=== PATIENT | female | born 1970 | race Two or more races ===

== ENCOUNTER 2024-04-02 12:09 | Emergency (ER) | payer MEDICARE, MEDICAID, SELFPAY ==
--- NOTE | 2024-04-02 12:33 | PC.NURSE ---
SHELLIE; report received at this time. Pt coming from home s/p BLE swelling; pt missed dialysis yesterday. Upon arrival pt has labored breathing but VS remained stable. Pt slightly tachypneic in the 20's. Per manager fraud, We think it's because of her anxiety.
[2024-04-02 12:35] VITALS: BP 153/64; PULSE 81; PULSE 86; RESP 18; RESP 24; TEMP 36.8; O2SAT 99; BMI 40.2
[2024-04-02 12:38] VITALS: BP 153/64; PULSE 79; RESP 20; TEMP 36.9; O2SAT 100
--- NOTE | 2024-04-02 12:52 | PC.NURSE ---
DR. QUINN IN TO SEE PT
--- NOTE | 2024-04-02 13:19 | EDNOTE_ITS ---
ED SOB =RME/HPI General Chief Complaint: General Adult/Misc Complain Stated Complaint: SWOLLEN LEGS Time Seen by Provider: 04/02/24 12:39 Arrival date/time: 04/02/24 12:09 RME / HPI RME / HPI Narrative: 54 year old female with history of CVA, ESRD on HD T//Sun, hypertension, diabetes presents to the ED BIBA from home for evaluation of bilateral leg pain and shortness of breath today. States I couldn't breathe while taking her medi cations this morning. Per medics, patient was saturating well at 99% on room air. While in the ED, patient c feeling pain in her bilateral lower extremities of which she states is chronic (she takes [place] for) that radiates up to her abdomen and then to her chest causing shortness of breath. She has not been able to take her [place] for the last 2 days. Additionally reports she did not receive her dialysis treatment yesterday due to having diarrhea. Denies fevers, chills, cough, chest pain. Related Data Home Medications ?Medication ?Instructions ?Recorded ?Confirmed sertraline 50 mg tablet 50 mg PO QDAY 10/01/18 12/19/21 allopurinol 300 mg tablet 300 mg PO QDAY 01/01/20 12/19/21 folic acid 1 mg tablet 1 mg PO QDAY 09/22/20 12/19/21 calcium acetate(phosphat bind) 667 667 mg PO TID 01/12/21 12/19/21 mg capsule nifedipine 90 mg tablet,extended 90 mg PO QDAY 01/12/21 12/19/21 release 24 hr levetiracetam 500 mg tablet 500 mg PO BID 10/31/21 12/19/21 levothyroxine 50 mcg tablet 1 tab PO QDAY 12/19/21 12/19/21 Previous Rx's ?Medication ?Instructions ?Recorded hydralazine 100 mg tablet 100 mg PO TID #90 tabs 03/17/23 insulin glargine 100 unit/mL (3 10 unit (0.1 mL) subcut QPM #15 mL 03/17/23 mL) subcutaneous pen (Lantus Solostar U-100 Insulin) lisinopril 40 mg tablet 40 mg PO BID #60 tabs 03/17/23 atorvastatin 40 mg tablet 40 mg PO QPM 30 days #30 tabs 03/14/24 atorvastatin 40 mg tablet 40 mg PO QPM 30 days #30 tabs 03/14/24 clopidogrel 75 mg tablet (Plavix) 75 mg PO QDAY 28 days #28 tabs 03/14/24 clopidogrel 75 mg tablet (Plavix) 75 mg PO QDAY 28 days #28 tabs 03/14/24 Allergies Allergy/AdvReac Type Severity Reaction Status Date / Time No Known Allergies Allergy Verified 10/11/23 18:36 Review of Systems Review of Systems Narrative Review of Systems: Gen: No fever, no chills, no weight loss EYES: No discharge, no visual changes, no pain HEENT: No ear pain, no congestion, no sore throat PULM: +shortness of breath, no cough, no congestion CV: No chest pain, no dyspnea on exertion, no palpitations, no chest tightness GI: No nausea, no vomiting, no diarrhea, +abdominal pain down to extremities, no constipation : No frequency, no urgency,? no dysuria Musc/skel: +BLE pain, no joint pain, no back pain Skin: No rash, no ecchymosis, no lesions Psyc: No hallucinations, no depression Heme/Lymph: No easy bleeding or bruising tendencies Neuro: No weakness, no headache Past Medical History Past Medical History NEUROLOGIC: Positive Neurological Disorders, Cerebrovascular Accident, Seizures and Peripheral Neuropathy CARDIAC: Positive Cardiac Disorders, Coronary Artery Disease, Hypercholesterolemia and Hypertension RESPIRATORY: Positive Asthma GASTROINTESTINAL: Positive Gastrointestinal Disorders, Ulcer and Obesity GENITOURINARY: Positive Genitourinary Disorders and Dialysis REPRODUCTIVE: Positive Previous Pregnancies ENT: Positive Cataracts and Retinal Detachment ENDOCRINE: Positive Endocrine Disorders, Diabetes Mellitus Type 1, Diabetes Mellitus Type 2, Hyperthyroidism and Hypothyroidism PSYCHO/SOCIAL: Positive Depression and Anxiety OTHER HISTORY: Positive Hospitalization and Falls Family History FAMILY HISTORY: Positive Family Cardiac Disorders Surgical History SURGICAL: Positive Cardiac Surgery, Vascular Surgery, Eye Surgery and Amputation Social History SMOKING STATUS: Never smoker SECOND HAND EXPOSURE: No SUBSTANCE USE: does not use ED Exam Narrative Physical exam: GENERAL APPEARANCE: AxOx4, no obvious distress, nontoxic appearing HEENT: NC, AT. MMM. EOMI, clear conjunctiva, oropharynx clear. NECK: Supple without lymphadenopathy. No stiffness or restricted ROM. HEART: Normal rate and regular rhythm, normal S1/S1, no m/r/g LUNGS: CTAB, moving air well. No crackles or wheezes are heard. ABDOMEN: Soft, nontender, nondistended with good bowel sounds heard. BACK: No midline C/T/L spine pain or deformity, No CVAT, no obvious deformity. EXTREMITIES: Tense bilateral lower extremities. Without cyanosis or clubbing. MUSCULOSKELETAL: FROM of all major joints, no chest tenderness NEUROLOGICAL: Grossly nonfocal. Alert and oriented, moving all 4 extremities. CN not formally tested but appear grossly intact. Skin: Warm and dry without any rash. Course Quality Measures none Orders Category Date Time Status CBC Stat Lab 04/02/24 12:40 Completed CMP [Comprehensive Metabolic Panel] Stat Lab 04/02/24 14:27 Completed Diazepam [Valium] Med 04/02/24 16:11 Discontinued 10 mg PO X1 ONE HYDROcodone*/APAP 5/325 [[place] 5/325] Med 04/02/24 12:51 Discontinued 2 tab PO X1 ONE Sodium Chloride 0.9% 1000 ml [Ns] 1,000 ml Med 04/02/24 12:51 Discontinued IV 999 mls/hr Reevaluation(s) Reevaluation #1: Patient is sleeping comfortably without signs of respiratory distress. when awoken for reevaluation she still complains of bilateral lower extremity pain. Without signs of respiratory distress. Time: 13:00 Vital Signs Vital signs: Vital Signs Temperature 98.2 F 04/02/24 12:35 Pulse Rate 86 04/02/24 12:35 Respiratory Rate 24 H 04/02/24 12:35 Blood Pressure 153/64 H 04/02/24 12:35 Pulse Oximetry (%) 99 04/02/24 12:35 Oxygen Delivery Method Room Air 04/02/24 12:35 Pulse ox is 99% on room air which is adequate. Shortness of Breath / Dyspnea MDM Narrative MDM Narrative:: Ms. Contreras presents to the emergency department with essentially full body symptoms which includes bilateral lower extremity pain, rating up to the abdomen, causing her to feel short of breath. She is on dialysis, however she does not appear fluid overloaded today. After giving her a dose of hydrocodone of which she takes at home, she is sleeping comfortably here in the emergency department, flat, without respiratory distress or hypoxia. Laboratory testing sent shows no acute metabolic findings, emergent dialysis is not indicated today. As she does appear to have chronic pain, she is advised to follow-up with her primary care doctor for any adjustments or management of her chronic pain. Although she sleeps comfortably, when awake she appears quite anxious, hyperventilates, and panics. She gets very angry with this and is refusing any anxiolytics. ITequila, am scribing for and in the presence of Dr. Lynch. Patient data External records reviewed:: [facility] previous records (I reviewed admission from 03/12/2024 through 03/15/2024) and EMS form Clinical information provided by:: patient and EMS Social determinants that could affect healthcare access:: none Patient has the following chronic illnesses:: CVA, ESRD on HD T/Th/Sat, hypertension, diabetes How is presenting disease/condition affected by chronic disease/condition?: exacerbated by Evaluation data The following diagnostics were reviewed and interpreted by me:: lab results Lab and/or radiology exams considered but not ordered:: None Interpretation Summary: As noted above Medications / Prescriptions Medications or Prescriptions considered but not ordered:: None Medication administrations:: Medication Administration History Discontinued Medications Hydrocodone Bitart/Acetaminophen (Hydrocodone/Apap 5/325 Tablet) 2 tab PO X1 ONE Stop: 04/02/24 12:52 Last Admin: 04/02/24 13:26 Dose: 2 tab Documented By: STACY Diazepam (Diazepam 5 Mg Tablet) 10 mg PO X1 ONE Stop: 04/02/24 16:12 Sodium Chloride (Ns) 1,000 mls @ 999 mls/hr IV .Q1H1M ONE Stop: 04/02/24 13:51 Last Admin: 04/02/24 13:31 Dose: Not Given Documented By: GM Non-Admin Reason: Cancelled by Provider See above Consultations Consultation(s) initiated? (list below): No Diagnosis Shortness of Breath Differential Diagnosis: acute exacerbation of chronic obstructive airways disease, congestive heart failure, community acquired pneumonia and other (Fluid overload ) Most likely diagnosis given after review of the tests above:: Anxiety Muscle spasms Neuropathy ESRD on dialysis Admission Indicated Admission indicated?: not indicated Admission Request Was there a request for admission?: No Disposition Plan Disposition Plan: Discharge Discharge Attestation Discharge Attestation: The patient and all family members were given an opportunity to ask questions and understood the discharge instructions. Discharge instructions specifically effects, indications for sooner follow up or return to the emergency department, and the expected course of current diagnosis. Patient condition: Stable Discharge Plan Plan Patient Disposition: HOME (Self Care) Prescriptions/Referrals Prescriptions/Med Rec: No Action nifedipine 90 mg tablet extended release 24hr 90 mg PO QDAY calcium acetate(phosphat bind) 667 mg capsule 667 mg PO TID Patient Comments: TAKE ONE CAPSULE BY MOUTH THREE TIMES DAILY Rx Instructions: with meals levothyroxine 50 mcg tablet 1 tab PO QDAY Patient Comments: TAKE ONE TABLET BY MOUTH EVERY MORNING 30 minutes BEFORE BREAKFAST sertraline 50 mg Tablet 50 mg PO QDAY allopurinol 300 mg Tablet 300 mg PO QDAY Hold Instructions: f/u pcp folic acid 1 mg Tablet 1 mg PO QDAY levetiracetam 500 mg Tablet 500 mg PO BID insulin glargine [Lantus Solostar U-100 Insulin] 100 unit/mL (3 mL) insulin pen 10 unit SUBCUT QPM Qty: 15 0RF Patient Comments: INJECT 90 UNITS SUBCUTANEOUSLY TWICE DAILY hydralazine 100 mg tablet 100 mg PO TID Qty: 90 0RF lisinopril 40 mg Tablet 40 mg PO BID Qty: 60 0RF clopidogrel [Plavix] 75 mg tablet 75 mg PO QDAY 28 Days Qty: 28 0RF atorvastatin 40 mg tablet 40 mg PO QPM 30 Days Qty: 30 0RF atorvastatin 40 mg tablet 40 mg PO QPM 30 Days Qty: 30 0RF clopidogrel [Plavix] 75 mg tablet 75 mg PO QDAY 28 Days Qty: 28 0RF Referrals: Radha Mane PA-C [Primary Care Provider] - In 1 week Problem List Clinical Impression: Anxiety, Muscle spasm, Neuropathy, ESRD on dialysis Patient/Caregiver Discharge Instructions Education Materials: ED Leg Spasm, ED Muscle Spasm Additional Instructions: You can continue with your normal dialysis tomorrow. Follow-up with your primary care doctor in 2 to 3 days for recheck. You can return to the emergency department sooner symptoms worsen or if you notice any new, concerning issues. Print Language: Kyrgyz Stand Alone Forms: Latonya Award Info., Patient Portal Info Letter
[2024-04-02 13:26] LABS: Basophils % (Auto) 0 % (0-2.5); Eosinophils # (Auto) 0.2 Thou/mm3 (0.0-0.5); Eosinophils % (Auto) 3 % (0-10); Hemoglobin 9.8 g/dL (12.0-16.0); Immature Granulocytes % (Auto) 0 % (0-0); Immature Granulocytes Auto 0.02 Thou/mm3 (0.00-0.00); Lymphocytes # (Auto) 2.3 Thou/mm3 (1.0-4.8); Lymphocytes % (Auto) 38 % (10-50); Mean Corpuscular HGB Conc 32.7 g/dl (31.0-37.0); Mean Corpuscular Hemoglobin 30.8 pg (25.0-35.0); Mean Corpuscular Volume 94 fL (80-100); Monocytes # (Auto) 0.7 Thou/mm3 (0.0-0.8); Monocytes % (Auto) 12 % (0-12); Neutrophils # (Auto) 2.8 Thou/mm3 (1.8-7.7); Neutrophils % (Auto) 46 % (37-80); Nucleated Red Blood Cell % 0 /100 WBC (0); Platelet Count 233 Thou/mm3 (140-440); RDW Standard Deviation 57.2 fL (36.4-46.3); Red Blood Count 3.18 Miln/mm3 (4.00-5.20); White Blood Count 6.1 Thou/mm3 (3.6-11.0)
[2024-04-02] MEDS: HYDROcodone/APAP 5/325 TABLET 2 TAB PO (13:26)
[2024-04-02 13:56] VITALS: BP 125/40; PULSE 79; RESP 18; TEMP 36.7; O2SAT 97
[2024-04-02 15:18] LABS: Alanine Aminotransferase 7 U/L (10-49); Albumin, Serum 4.1 gm/dL (3.5-5.0); Albumin/Globulin Ratio 1.3 (1.2-2.2); Alkaline Phosphatase 61 U/L (46-116); Anion Gap 14 (7-16); Aspartate Amino Transferase < 10 U/L (0-34); BUN/Creatinine Ratio 8 Ratio (12-20); Bilirubin,Total < 0.2 mg/dL (0.3-1.2); Blood Urea Nitrogen 75 mg/dL (9-23); Calcium 8.4 mg/dL (8.3-10.6); Calcium (Corrected) 8.4 mg/dL (8.5-10.1); Carbon Dioxide 20.8 mMol/L (20.0-31.0); Chloride 105 mMol/L (98-107); Creatinine (Component) 8.9 mg/dL (0.6-1.3); Estimated Creatinine Clearance 8.2 mL/min (>60); Globulin 3.2 gm/dL (2.3-3.5); Glucose 148 mg/dL (74-106); Osmolality,Calculated 304 (275-295); Potassium 4.6 mMol/L (3.4-5.1); Sodium 140 mMol/L (136-145); Total Protein 7.3 gm/dL (5.7-8.2); eGFR 5 See Note
[2024-04-02 15:48] VITALS: BP 116/46; PULSE 78; RESP 18; TEMP 36.5; O2SAT 95
--- NOTE | 2024-04-02 16:48 | PC.NURSE ---
pt dressed and refusing to have vs's repeated.
--- NOTE | 2024-04-02 16:49 | PC.NURSE ---
went to discharge pt and pt yelling at staff i want to leave. informed pt that nurse needs to get wheelchair. while [employer] helping pt with shoes, pt started yelling at [employer] and then yelled get out. Don't touch me. nurse shelley to help pt with shoes and into wheelchair, then to truck at front of e.d. with son to take home.
== END 2024-04-02 16:49 | disposition home or self-care (01) ==
PROVIDERS: Emergency Provider Emergency Medicine; PCP Physician Assistant
DX: F41.9 Anxiety disorder, unspecified (principal); M62.838 Other muscle spasm; E11.22 Type 2 diabetes mellitus with diabetic chronic kidney disease; I12.0 Hypertensive chronic kidney disease with stage 5 chronic kidney disease or end stage renal disease; N18.6 End stage renal disease; Z99.2 Dependence on renal dialysis; E11.40 Type 2 diabetes mellitus with diabetic neuropathy, unspecified
CPT/HCPCS: 36415; 80053; 85025; 99283; A9270

== ENCOUNTER 2024-07-08 09:42 | Inpatient (IN) | payer MEDICARE, MEDICAID, SELFPAY ==
[2024-07-08] VITALS (8 sets, daily range): BP systolic 145–201; BP diastolic 68–114; PULSE 76–96; RESP 14–19; TEMP 36.8–38.6; O2SAT 95–98; BMI 40.2
--- NOTE | 2024-07-08 10:14 | XR_ITS ---
EXAMINATION: XR chest 2V ORDERING PROVIDER: JASWANT Feliciano HISTORY: cough fever TECHNIQUE: PA and Lateral radiographs of the chest. COMPARISON: 04/15/2023, chest radiographs. FINDINGS: Lungs: Increased interstitial markings. Mild pulmonary vascular prominence. No consolidation. Pleura: No pneumothorax or pleural effusion. Cardiomediastinal Silhouette: Similar moderate cardiomegaly. Uncoiled aorta. Soft Tissues/Bones: Moderate bony degenerative changes. Partially evaluated previously identified L1 severe compression fracture. IMPRESSION: Positive fluid balance. Superimposed infection in the proper clinical setting.
--- NOTE | 2024-07-08 10:14 | XR_ITS ---
Examination: CT brain head without contrast. 2-D sagittal coronal reconstructions Date and time of exam:July 08, 2024 1030 hrs. Indications: Patient fell 2 days ago with injury to the head, head pain CTDI: vol (mGy):55.7 DLP: (mGycm):1108 Technique: Multiple CT axial sections of the brain have been obtained, 5 mm slice thickness. Contrast has not been administered. 2-D sagittal, coronal reconstructions have been obtained Low dose protocols were performed. One or more of the following dose reduction techniques were used; automated exposure control, adjustment of the mA and/or KV according to patient size, use of iterative reconstruction technique. Findings: No significant ventricular enlargement. Stable large area of encephalomalacia in the left posterior temporal occipital lobe compared with March 12, 2024 Intra-axial or extra-axial hemorrhage density is not seen. No mass effect or midline shift Basal cisterns are not remarkable. Fourth ventricle is midline. Cranial vault intact. Impression: Negative for acute hemorrhage, mass effect or midline shift
--- NOTE | 2024-07-08 10:14 | XR_ITS ---
Examination: CT cervical spine without contrast 2-D sagittal reconstructions 2-D coronal reconstructions 3-D reconstructions. Exam date and time:July 08, 2024 10:30 AM Indications: Patient fell 2 days ago with into the neck, neck pain CTDI:vol (mGy) 10.0 DLP: (mGycm) 233 Technique: Multiple 2 mm axial sections of the cervical spine have been obtained. The coronal and sagittal reconstructions have been obtained. 3-D reconstructions have been obtained. Low dose protocols were performed. One or more of the following dose reduction techniques were used; automated exposure control, adjustment of the mA and/or KV according to patient size, use of iterative reconstruction technique. Findings: Patient motion significantly degrades image quality No gross fracture Impression: Patient motion significantly degrades scan image quality No gross fracture Repeat this study as clinically warranted
--- NOTE | 2024-07-08 10:15 | EKG_ITS ---
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
--- NOTE | 2024-07-08 10:16 | PD.EDRME ---
Rapid Medical Screening Exam E Arrival date/time: 07/08/24 09:42 54-year-old female with a history of hypertension, type 2 diabetes on dialysis Sunday presents to the emergency room with a chief complaint of 10 out of 10 generalized pain throughout her body, fevers, cough, headache, dizziness. Patient states she had a ground-level fall 2 days ago and hit her head. Patient is having headaches neck pain. I have greeted and performed a focused initial assessment of this patient. A comprehensive ED assessment and evaluation of the patient, analysis of all test results, and completion of the medical decision making process will be conducted by additional ED providers. Chief Complaint: Fall Time Seen by Provider: 07/08/24 10:00 Vital signs: Vital Signs Temperature 101.4 F H 07/08/24 09:46 Pulse Rate 96 07/08/24 09:46 Respiratory Rate 17 07/08/24 09:46 Blood Pressure 201/74 H 07/08/24 09:46 Pulse Oximetry (%) 97 07/08/24 09:46 Oxygen Delivery Method Room Air 07/08/24 09:46 Vital signs reviewed by provider: Yes
[2024-07-08] MEDS: ACETAMINOPHEN 325 MG TABLET 650 MG PO ×2 (10:27→18:06)
[2024-07-08] MEDS: HYDROcodone/APAP 5/325 TABLET 1 TAB PO ×2 (10:28→23:37)
[2024-07-08 11:20] LABS: Basophils % (Auto) 0 % (0-2.5); Eosinophils # (Auto) 0.2 Thou/mm3 (0.0-0.5); Eosinophils % (Auto) 2 % (0-10); Hematocrit 34.6 % (36.0-46.0); Hemoglobin 11.6 g/dL (12.0-16.0); Immature Granulocytes % (Auto) 0 % (0-0); Immature Granulocytes Auto 0.03 Thou/mm3 (0.00-0.00); Lymphocytes # (Auto) 1.2 Thou/mm3 (1.0-4.8); Lymphocytes % (Auto) 14 % (10-50); Mean Corpuscular HGB Conc 33.5 g/dl (31.0-37.0); Mean Corpuscular Hemoglobin 31.4 pg (25.0-35.0); Mean Corpuscular Volume 94 fL (80-100); Monocytes # (Auto) 0.6 Thou/mm3 (0.0-0.8); Monocytes % (Auto) 6 % (0-12); Neutrophils # (Auto) 6.7 Thou/mm3 (1.8-7.7); Neutrophils % (Auto) 77 % (37-80); Nucleated Red Blood Cell % 0 /100 WBC (0); Platelet Count 243 Thou/mm3 (140-440); RDW Standard Deviation 46.4 fL (36.4-46.3); Red Blood Count 3.69 Miln/mm3 (4.00-5.20); White Blood Count 8.7 Thou/mm3 (3.6-11.0)
[2024-07-08 11:35] LABS: Partial Thromboplastin Time 28.2 Seconds (22.0-36.0); Prothrombin Time 10.7 Seconds (9.0-12.2)
[2024-07-08 11:39] LABS: B-Type Natriuretic Peptide 692 pg/mL (0-100)
[2024-07-08 11:50] LABS: Alanine Aminotransferase 9 U/L (10-49); Albumin, Serum 4.8 gm/dL (3.5-5.0); Albumin/Globulin Ratio 1.3 (1.2-2.2); Alkaline Phosphatase 89 U/L (46-116); Anion Gap 11 (7-16); Aspartate Amino Transferase 16 U/L (0-34); BUN/Creatinine Ratio 9 Ratio (12-20); Bilirubin,Total 0.2 mg/dL (0.3-1.2); Blood Urea Nitrogen 56 mg/dL (9-23); Calcium 8.6 mg/dL (8.3-10.6); Calcium (Corrected) 8.6 mg/dL (8.5-10.1); Carbon Dioxide 24.7 mMol/L (20.0-31.0); Chloride 103 mMol/L (98-107); Estimated Creatinine Clearance 12.1 mL/min (>60); Globulin 3.7 gm/dL (2.3-3.5); Glucose 184 mg/dL (74-106); Osmolality,Calculated 298 (275-295); Potassium 4.6 mMol/L (3.4-5.1); Sodium 139 mMol/L (136-145); Total Protein 8.5 gm/dL (5.7-8.2); Troponin I < 0.020 ng/mL (0.0-0.045); eGFR 8 See Note
--- NOTE | 2024-07-08 14:34 | PD.EDADULT ---
ED General RME/HPI General Chief complaint: Fall Stated complaint: BODY ACHES Time Seen by Provider: 07/08/24 10:00 Arrival date/time: 07/08/24 09:42 RME / HPI RME / HPI narrative: 07/08/24 09:42 54-year-old female with a history of hypertension, type 2 diabetes on dialysis Sunday presents to the emergency room with a chief complaint of 10 out of 10 generalized pain throughout her body, fevers, cough, headache, dizziness. Patient states she had a ground-level fall 2 days ago and hit her head. Patient is having headaches neck pain. I have greeted and performed a focused initial assessment of this patient. A comprehensive ED assessment and evaluation of the patient, analysis of all test results, and completion of the medical decision making process will be conducted by additional ED providers. DR. CELAYA MAIN ED EVALUATION: 54 year old female with history of CVA, ESRD on HD , hypertension, diabetes presents to the ED for multiple complaints. States 2 days ago she fell and since the fall she has had pain to the entire left side that is aggravated with movements, improved with immobilization. Patient additionally complains of dizziness, body aches, fevers, cough, and headache also beginning 2 days ago. States she missed dialysis today secondary to symptoms. Denies chest pain, shortness of breath, abdominal pain, vomiting, diarrhea, or urinary symptoms. Related Data Home Medications ?Medication ?Instructions ?Recorded ?Confirmed sertraline 50 mg tablet 50 mg PO QDAY 10/01/18 12/19/21 allopurinol 300 mg tablet 300 mg PO QDAY 01/01/20 12/19/21 folic acid 1 mg tablet 1 mg PO QDAY 09/22/20 12/19/21 calcium acetate(phosphat bind) 667 667 mg PO TID 01/12/21 12/19/21 mg capsule nifedipine 90 mg tablet,extended 90 mg PO QDAY 01/12/21 12/19/21 release 24 hr levetiracetam 500 mg tablet 500 mg PO BID 10/31/21 12/19/21 levothyroxine 50 mcg tablet 1 tab PO QDAY 12/19/21 12/19/21 Previous Rx's ?Medication ?Instructions ?Recorded hydralazine 100 mg tablet 100 mg PO TID #90 tabs 03/17/23 insulin glargine 100 unit/mL (3 10 unit (0.1 mL) subcut QPM #15 mL 03/17/23 mL) subcutaneous pen (Lantus Solostar U-100 Insulin) lisinopril 40 mg tablet 40 mg PO BID #60 tabs 03/17/23 Allergies Allergy/AdvReac Type Severity Reaction Status Date / Time No Known Allergies Allergy Verified 10/11/23 18:36 Review of Systems Review of Systems Narrative Review of Systems: Constitutional: SEE HPI Eyes: DENIES; Loss of vision Head/Ear/Nose: DENIES; Loss of hearing Throat: DENIES; Dysphagia Cardiovascular: DENIES; Chest pain, dyspnea or syncope Respiratory: SEE HPI Gastrointestinal: DENIES; Rectal bleeding or melena. Genitourinary: DENIES; Dysuria (painful or difficult urination) Musculoskeletal: SEE HPI Skin: DENIES; Rash Neurological: SEE HPI. DENIES; Loss of function or movement Psychiatric: DENIES; recent major life stressor, emotional problem, illicit drug use or abuse Endocrinology: DENIES; Weight change Hematologic/Lymphatic: DENIES; Abnormal bruising Allergic/Immunologic: DENIES; Urticaria (hives) Past Medical History Past Medical History NEUROLOGIC: Positive Neurological Disorders, Cerebrovascular Accident, Seizures and Peripheral Neuropathy CARDIAC: Positive Cardiac Disorders, Coronary Artery Disease, Hypercholesterolemia and Hypertension RESPIRATORY: Positive Asthma GASTROINTESTINAL: Positive Gastrointestinal Disorders, Ulcer and Obesity GENITOURINARY: Positive Genitourinary Disorders, Renal Disease and Dialysis REPRODUCTIVE: Positive Previous Pregnancies ENT: Positive Cataracts and Retinal Detachment ENDOCRINE: Positive Endocrine Disorders, Diabetes Mellitus Type 1, Diabetes Mellitus Type 2, Hyperthyroidism and Hypothyroidism PSYCHO/SOCIAL: Positive Depression and Anxiety OTHER HISTORY: Positive Hospitalization and Falls Family History FAMILY HISTORY: Positive Family Cardiac Disorders Surgical History SURGICAL: Positive Cardiac Surgery, Vascular Surgery, Eye Surgery and Amputation; Negative Abdominal Surgery Social History SMOKING STATUS: Never smoker SECOND HAND EXPOSURE: No SUBSTANCE USE: does not use ED Exam Narrative Physical exam: Physical Exam: General: The vital signs were reviewed. The patient is non-toxic, in no apparent distress and appears healthy with a patent airway, no respiratory distress and has no apparent circulatory problems. Head & Scalp: Normocephalic, atraumatic. Face: Appears normal and is without lesions, deformity. Ears: Left external pinna appears normal. Right external pinna appears normal. Eyes: The sclera is anicteric. No obvious photophobia. The Left and Right Orbit/Lid/Conjunctiva appears normal without swelling, discoloration or injection. Nose: The nose is without deformity, discharge or tenderness; Throat: Appears normal. The mucous membranes are pink and moist without exudates, redness or mass seen. The tongue appears normal. Neck: The neck is supple and no apparent mass or adenopathy. Chest: The chest wall is normal in size and symmetry and has no chest wall tenderness or crepitus. The patient displays normal ventilator effort without retractions, accessory muscle use and has adequate air movement bilaterally with no wheezes and no rales. Cardiovascular: Regular rate and rhythm; No murmurs, rubs, or gallops; Gastrointestinal: The abdomen appears normal. No obvious hernias or mass. The abdomen is soft and benign, non-distended, with no pain, no guarding and no rebound tenderness. Bowel sounds are present and normal sounding. No CVA tenderness. Genitourinary: Back/Spine: Normal inspection nontender Extremities/Musculoskeletal/lymphatic: The bilateral upper and lower extremities are warm. Has some vague tenderness along her left lower lateral leg with scabs on the upper tib-fib area bilaterally there is no active bleeding there is no bruising she has full passive range of motion of the hips knees and ankles. There is no evidence of arterial insufficiency. There is no evidence of venous insufficiency/edema. The patient spontaneously moves bilateral upper and lower extremities with no pain and no limitation of movement. There is no apparent, injury or trauma. Skin: The skin is warm, dry and intact. No rashes. No petechia. No purpura. No abnormal bruising. The color is appropriate with no cyanosis. Mental status/Psychiatric: Mental status is appropriate for age. The patient has no apparent delusions, visual hallucinations, no apparent audible hallucinations. The patient has no apparent suicidal thoughts/ideation and no apparent homicidal thoughts/ideation. Neurological: The patient is awake, alert, interactive, cordial, cooperative and is oriented to name and situation. The patient follows commands and answers historical question with no impairment. There is no visual disturbance apparent. The pupils are equal and reactive bilaterally with normal eye movements and no diplopia The bilateral upper and lower extremities have normal strength, normal range of motion and normal functioning. The gait, station and balance appear to be baseline with no acute change Course Quality Measures none Orders Category Date Time Status Bedside COVID-19 Antigen Test NOW Care 07/08/24 10:14 Active Bedside Influenza A&B Antigen Test NOW Care 07/08/24 10:14 Completed Bedside Influenza A&B Antigen Test NOW Care 07/08/24 14:43 Completed EKG (ED ONLY) *Do not use* NOW Care 07/08/24 10:[address] cervical spine wo con Stat Exams 07/08/24 10:[address] head/brain wo con Stat Exams 07/08/24 10:14 Completed EKG (ED Only) Stat Exams 07/08/24 10:15 Draft XR chest 2V Stat Exams 07/08/24 10:14 Completed B-Type Natriuretic Peptide Stat Lab 07/08/24 11:09 Completed CBC Stat Lab 07/08/24 11:09 Completed CMP [Comprehensive Metabolic Panel] Stat Lab 07/08/24 11:09 Completed Drug Screen,Urine Stat Lab 07/08/24 10:15 Ordered Magnesium Stat Lab 07/08/24 11:09 Completed PT [Prothrombin Time with INR] Stat Lab 07/08/24 11:09 Completed PTT [Partial Thromboplastin Time] Stat Lab 07/08/24 11:09 Completed RSV [Respiratory Syncytial Virus Ag] Stat Lab 07/08/24 15:41 Received Strep A Rapid Stat Lab 07/08/24 15:36 Received Troponin I Stat Lab 07/08/24 11:09 Completed Urinalysis Stat Lab 07/08/24 10:15 Ordered Acetaminophen Tab [Tylenol Tab] Med 07/08/24 10:17 Discontinued 650 mg PO X1 ONE HYDROcodone*/APAP 5/325 [Shipman 5/325] Med 07/08/24 10:14 Discontinued 1 tab PO X1 ONE Piper/Tazo 3.375 gm Premix [Zosyn] Med 07/08/24 16:00 Discontinued 3.375 gm IV Q8HR Piper/Tazo 3.375 gm Premix [Zosyn] Med 07/08/24 21:00 Active 3.375 gm in 50 ml IV Q12HR Piper/Tazo 3.375 gm Premix [Zosyn] Med 07/08/24 16:00 Active 3.375 gm in 50 ml IV X1 Tet,Diphth,Pertuss(Acell)-Tdap [Boostrix Vacc] Med 07/08/24 15:56 Discontinued 0.5 ml IMI .ONCE ONE Vancomycin Pharmacy to Dose Med 07/08/24 15:47 Active 1 each IV X1 PRN Vancomycin/Ns 1 gm Ivpb 200 ml Med 07/08/24 16:00 Active IV X1 Vital Signs Vital signs: Vital Signs Temperature 101.4 F H 07/08/24 09:46 Pulse Rate 96 07/08/24 09:46 Respiratory Rate 17 07/08/24 09:46 Blood Pressure 201/74 H 07/08/24 09:46 Pulse Oximetry (%) 97 07/08/24 09:46 Oxygen Delivery Method Room Air 07/08/24 09:46 Pulse ox is 97% on room air which is adequate. [facility] Patient data External records reviewed:: [facility] previous records (I reviewed ED visit on 04/02/2024) and EMS form Clinical information provided by:: patient Social determinants that could affect healthcare access:: none Patient has the following chronic illnesses:: CVA, ESRD on HD T/Th/Sat, hypertension, diabetes How is presenting disease/condition affected by chronic disease/condition?: exacerbated by Evaluation data The following diagnostics were reviewed and interpreted by me:: lab results, radiology exam(s) and EKG tracing(s) (Sinus rhythm, rate 92, no STEMI. ) Lab and/or radiology exams considered but not ordered:: None Interpretation Summary: Ordering Physician: Antonio Barnes Date of Service: 07/08/24 Procedure(s): CT cervical spine wo con Accession Number(s): [id number] cc: Antonio Barnes; Quirino Willson MD; Radha Mane PA-C~ Examination: CT cervical spine without contrast 2-D sagittal reconstructions 2-D coronal reconstructions 3-D reconstructions. Exam date and time:July 08, 2024 10:30 AM Indications: Patient fell 2 days ago with into the neck, neck pain CTDI:vol (mGy) 10.0 DLP: (mGycm) 233 Technique: Multiple 2 mm axial sections of the cervical spine have been obtained. The coronal and sagittal reconstructions have been obtained. 3-D reconstructions have been obtained. Low dose protocols were performed. One or more of the following dose reduction techniques were used; automated exposure control, adjustment of the mA and/or KV according to patient size, use of iterative reconstruction technique. Findings: Patient motion significantly degrades image quality No gross fracture Impression: Patient motion significantly degrades scan image quality No gross fracture Repeat this study as clinically warranted Dictated By: Quirino Willson MD Signed By: <Electronically signed by Quirino Willson MD in OV> 07/08/24 1103 Ordering Physician: Antonio Barnes Date of Service: 07/08/24 Procedure(s): XR chest 2V Accession Number(s): [id number] cc: Vadim Estes MD; Antonio Barnes; Radha Mane PA-C~ EXAMINATION: XR chest 2V ORDERING PROVIDER: JASWANT Feliciano HISTORY: cough fever TECHNIQUE: PA and Lateral radiographs of the chest. COMPARISON: 04/15/2023, chest radiographs. FINDINGS: Lungs: Increased interstitial markings. Mild pulmonary vascular prominence. No consolidation. Pleura: No pneumothorax or pleural effusion. Cardiomediastinal Silhouette: Similar moderate cardiomegaly. Uncoiled aorta. Soft Tissues/Bones: Moderate bony degenerative changes. Partially evaluated previously identified L1 severe compression fracture. IMPRESSION: Positive fluid balance. Superimposed infection in the proper clinical setting. Dictated By: Vadim Estes MD Signed By: <Electronically signed by Vadim Estes MD in OV> 07/08/24 1122 Ordering Physician: Antonio Barnes Date of Service: 07/08/24 Procedure(s): CT head/brain wo con Accession Number(s): [id number] cc: Antonio Barnes; Quirino Willson MD; Radha Mane PA-C~ Examination: CT brain head without contrast. 2-D sagittal coronal reconstructions Date and time of exam:July 08, 2024 1030 hrs. Indications: Patient fell 2 days ago with injury to the head, head pain CTDI: vol (mGy):55.7 DLP: (mGycm):1108 Technique: Multiple CT axial sections of the brain have been obtained, 5 mm slice thickness. Contrast has not been administered. 2-D sagittal, coronal reconstructions have been obtained Low dose protocols were performed. One or more of the following dose reduction techniques were used; automated exposure control, adjustment of the mA and/or KV according to patient size, use of iterative reconstruction technique. Findings: No significant ventricular enlargement. Stable large area of encephalomalacia in the left posterior temporal occipital lobe compared with March 12, 2024 Intra-axial or extra-axial hemorrhage density is not seen. No mass effect or midline shift Basal cisterns are not remarkable. Fourth ventricle is midline. Cranial vault intact. Impression: Negative for acute hemorrhage, mass effect or midline shift Dictated By: Quirino Willson MD Signed By: <Electronically signed by Quirino Willson MD in OV> 07/08/24 1049 Medications Medications considered but not ordered:: None Medication administrations:: Medication Administration History Piperacillin/Tazobactam/Dextrose (Zosyn) 3.375 gm in 50 mls @ 100 mls/hr IV X1 ONE Stop: 07/08/24 16:29 Piperacillin/Tazobactam/Dextrose (Zosyn) 3.375 gm in 50 mls @ 12.5 mls/hr IV Q12HR RONY; Protocol Stop: 07/15/24 20:59 Vancomycin/Sodium Chloride (Vancomycin/Ns 1 Gm Ivpb) 200 mls @ 120 mls/hr IV X1 ONE Stop: 07/08/24 17:39 Pharmacy Consult (Vancomycin Pharmacy To Dose 1 Each Each) 1 each IV X1 PRN PRN Reason: CONSULT Stop: 08/07/24 15:46 Discontinued Medications Acetaminophen (Acetaminophen 325 Mg Tablet) 650 mg PO X1 ONE Stop: 07/08/24 10:18 Last Admin: 07/08/24 10:27 Dose: 650 mg Documented By: VG Hydrocodone Bitart/Acetaminophen (Hydrocodone/Apap 5/325 Tablet) 1 tab PO X1 ONE Stop: 07/08/24 10:15 Last Admin: 07/08/24 10:28 Dose: 1 tab Documented By: VG Diphtheria/Tetanus/Acell Pertussis (Diphth,Pertuss(Acell),Tet Vac 0.5 Ml Syr- Adult) 0.5 ml IMi .ONCE ONE Stop: 07/08/24 15:57 Piperacillin/Tazobactam/Dextrose (Piperacillin/Tazo In D5w Ivpb 3.375 Gm/50 Ml Bag) 3.375 gm IV Q8HR RONY Stop: 07/15/24 15:59 See above Consultations Consultation(s) initiated? (list below): Yes Consultation #1 (Physician, Specialty, Details): I spoke with patients laminator preforms Dr. Win, advised admitting the patient. Will consult. Time: 15:45 Consultation #2 (Physician, Specialty, Details): I spoke with hospitalist team. They accept the patient for admission. Time: 15:50 Diagnosis Differential Diagnosis ED Complaint MDM: viral illness, fevers, sepsis, pneumonia, UTI Most likely diagnosis given after review of the tests above:: Fever ESRD on HD Hx of fall Abrasion of knee Fluid overload Admission Indicated Admission indicated?: indicated Explain why admission is indicated or not indicated:: Indicated for dialysis Admission Request Was there a request for admission?: Yes Admission Attestation Admission request attestation: Discussed case with [] from Hospitalist service regarding admission. Discussed patients ED course, exam findings, labs, and radiology results. The Hospitalist [agrees,declines] to accept the patient for admission. Disposition Plan Disposition Plan: Admit Medical Decision Making MDM Narrative MDM Narrative: Patient 54-year-old who states she bodyaches and missed her dialysis today. She is end-stage renal failure patient she also mentions she fell to 3 days ago and complained of left-sided pain to me but the nurse reports me she was going to right-sided pain to her. Nonetheless clinically she moves her hips knees and lower extremities without any hesitancy and there is no obvious deformity there are some scabs on the lower upper tib-fib lower knee area bilaterally Medical workup Soder initial vital signs at 9:00 this morning with a blood pressure of 201/74 and a temperature of 101.4 latest blood pressure is 140/77 temperature is 98.4. Workup for the fever was unclear chest x-ray was negative CT of the head was negative CT of the cervical spine is negative. Chest x-ray was negative for any infiltrates no effusion large heart fluid overloaded. White count 8.7 with a hemoglobin 11.6 with 77% neutrophils sodium 139 potassium 4.6 chloride 103 CO2 24.7 BUN and is 56 creatinine of 6 consistent with her chronic renal failure. BNP slightly elevated 692 \ Because of the fluid overload missing her dialysis fever of unknown origin we have to rule out sepsis so organ to admit her started on Vanco and Zosyn. Differential Diagnosis Differential Diagnosis: viral illness, fevers, sepsis, pneumonia, UTI Lab Data 07/08/24 11:09 07/08/24 11:09 Labs: Lab Results 07/08/24 Range/Units 11:09 WBC 8.7 (3.6-11.0) Thou/mm3 RBC 3.69 L (4.00-5.20) Miln/mm3 Hgb 11.6 L (12.0-16.0) g/dL Hct 34.6 L (36.0-46.0) % MCV 94 (80-100) fL MCH 31.4 (25.0-35.0) pg MCHC 33.5 (31.0-37.0) g/dl RDW Std Deviation 46.4 H (36.4-46.3) fL Plt Count 243 (140-440) Thou/mm3 Neut % (Auto) 77 (37-80) % Lymph % (Auto) 14 (10-50) % Th[place]morton % (Auto) 6 (0-12) % Eos % (Auto) 2 (0-10) % Baso % (Auto) 0 (0-2.5) % Neut # (Auto) 6.7 (1.8-7.7) Thou/mm3 Lymph # (Auto) 1.2 (1.0-4.8) Thou/mm3 [place]rockmorton # (Auto) 0.6 (0.0-0.8) Thou/mm3 Eos # (Auto) 0.2 (0.0-0.5) Thou/mm3 Baso # (Auto) 0.0 (0.0-0.2) Thou/mm3 Immature Gran # (Auto) 0.03 H (0.00-0.00) Thou/mm3 Absolute Nucleated RBC 0.00 (0.00-0.00) Thou/mm3 Immature Gran % 0 (0-0) % Nucleated RBC % 0 (0) /100 WBC PT 10.7 (9.0-12.2) Seconds INR 1.0 (0.9-1.3) APTT 28.2 (22.0-36.0) Seconds Sodium 139 (136-145) mMol/L Potassium 4.6 (3.4-5.1) mMol/L Chloride 103 (98-107) mMol/L Carbon Dioxide 24.7 (20.0-31.0) mMol/L Anion Gap 11 (7-16) BUN 56 H (9-23) mg/dL Creatinine 6.0 H* (0.6-1.3) mg/dL Estim Creat Clear Calc 12.1 L (>60) mL/min eGFR 8 L* (60 - ) See Note BUN/Creatinine Ratio 9 L (12-20) Ratio Glucose 184 H (74-106) mg/dL Calculated Osmolality 298 H (275-295) Calcium 8.6 (8.3-10.6) mg/dL Corrected Calcium 8.6 (8.5-10.1) mg/dL Magnesium 2.0 (1.6-2.6) mg/dL Total Bilirubin 0.2 L (0.3-1.2) mg/dL AST 16 (0-34) U/L ALT 9 L (10-49) U/L Alkaline Phosphatase 89 (46-116) U/L Troponin I < 0.020 (0.0-0.045) ng/mL B-Natriuretic Peptide 692 H* (0-100) pg/mL Total Protein 8.5 H (5.7-8.2) gm/dL Albumin 4.8 (3.5-5.0) gm/dL Globulin 3.7 H (2.3-3.5) gm/dL Albumin/Globulin Ratio 1.3 (1.2-2.2) Discharge Plan Plan Patient Disposition: Admit Acute Care w/in Hospital Disposition Comment: Hospitalist admit Dr. Win to consult for nephrology Prescriptions/Referrals Prescriptions/Med Rec: No Action nifedipine 90 mg tablet extended release 24hr 90 mg PO QDAY calcium acetate(phosphat bind) 667 mg capsule 667 mg PO TID Patient Comments: TAKE ONE CAPSULE BY MOUTH THREE TIMES DAILY Rx Instructions: with meals levothyroxine 50 mcg tablet 1 tab PO QDAY Patient Comments: TAKE ONE TABLET BY MOUTH EVERY MORNING 30 minutes BEFORE BREAKFAST sertraline 50 mg Tablet 50 mg PO QDAY allopurinol 300 mg Tablet 300 mg PO QDAY folic acid 1 mg Tablet 1 mg PO QDAY levetiracetam 500 mg Tablet 500 mg PO BID insulin glargine [Lantus Solostar U-100 Insulin] 100 unit/mL (3 mL) insulin pen 10 unit SUBCUT QPM Qty: 15 0RF Patient Comments: INJECT 90 UNITS SUBCUTANEOUSLY TWICE DAILY hydralazine 100 mg tablet 100 mg PO TID Qty: 90 0RF lisinopril 40 mg Tablet 40 mg PO BID Qty: 60 0RF Referrals: Radha Mane PA-C [Primary Care Provider] - In 1 week Problem List Clinical Impression: Fever, End stage renal failure on dialysis, History of fall, Abrasion of knee, Fluid overload Patient/Caregiver Discharge Instructions Print Language: Czech Stand Alone Forms: Latonya Award Info., Patient Portal Info Letter
[2024-07-08] MEDS: DIPHTH,PERTUSS(ACELL),TET VAC 0.5 ML SYR- ADULT IMi (16:21)
[2024-07-08 16:28] LABS: Respiratory Syncytial Virus Ag Negative (Negative)
[2024-07-08 16:54] LABS: Strep A Rapid Negative (Negative)
[2024-07-08] MEDS: PIPER/TAZO 3.375 GM PREMIX 3.375 GM/50 ML BAG IV ×2 (16:56→21:27)
--- NOTE | 2024-07-08 17:23 | XR_ITS ---
Examination: CT abdomen and pelvis without contrast. Coronal 3-D reconstructions. Sagittal 2-D reconstructions. Date and time of exam:July 08, 2024 1813 hrs. Indications: Generalized bodyaches abdominal pain today CTDI: vol (mGy): 50 DLP: (mGycm): 941 Technique: Axial images of the abdomen have been obtained, 3 mm slice thickness Intravenous contrast material has not been administered. Low dose protocols were performed. One or more of the following dose reduction techniques were used; automated exposure control, adjustment of the mA and/or KV according to patient size, use of iterative reconstruction technique. Findings: Significant pneumonia left base Trace pericardial effusion No focal liver or splenic lesions Distended gallbladder No pancreatic or adrenal mass Abdominal aortic calcification no aneurysmal dilatation Moderate right hydronephrosis which appears to be a ureteropelvic junction obstruction, also consider urinary tract infection No bowel obstruction Mild thickening of urinary bladder wall No pelvic mass Prominent osteopenia with chronic worse deformity L1 Impression: Significant left base pneumonia Moderate right hydronephrosis, differential would agree urinary tract infection, congenital right ureteropelvic junction obstruction Consider elective nuclear medicine renogram follow-up with Adolfo
[2024-07-08] MEDS: VANCOMYCIN/NS 1 GM IVPB 200 ML IV (17:52)
--- NOTE | 2024-07-08 18:03 | ESHP_ITS ---
<Statement entered by Malinda Farrell MD - 07/09/24 15:02> Patient is a 54-year-old female with past medical history significant for CVA, hypertension, diabetes on chronic insulin, seizures, end-stage renal disease following Dr. Win who presented to the ED with generalized weakness and lower abdominal pain status post fall. Patient states that she has been having a cough, fever/chills, dysuria for the last 3 days in addition to her abdominal pain. Patient denies any sick contacts around her as she lives alone. Patient states that she fell on her left side, however no signs of swelling or redness noted in her lower extremities. ED course significant for elevated BNP and BUN/creatinine. Imaging showed stable encephalomalacia on the left side but no bleeds. Chest x-ray showed vascular congestion. Patient will be admitted to hospital for further management of upper respiratory tract infection versus UTI. Pending cultures and CT abdomen pelvis imaging. Will control patient's blood pressure by 25% in the next [address] Win, nephrology was consulted and will resume patient's hemodialysis schedule here in the hospital. Will resume her home medications for hypertension, seizures and hypothyroidism, start long- acting insulin for her diabetes, along with sliding scale insulin. I discussed with and supervised the newsroom intern physician who took care of this patient. I personally saw and examined the patient and discussed the assessment and plan with the entire medicine team, including my attending Dr. Rodriguez, I agree with most of the assessment and plan as documented below Malinda Farrell M.D. PGY-2 Documentation for date of: 07/08/24 HPI History of Present Illness Chief complaint: Generalized body aches History of present illness: 54 y/o F with PMHx significant for CVA, hypertension, insulin-dependent diabetes, seizures, ESRD (//Sun) presents to ED from home with chief complaint of generalized bodyaches x 2 days status post fall. Patient was in her usual state of health until Sunday when she tripped and fell in her kitchen. Fall was unwitnessed, patient denies striking her head or loss of conscious, was able to get to standing position without assistance. At the time patient was noted left hip pain from the fall. The following day, patient developed generalized bodyaches, chills, cough, bladder incontinence. Patient. Mild relief with Tylenol cold and flu, otherwise symptoms remain unchanged until patient presented to ED today. Patient denies shortness of breath, chest pain, nausea, vomiting, dysuria. Patient did miss today's dialysis session to go to [place]. ED COURSE: Labs significant for: WBC 8.7, hemoglobin 0.6, potassium 4.6, BUN 56, creatinine 6.0, EGFR 8, troponin negative, BNP 692. Flu, RSV, COVID, strep negative. Imaging significant for: Cervical spine CT unremarkable. Head CT showed stable encephalomalacia left side, no acute bleed. Chest x-ray showed vascular congestion, potential superimposed infection left lower lobe. Patient febrile on arrival 101.4. Patient started on Zosyn and Vanco. Received 1 tab [place] 5. PMH: CVA, hypertension, diabetes, seizures, ESRD PSH: None SH: Denies alcohol, tobacco, illicit drug use. Allergies:?NKDA Medications: Insulin, hydralazine, levetiracetam, levothyroxine, lisinopril, nifedipine, sertraline Review of Systems Review of Systems Systems Reviewed: All systems reviewed, normal except as documented Past Medical History Past Medical History Comments PMH COMMENT: PMH: CVA, hypertension, diabetes, seizures, ESRD PSH: None SH: Denies alcohol, tobacco, illicit drug use. Allergies:?NKDA Medications: Insulin, hydralazine, levetiracetam, levothyroxine, lisinopril, nifedipine, sertraline Exam Vital Signs Temp Pulse Resp BP Pulse Ox O2 Del Method 98.3 F 81 18 195/73 H 97 Room Air 07/08/24 16:07/08/24 16:07/08/24 16:07/08/24 16:07/08/24 16:07/08/24 16:00 Narrative Exam PE: Gen: Well-developed and well-nourished. Mildly distressed. Obese. HEENT: NCAT, EOMI, MMM, anicteric conjunctivae. Pinpoint pupils. CVS: normal S1 and S2. RRR. No M/R/G. Resp: CTA B/L. No rhonchi, rales, crackles or wheezing. Diminished due to body habitus. Abd: soft, non-distended. Bilateral lower quadrant tenderness. MSK: Good ROM in BUE & BLE. No rash. Trace edema. Bilateral knee abrasions. Right upper extremity fistula. Neuro: CN II-XII grossly intact. Strength 5/5 in left upper extremity. Strength 3/5 right upper extremity. Strength 2/5 bilateral lower extremity. Alert and oriented x2. Baseline for patient. Results: Labs 07/09/24 05:23 07/09/24 05:23 Labs: Short CBC 07/08/24 Range/Units 11:09 WBC 8.7 (3.6-11.0) Thou/mm3 Hgb 11.6 L (12.0-16.0) g/dL Hct 34.6 L (36.0-46.0) % Plt Count 243 (140-440) Thou/mm3 BMP 07/08/24 11:09 Sodium 139 Potassium 4.6 Chloride 103 Carbon Dioxide 24.7 BUN 56 H Creatinine 6.0 H* Glucose 184 H Calcium 8.6 Cardiac Enzymes 07/08/24 Range/Units 11:09 Troponin I < 0.020 (0.0-0.045) ng/mL Liver Function 07/08/24 Range/Units 11:09 Total Bilirubin 0.2 L (0.3-1.2) mg/dL AST 16 (0-34) U/L ALT 9 L (10-49) U/L Alkaline Phosphatase 89 (46-116) U/L Albumin 4.8 (3.5-5.0) gm/dL Quality Measures Quality Measures VTE prophylaxis Medications Home Medications and Allergies Home Medications ?Medication ?Instructions ?Recorded ?Confirmed ?Type sertraline 50 mg tablet 50 mg PO QDAY 10/01/1812/19 History allopurinol 300 mg tablet 300 mg PO QDAY 01/01/2011/29 History folic acid 1 mg tablet 1 mg PO QDAY 09/22/20 History calcium acetate(phosphat bind) 667 667 mg PO TID 01/1212/19/21 History mg capsule nifedipine 90 mg tablet,extended 90 mg PO QDAY 12/19/21 History release 24 hr levetiracetam 500 mg tablet 500 mg PO BID 10/31/21 History levothyroxine 50 mcg tablet 1 tab PO QDAY 12/19/21 History Allergies Allergy/AdvReac Type Severity Reaction Status Date / Time No Known Allergies Allergy Verified 10/11/23 18:36 Visit Medications Acetaminophen (Acetaminophen 325 Mg Tablet) 650 mg PO Q6H PRN PRN Reason: Fever >100.4 or pain 1-3 Stop: 08/07/24 17:16 Hydrocodone Bitart/Acetaminophen (Hydrocodone/Apap 5/325 Tablet) 1 tab PO Q4HR PRN PRN Reason: PAIN SCALE 4-10(Mod-Sev Stop: 07/13/24 17:16 Dextrose (Dextrose 50%-Water Inj 50 Ml Syringe) 25 ml IV Q15MIN PRN PRN Reason: BG 50-70 responsive npo pt Stop: 08/07/24 17:28 Dextrose (Dextrose 50%-Water Inj 50 Ml Syringe) 50 ml IV Q15MIN PRN PRN Reason: BG <50 OR BG <70 & pt unresponsive Stop: 08/07/24 17:28 Glucagon (Glucagon Inj 1 Mg Vial) 1 mg IM Q15MIN PRN PRN Reason: BG <70, and no IV access Heparin Sodium (Porcine) (Heparin Sod Inj 5000 Unit/Ml Vial) 5,000 unit SC BID RONY Stop: 07/22/24 20:59 Hydralazine HCl (Hydralazine Hcl 25 Mg Tablet) 100 mg PO TID RONY Stop: 08/07/24 21:59 Piperacillin/Tazobactam/Dextrose (Zosyn) 3.375 gm in 50 mls @ 12.5 mls/hr IV Q12HR RONY; Protocol Stop: 07/15/24 20:59 Insulin Glargine (Insulin Glargine (Lantus) 5 Unit/0.05 Ml (Per 5 Units)) 10 unit SC HS RONY Stop: 08/07/24 20:59 Insulin Human Lispro (Insulin Lispro (Admelog) 1 Unit/0.01 Ml Unit) 0 unit SC AC RONY; Protocol Stop: 08/08/24 07:29 Levetiracetam (Levetiracetam 250 Mg Tablet) 500 mg PO BID RONY Stop: 08/07/24 20:59 Levothyroxine Sodium (Levothyroxine Sodium 25 Mcg Tablet) 25 mcg PO ACBR RONY Stop: 08/08/24 05:59 Ondansetron HCl (Ondansetron Inj 2 Mg/Ml Inj 2 Ml) 4 mg IV Q6H PRN; Protocol PRN Reason: NAUSEA OR VOMITING Stop: 08/07/24 17:16 Pharmacy Consult (Vancomycin Pharmacy To Dose 1 Each Each) 1 each IV X1 PRN PRN Reason: CONSULT Stop: 08/07/24 15:46 Discontinued Medications Acetaminophen (Acetaminophen 325 Mg Tablet) 650 mg PO X1 ONE Stop: 07/08/24 10:18 Last Admin: 07/08/24 10:27 Dose: 650 mg Hydrocodone Bitart/Acetaminophen (Hydrocodone/Apap 5/325 Tablet) 1 tab PO X1 ONE Stop: 07/08/24 10:15 Last Admin: 07/08/24 10:28 Dose: 1 tab Diphtheria/Tetanus/Acell Pertussis (Diphth,Pertuss(Acell),Tet Vac 0.5 Ml Syr- Adult) 0.5 ml IMi .ONCE ONE Stop: 07/08/24 15:57 Last Admin: 07/08/24 16:21 Dose: 0.5 ml Piperacillin/Tazobactam/Dextrose (Zosyn) 3.375 gm in 50 mls @ 100 mls/hr IV X1 ONE Stop: 07/08/24 16:29 Last Infusion: 07/08/24 17:30 Dose: Infused Vancomycin/Sodium Chloride (Vancomycin/Ns 1 Gm Ivpb) 200 mls @ 120 mls/hr IV X1 ONE Stop: 07/08/24 17:39 Last Admin: 07/08/24 17:52 Dose: 120 mls/hr Piperacillin/Tazobactam/Dextrose (Piperacillin/Tazo In D5w Ivpb 3.375 Gm/50 Ml Bag) 3.375 gm IV Q8HR RONY Stop: 07/15/24 15:59 Assessment & Plan Plan 54 y/o F with PMHx significant for CVA, hypertension, insulin-dependent diabetes, seizures, ESRD (T//Sun) presents to ED from home with chief complaint of generalized bodyaches x 2 days status post fall, admitted for infection respiratory versus UTI. #Respiratory infection versus UTI, nonseptic #Status post ground-level fall Patient presented with chief complaint of generalized body pain following an unwitnessed current level fall without loss of consciousness or head injury. Patient stated she tripped over her feet but was able to stand without assistance. Over the next 2 days patient developed worsening generalized bodyaches, chills, cough, and bladder incontinence. Head CT showed stable encephalomalacia compared to previous CT, no acute bleed. Chest x-ray showed vascular congestion, potential superimposed infection of left lower lobe. Urinalysis pending. Blood cultures pending. Patient nonseptic, no leukocytosis, but febrile 101.4. -Follow-up urine and blood culture -Vancomycin pharmacy dosing (started 07/08) -Zosyn 3.375 g IV every 8 hours () -Tylenol as needed -CT abdomen/pelvis pending, follow-up #Hypertensive urgency #Hypertension Patient has history of hypertension treated with outpatient medications. Patient presented with elevated blood pressure: 201/74. Patient denies headaches, visual changes. Troponin negative. -Monitor blood pressure -Goal of reduction less than or equal to 25% over 24 hours -Resume home meds: Hydralazine 100 mg p.o. 3 times daily #ESRD on dialysis #Volume overload Patient has history of ESRD, receives dialysis Sunday, , Sunday. Patient scheduled to see dialysis today, however physician to present to ED. Patient follows with resident program specialist Dr. Win who has been consulted. Patient has signs of volume overload with vascular congestion on chest x-ray, likely due to delay in scheduled dialysis. BNP elevated 692, above patient's baseline. -Avoid nephrotoxic medications -Renally dose meds -Dr. Win consulted, appreciate recommendation -Resume dialysis as per patient's regular schedule in hospital #Seizure disorder Patient has history of seizure disorder. -Resume home meds: Levetiracetam 500 mg p.o. twice daily -Seizure precautions #Diabetes, insulin-dependent Patient has history of insulin-dependent diabetes. A1c 7.5% as of February 2024. -Insulin sliding scale -A1c ordered, follow-up -Lantus 10 units at bedtime #Hypothyroidism Patient history of hypothyroidism. -Resume home meds, levothyroxine 25 mcg p.o. daily DVT prophylaxis: Heparin GI prophylaxis: None Diet: Carb consistent low, renal Lines: Peripheral IV Code status: Full code Plan of care discussed with senior resident Dr. Farrell PGY?[address] Rodriguez. Gagan Winston MD PGY?1 Attending Provider Attestation/Addendum Fatmata Sen, DO, attest that I was physically present for the [place] portions of the service and evaluated the patient with the resident and I reviewed and discussed the case with the resident and agree with the resident's findings and plans of care as documented above Patient is a 54-year-old female with past medical history of CVA, hypertension, insulin-dependent diabetes, end-stage renal disease on hemodialysis [TT S] who presented to the ED due to generalized weakness and pain. Patient states that she fell on Sunday after she had tripped over her foot. She denies any loss of consciousness. Patient has since been complaining of generalized pain and fatigue. She also endorses having suprapubic pain. Patient has a history of urinary incontinence, but denies any dysuria. She does endorse some pain in her hip after the fall. Patient also endorses having a sore throat, fever and nonproductive cough. She denies any chest pain, shortness of breath, chills, nausea or vomiting. Patient was noted to have fever in the ED with temperature 101.4. A CT head, cervical spine CT was done showing no acute intracranial findings or fractures. A chest x-ray was done showing moderate vascular congestion and superimposed pneumonia in the left lower lobe. Patient denies any sick contacts. She states she lives alone and ambulates with a walker. Patient was given vancomycin and Zosyn in the ED. Since patient is due for dialysis today, nephro was consulted from ED and will be going to dialysis today. Will admit patient to med/telemetry for further workup medical management of URI versus UTI. Will order cultures and follow-up with final cultures and sensitivities and further narrow antibiotic coverage. Will order physical therapy due to fall and generalized weakness.
[2024-07-08] MEDS: HEPARIN SOD INJ 5000 UNIT/ML VIAL SC (21:25)
[2024-07-08] MEDS: levETIRAcetam 250 MG TABLET 500 MG PO (21:26)
[2024-07-08] MEDS: hydrALAZINE HCL 25 MG TABLET 100 MG PO (21:26)
[2024-07-08] MEDS: INSULIN GLARGINE (Lantus) 5 UNIT/0.05 ML (PER 5 UNITS) 10 UNIT SC (21:27)
[2024-07-09] VITALS (28 sets, daily range): BP systolic 125–181; BP diastolic 53–99; PULSE 64–96; RESP 16–19; TEMP 36–36.6; O2SAT 96–99; BMI 13.0
[2024-07-09] MEDS: hydrALAZINE HCL 25 MG TABLET 100 MG PO ×3 (05:19→21:26)
[2024-07-09] MEDS: LEVOTHYROXINE SODIUM 25 MCG TABLET PO (05:19)
[2024-07-09 05:58] LABS: Basophils # (Auto) 0.1 Thou/mm3 (0.0-0.2); Basophils % (Auto) 1 % (0-2.5); Eosinophils # (Auto) 0.1 Thou/mm3 (0.0-0.5); Eosinophils % (Auto) 2 % (0-10); Hematocrit 34.4 % (36.0-46.0); Hemoglobin 11.1 g/dL (12.0-16.0); Immature Granulocytes % (Auto) 0 % (0-0); Immature Granulocytes Auto 0.03 Thou/mm3 (0.00-0.00); Lymphocytes # (Auto) 1.5 Thou/mm3 (1.0-4.8); Lymphocytes % (Auto) 18 % (10-50); Mean Corpuscular HGB Conc 32.3 g/dl (31.0-37.0); Mean Corpuscular Hemoglobin 31.2 pg (25.0-35.0); Mean Corpuscular Volume 97 fL (80-100); Monocytes # (Auto) 0.8 Thou/mm3 (0.0-0.8); Monocytes % (Auto) 9 % (0-12); Neutrophils # (Auto) 5.8 Thou/mm3 (1.8-7.7); Neutrophils % (Auto) 70 % (37-80); Nucleated Red Blood Cell % 0 /100 WBC (0); Platelet Count 239 Thou/mm3 (140-440); RDW Standard Deviation 48.6 fL (36.4-46.3); Red Blood Count 3.56 Miln/mm3 (4.00-5.20); White Blood Count 8.2 Thou/mm3 (3.6-11.0)
[2024-07-09 06:28] LABS: Alanine Aminotransferase < 7 U/L (10-49); Albumin, Serum 4.3 gm/dL (3.5-5.0); Albumin/Globulin Ratio 1.2 (1.2-2.2); Alkaline Phosphatase 83 U/L (46-116); Anion Gap 13 (7-16); Aspartate Amino Transferase 14 U/L (0-34); BUN/Creatinine Ratio 9 Ratio (12-20); Bilirubin,Total 0.4 mg/dL (0.3-1.2); Blood Urea Nitrogen 60 mg/dL (9-23); Calcium 8.4 mg/dL (8.3-10.6); Calcium (Corrected) 8.4 mg/dL (8.5-10.1); Carbon Dioxide 22.1 mMol/L (20.0-31.0); Chloride 103 mMol/L (98-107); Creatinine (Component) 6.4 mg/dL (0.6-1.3); Estimated Creatinine Clearance 11.6 mL/min (>60); Globulin 3.7 gm/dL (2.3-3.5); Glucose 97 mg/dL (74-106); Magnesium 2.2 mg/dL (1.6-2.6); Osmolality,Calculated 292 (275-295); Phosphorous 5.9 mg/dL (2.4-5.1); Potassium 5.3 mMol/L (3.4-5.1); Sodium 138 mMol/L (136-145); Vancomycin,Random 16.4 mcg/mL; eGFR 7 See Note
[2024-07-09 06:30] LABS: Glucose Estimated Average 189 mg/dL (80-131); Hemoglobin A1C 8.2 % Hgb (4.8-6.0)
[2024-07-09] MEDS: HEPARIN SOD INJ 1000 UNIT/ML VIAL 10 ML IV (08:53)
--- NOTE | 2024-07-09 14:53 | ESPR_ITS ---
<Statement entered by Malinda Farrell MD - 07/09/24 15:38> I discussed with and supervised the international marketing coordinator physician who took care of this patient. I personally saw and examined the patient and discussed the assessment and plan with the entire medicine team, including my attending , I agree with most of the assessment and plan as documented below Malinda Farrell M.D. PGY-2 Documentation for date of: 07/09/24 Subjective Subjective Interval history: No overnight events. Patient seen and examined during dialysis, resting comfortably. Endorses generalized bodyaches improved, denies shortness of breath, chest pain, fever, chills, nausea, vomiting. Follow-up cultures. Continue IV antibiotics. Exam Vital Signs Temp Pulse Resp BP Pulse Ox O2 Del Method O2 Flow Rate 97.8 F 73 18 153/71 H 99 Nasal Cannula 1 07/09/24 12:05 07/09/24 14:01 07/09/24 12:05 07/09/24 14:01 07/09/24 12:05 07/09/24 12:00 07/09/24 12:05 Narrative Exam PE: Gen: Well-developed and well-nourished. Obese. HEENT: NCAT, EOMI, MMM, anicteric conjunctivae. CVS: normal S1 and S2. RRR. No M/R/G. Resp: CTA B/L. No rhonchi, rales, crackles or wheezing. Diminished due to body habitus. Abd: soft, non-distended. Bilateral lower quadrant tenderness. MSK: Good ROM in BUE & BLE. No rash. Trace edema. Bilateral knee abrasions. Right upper extremity fistula. Neuro: CN II-XII grossly intact. Strength 5/5 in left upper extremity. Strength 3/5 right upper extremity. Strength 2/5 bilateral lower extremity. Alert and oriented x2. Baseline for patient. Objective Labs 07/09/24 05:23 07/09/24 05:23 Labs: Laboratory Results - last 24 hr 07/08/24 07/08/24 07/08/24 15:36 15:41 17:40 WBC RBC Hgb Hct MCV MCH MCHC RDW Std Deviation Plt Count Neut % (Auto) Lymph % (Auto) Bull[place] % (Auto) Eos % (Auto) Baso % (Auto) Neut # (Auto) Lymph # (Auto) [place] # (Auto) Eos # (Auto) Baso # (Auto) Immature Gran # (Auto) Absolute Nucleated RBC Immature Gran % Nucleated RBC % Sodium Potassium Chloride Carbon Dioxide Anion Gap BUN Creatinine Estim Creat Clear Calc eGFR BUN/Creatinine Ratio Glucose Estimated Ave Glu mg/dL Hemoglobin A1c Calculated Osmolality Lactic Acid 1.0 Calcium Corrected Calcium Phosphorus Magnesium Total Bilirubin AST ALT Alkaline Phosphatase Total Protein Albumin Globulin Albumin/Globulin Ratio Random Vancomycin RSV Rapid Negative Group A Strep Rapid Negative 07/09/24 05:23 WBC 8.2 RBC 3.56 L Hgb 11.1 L Hct 34.4 L MCV 97 MCH 31.2 MCHC 32.3 RDW Std Deviation 48.6 H Plt Count 239 Neut % (Auto) 70 Lymph % (Auto) 18 [place] % (Auto) 9 Eos % (Auto) 2 Baso % (Auto) 1 Neut # (Auto) 5.8 Lymph # (Auto) 1.5 [place] # (Auto) 0.8 Eos # (Auto) 0.1 Baso # (Auto) 0.1 Immature Gran # (Auto) 0.03 H Absolute Nucleated RBC 0.00 Immature Gran % 0 Nucleated RBC % 0 Sodium 138 Potassium 5.3 H D Chloride 103 Carbon Dioxide 22.1 Anion Gap 13 BUN 60 H Creatinine 6.4 H* Estim Creat Clear Calc 11.6 L eGFR 7 L* BUN/Creatinine Ratio 9 L Glucose [address] Glu mg/dL 189 H Hemoglobin A1c 8.2 H Calculated Osmolality 292 Lactic Acid Calcium 8.4 Corrected Calcium 8.4 L Phosphorus 5.9 H Magnesium 2.2 Total Bilirubin 0.4 AST 14 ALT < 7 L Alkaline Phosphatase 83 Total Protein 8.0 Albumin 4.3 D Globulin 3.7 H Albumin/Globulin Ratio 1.2 Random Vancomycin 16.4 RSV Rapid Group A Strep Rapid Quality Measures Quality Measures VTE prophylaxis Assessment & Plan Assessment Current Active Medications: Generic Name Dose Route Start Last Admin Trade Name Freq PRN Reason Stop Dose Admin Acetaminophen 650 mg 07/08/24 17:17 07/08/24 18:06 Acetaminophen 325 Mg Tablet PO 08/07/24 17:16 650 mg Q6H PRN Administration Fever >100.4 or pain 1-3 Hydrocodone Bitart/Acetaminophen 1 tab 07/08/24 17:17 07/08/24 23:37 Hydrocodone/Apap 5/325 Tablet PO 07/13/24 17:16 1 tab Q4HR PRN Administration PAIN SCALE 4-10(Mod-Sev Dextrose 25 ml 07/08/24 17:29 Dextrose 50%-Water Inj 50 Ml Syringe IV 08/07/24 17:28 Q15MIN PRN BG 50-70 responsive npo pt Dextrose 50 ml 07/08/24 17:29 Dextrose 50%-Water Inj 50 Ml Syringe IV 08/07/24 17:28 Q15MIN PRN BG <50 OR BG <70 & pt unresponsive Glucagon 1 mg 07/08/24 17:29 Glucagon Inj 1 Mg Vial IM Q15MIN PRN BG <70, and no IV access Heparin Sodium (Porcine) 5,000 unit 07/08/24 21:00 07/09/24 09:17 Heparin Sod Inj 5000 Unit/Ml Vial SC 07/22/24 20:59 Not Given BID RONY Hydralazine HCl 100 mg 07/08/24 22:00 07/09/24 14:01 Hydralazine Hcl 25 Mg Tablet PO 08/07/24 21:59 100 mg TID RONY Administration Piperacillin/Tazobactam/Dextrose 3.375 gm in 50 mls @ 12.5 mls/hr 07/08/24 21:00 07/09/24 09:08 Zosyn IV 07/15/24 20:59 Not Given Q12HR [facility] [place] Protocol Insulin Glargine 10 unit 07/08/24 21:00 07/08/24 21:27 Insulin Glargine (Lantus) 5 Unit/0.05 Ml (Per 5 Units) SC 08/07/24 20:59 10 unit HS RONY Administration Insulin Human Lispro 0 unit 07/09/24 07:30 07/09/24 12:09 Insulin Lispro (Admelog) 1 Unit/0.01 Ml Unit SC 08/08/24 07:29 Not Given AC [facility] Protocol Levetiracetam 500 mg 07/08/24 21:00 07/09/24 09:18 Levetiracetam 250 Mg Tablet PO 08/07/24 20:59 Not Given BID RONY Levothyroxine Sodium 25 mcg 07/09/24 06:00 07/09/24 05:19 Levothyroxine Sodium 25 Mcg Tablet PO 08/08/24 05:59 25 mcg ACBR RONY Administration Ondansetron HCl 4 mg 07/08/24 17:17 Ondansetron Inj 2 Mg/Ml Inj 2 Ml IV 08/07/24 17:16 Q6H PRN NAUSEA OR VOMITING Protocol Pharmacy Consult 1 each 07/09/24 09:00 Vancomycin Pharmacy To Dose 1 Each Each IV 08/08/24 08:59 QDAY PRN PROTOCOL Pharmacy Consult 1 each 07/08/24 18:37 Pharmacy Renal Dose Adjustment 1 Ea XX 08/07/24 18:36 PRN PRN CONSULT Plan 54 y/o F with PMHx significant for CVA, hypertension, insulin-dependent diabetes, seizures, ESRD (//Sun) presents to ED from home with chief complaint of generalized bodyaches x 2 days status post fall, admitted for infection respiratory versus UTI. #Respiratory infection versus UTI, nonseptic #Status post ground-level fall Patient presented with chief complaint of generalized body pain following an unwitnessed current level fall without loss of consciousness or head injury. Patient stated she tripped over her feet but was able to stand without assistance. Over the next 2 days patient developed worsening generalized bodyaches, chills, cough, and bladder incontinence. Head CT showed stable encephalomalacia compared to previous CT, no acute bleed. Chest x-ray showed vascular congestion, potential superimposed infection of left lower lobe. Urinalysis pending. Blood cultures pending. Patient nonseptic, no leukocytosis, but febrile 101.4. CT abdomen/pelvis showed left base pneumonia, bladder wall thickening consistent with UTI, right hydronephrosis seen on previous imaging. -Follow-up urine and blood culture -Vancomycin pharmacy dosing (started 07/08) -Zosyn 3.375 g IV every 8 hours () -Tylenol as needed -Consider follow-up imaging of hydronephrosis once UTI resolved #Hypertensive urgency #Hypertension Patient has history of hypertension treated with outpatient medications. Patient presented with elevated blood pressure: 201/74. Patient denies headaches, visual changes. Troponin negative. -Monitor blood pressure -Goal of reduction less than or equal to 25% over 24 hours -Resume home meds: Hydralazine 100 mg p.o. 3 times daily #ESRD on dialysis #Volume overload Patient has history of ESRD, receives dialysis Sunday, , Sunday. Patient scheduled to see dialysis today, however physician to present to ED. Patient follows with collet driller Dr. Win who has been consulted. Patient has signs of volume overload with vascular congestion on chest x-ray, likely due to delay in scheduled dialysis. BNP elevated 692, above patient's baseline. -Avoid nephrotoxic medications -Renally dose meds -Dr. Win consulted, appreciate recommendation -Resume dialysis as per patient's regular schedule in hospital #Seizure disorder Patient has history of seizure disorder. -Resume home meds: Levetiracetam 500 mg p.o. twice daily -Seizure precautions #Diabetes, insulin-dependent Patient has history of insulin-dependent diabetes. A1c 8.2% as of 07/09/2024. -Insulin sliding scale -Lantus 10 units at bedtime #Hypothyroidism Patient history of hypothyroidism. -Resume home meds, levothyroxine 25 mcg p.o. daily DVT prophylaxis: Heparin GI prophylaxis: None Diet: Carb consistent low, renal Lines: Peripheral IV Code status: Full code Plan of care discussed with senior resident Dr. Farrell PGY?[address] Arias. Gagan Winston MD PGY?1 Attending Provider Attestation/Addendum I attest that I was physically present for the evaluation, physical examination, lab and imaging review of the patient with the residents. I discussed the case with the residents and agree with the findings and plans of care as documented above. Patient was seen during dialysis, tolerating dialysis well and appears to be comfortable. Continues to complain of generalized body ache but states that it has improved compared to yesterday. Has bilateral lower abdominal tenderness on palpation. Saturating well on room air. Continues to be on vancomycin and Zosyn for possible pneumonia versus UTI. Awaiting blood and urine cultures. CT abdomen/pelvis shows hydronephrosis, bladder wall thickening. Hydronephrosis noted on previous imaging as well, we will obtain follow-up imaging after her UTI has been resolved. Blood pressure improving after home antihypertensives. Continues to be on insulin regimen, antiepileptic, levothyroxine. Jocy Arias MD
[2024-07-09] MEDS: levETIRAcetam 250 MG TABLET 500 MG PO (21:25)
[2024-07-09] MEDS: HEPARIN SOD INJ 5000 UNIT/ML VIAL SC (21:26)
[2024-07-09] MEDS: INSULIN GLARGINE (Lantus) 5 UNIT/0.05 ML (PER 5 UNITS) 10 UNIT SC (21:27)
[2024-07-09] MEDS: PIPER/TAZO 3.375 GM PREMIX 3.375 GM/50 ML BAG IV (21:32)
[2024-07-10] VITALS (28 sets, daily range): BP systolic 129–181; BP diastolic 55–96; PULSE 59–70; RESP 16–18; TEMP 36.1–36.6; O2SAT 96–99
[2024-07-10] MEDS: LEVOTHYROXINE SODIUM 25 MCG TABLET PO (05:08)
[2024-07-10] MEDS: hydrALAZINE HCL 25 MG TABLET 100 MG PO ×3 (05:08→21:01)
[2024-07-10 05:55] LABS: Basophils % (Auto) 0 % (0-2.5); Eosinophils # (Auto) 0.1 Thou/mm3 (0.0-0.5); Eosinophils % (Auto) 2 % (0-10); Hematocrit 34.1 % (36.0-46.0); Immature Granulocytes % (Auto) 0 % (0-0); Immature Granulocytes Auto 0.02 Thou/mm3 (0.00-0.00); Lymphocytes # (Auto) 1.7 Thou/mm3 (1.0-4.8); Lymphocytes % (Auto) 33 % (10-50); Mean Corpuscular HGB Conc 32.3 g/dl (31.0-37.0); Mean Corpuscular Hemoglobin 31.3 pg (25.0-35.0); Mean Corpuscular Volume 97 fL (80-100); Monocytes # (Auto) 0.8 Thou/mm3 (0.0-0.8); Monocytes % (Auto) 15 % (0-12); Neutrophils # (Auto) 2.4 Thou/mm3 (1.8-7.7); Neutrophils % (Auto) 49 % (37-80); Nucleated Red Blood Cell % 0 /100 WBC (0); Platelet Count 228 Thou/mm3 (140-440); RDW Standard Deviation 47.7 fL (36.4-46.3); Red Blood Count 3.52 Miln/mm3 (4.00-5.20)
[2024-07-10 06:34] LABS: Alanine Aminotransferase < 7 U/L (10-49); Albumin, Serum 4.4 gm/dL (3.5-5.0); Albumin/Globulin Ratio 1.2 (1.2-2.2); Alkaline Phosphatase 73 U/L (46-116); Anion Gap 12 (7-16); Aspartate Amino Transferase 14 U/L (0-34); BUN/Creatinine Ratio 8 Ratio (12-20); Bilirubin,Total 0.4 mg/dL (0.3-1.2); Blood Urea Nitrogen 44 mg/dL (9-23); Calcium 9.4 mg/dL (8.3-10.6); Calcium (Corrected) 9.4 mg/dL (8.5-10.1); Carbon Dioxide 29.5 mMol/L (20.0-31.0); Chloride 98 mMol/L (98-107); Creatinine (Component) 5.3 mg/dL (0.6-1.3); Globulin 3.7 gm/dL (2.3-3.5); Glucose 90 mg/dL (74-106); Magnesium 2.2 mg/dL (1.6-2.6); Osmolality,Calculated 288 (275-295); Phosphorous 6.1 mg/dL (2.4-5.1); Potassium 4.9 mMol/L (3.4-5.1); Sodium 139 mMol/L (136-145); Total Protein 8.1 gm/dL (5.7-8.2); Vancomycin,Random 12.5 mcg/mL; eGFR 9 See Note
[2024-07-10] MEDS: HEPARIN SOD INJ 5000 UNIT/ML VIAL SC ×2 (08:32→21:04)
[2024-07-10] MEDS: PIPER/TAZO 3.375 GM PREMIX 3.375 GM/50 ML BAG IV ×2 (08:33→21:03)
[2024-07-10] MEDS: levETIRAcetam 250 MG TABLET 500 MG PO ×2 (08:33→21:01)
[2024-07-10 09:17] LABS: Collection Type, Urine Clean Catch
[2024-07-10 09:23] LABS: Bilirubin,Urine Negative (Negative); Blood,Urine Negative (Negative); Clarity,Urine Clear (Clear/Hazy); Color,Urine Lt-Yellow (Lt Yel-Yel); Glucose, Urine Negative (Negative); Ketones,Urine Negative (Negative); Leukocyte Esterase,Urine Negative (Negative); Nitrite,Urine Negative (Negative); PH,Urine 7.5 (5.0-7.0); Protein,Urine 2+ (Neg - Trace); RBC,Urine 1 /hpf (0-3); Specific Gravity,Urine 1.015 (1.001-1.035); Squamous Epithelial Cell,Urine 8 /hpf (0-5); Urobilinogen,Urine Negative mg/dL (0.0-1.0); WBC,Urine 1 /hpf (0-5)
--- NOTE | 2024-07-10 09:56 | XR_ITS ---
Examination: Retroperitoneal ultrasound, complete Technique: Multiple high resolution grayscale images of the retroperitoneum obtained, including kidneys and bladder. Exam date and time:July 10, 2024 at 11:27 AM Indications: CT examination July 08, 2024, moderate right hydronephrosis Findings: Right kidney 10.3 cm renal cortex 1.1 cm Left kidney 9.4 cm renal cortex 1.3 cm Moderate bilateral renal parenchymal scar formation. No hydronephrosis No bladder mass or bladder calculi. Bladder prevoid volume 51 cc impression: Moderate bilateral renal parenchymal scar formation No hydronephrosis
[2024-07-10 10:02] LABS: Amphetamine/Methamp Scrn,U Negative (Negative); Barbiturate Screen,Urine Negative (Negative); Benzodiazepines Screen,Urine Negative (Negative); THC Screen,Urine Negative (Negative)
[2024-07-10 10:03] LABS: Benzoylecgonine Screen, Ur Negative (Negative); Opiate Screen,Urine Negative (Negative)
[2024-07-10] MEDS: VANCOMYCIN/NS 1 GM IVPB 200 ML IV (10:28)
[2024-07-10] MEDS: CALCIUM ACETATE 667 MG TABLET PO (12:34)
--- NOTE | 2024-07-10 12:41 | PC.SS ---
SS met with patient who is alert/oriented. Patient was able to verify demographics. Patient states she resides alone. Admitted for generalized weakness. Patient states she recently fell at home. Patient worked with PT and they recommended a short stay at rehab. Patient confirmed rehab and prefers [facility]. Prior to hospitalization patient states she was independent with ADL's. She has a walker and wheelchair at home. No 02 at home. Patient's son, Ilya, assists her at home with any ADL's. He provides transportation assistance to all appointments. Patient states she recently fell at home. PCP: Radha Mane, EUGEN[place] @ [facility]. Last appt. was last week. Patient verbalized her alt medical decision maker: her son, Ilya. SS will submit inquiry and PASRR. alt medical decision maker: adam Caraballo, d/c plan: SNF short term
[2024-07-10] MEDS: MUPIROCIN OINT 2% 15 GM TUBE TOP ×2 (14:03→21:17)
[2024-07-10 15:00] LABS: Fentanyl Screen,Urine Negative (Negative)
--- NOTE | 2024-07-10 15:14 | ESPR_ITS ---
<Statement entered by Malinda Farrell MD - 07/10/24 15:38> I discussed with and supervised the international trade compliance manager physician who took care of this patient. I personally saw and examined the patient and discussed the assessment and plan with the entire medicine team, including my attending Dr. Arias, I agree with most of the assessment and plan as documented below Malinda Farrell M.D. PGY-2 Documentation for date of: 07/10/24 Subjective Subjective Interval history: No overnight events. Patient seen and examined at bedside, resting comfortably. Patient reports improvement in subjective symptoms. Body aches significant improved, although patient does endorse sore throat. Patient denies shortness of breath. Renal ultrasound showed no hydronephrosis, can follow-up outpatient. Continue antibiotics pending blood cultures. Exam Vital Signs Temp Pulse Resp BP Pulse Ox O2 Del Method O2 Flow Rate 96.9 F 66 18 134/70 H 96 Nasal Cannula 1 07/10/24 11:37 07/10/24 14:02 07/10/24 11:37 07/10/24 14:02 07/10/24 11:37 07/10/24 11:37 07/10/24 11:37 Narrative Exam PE: Gen: Well-developed and well-nourished. Obese. HEENT: NCAT, EOMI, MMM, anicteric conjunctivae. CVS: normal S1 and S2. RRR. No M/R/G. Resp: CTA B/L. No rhonchi, rales, crackles or wheezing. Diminished due to body habitus. Abd: soft, non-distended. Bilateral lower quadrant tenderness. MSK: Good ROM in BUE & BLE. No rash. Trace edema. Bilateral knee abrasions. Right upper extremity fistula. Neuro: CN II-XII grossly intact. Strength 5/5 in left upper extremity. Strength 3/5 right upper extremity. Strength 2/5 bilateral lower extremity. Alert and oriented x2. Baseline for patient. Objective Labs 07/10/24 05:16 07/10/24 05:16 Labs: Laboratory Results - last 24 hr 07/10/24 07/10/24 05:16 08:00 WBC 5.0 RBC 3.52 L Hgb 11.0 L Hct 34.1 L MCV 97 MCH 31.3 MCHC 32.3 RDW Std Deviation 47.7 H Plt Count 228 Neut % (Auto) 49 Lymph % (Auto) 33 [place] % (Auto) 15 H Eos % (Auto) 2 Baso % (Auto) 0 Neut # (Auto) 2.4 Lymph # (Auto) 1.7 [place] # (Auto) 0.8 Eos # (Auto) 0.1 Baso # (Auto) 0.0 Immature Gran # (Auto) 0.02 H Absolute Nucleated RBC 0.00 Immature Gran % 0 Nucleated RBC % 0 Sodium 139 Potassium 4.9 Chloride 98 Carbon Dioxide 29.5 Anion Gap 12 BUN 44 H Creatinine 5.3 H* D Estim Creat Clear Calc 14.0 L eGFR 9 L* BUN/Creatinine Ratio 8 L Glucose 90 Calculated Osmolality 288 Calcium 9.4 Corrected Calcium 9.4 Phosphorus 6.1 H Magnesium 2.2 Total Bilirubin 0.4 AST 14 ALT < 7 L Alkaline Phosphatase 73 Total Protein 8.1 Albumin 4.4 Globulin 3.7 H Albumin/Globulin Ratio 1.2 Ur Collection Type Clean Catch Urine Color Lt-Yellow Urine Clarity Clear Urine pH 7.5 H Ur Specific [place] 1.015 Urine Protein 2+ A Urine Glucose (UA) Negative Urine Ketones Negative Urine Blood Negative Urine Nitrite Negative Urine Bilirubin Negative Urine Urobilinogen (Auto) Negative Ur Leukocyte Esterase Negative Urine RBC 1 Urine WBC 1 Ur Squamous Epith Cells 8 H Urine Bacteria None Random Vancomycin 12.5 Urine Opiates Screen Negative Urine Fentanyl Screen Negative Ur Barbiturates Screen Negative U Amphetamin/Meth Scrn Negative U Benzodiazepines Scrn Negative U Cocaine Metab Screen Negative U Marijuana (THC) Screen Negative Quality Measures Quality Measures VTE prophylaxis Assessment & Plan Assessment Current Active Medications: Generic Name Dose Route Start Last Admin Trade Name Kadeemq PRN Reason Stop Dose Admin Acetaminophen 650 mg 07/08/24 17:17 07/08/24 18:06 Acetaminophen 325 Mg Tablet PO 08/07/24 17:16 650 mg Q6H PRN Administration Fever >100.4 or pain 1-3 Hydrocodone Bitart/Acetaminophen 1 tab 07/08/24 17:17 07/08/24 23:37 Hydrocodone/Apap 5/325 Tablet PO 07/13/24 17:16 1 tab Q4HR PRN Administration PAIN SCALE 4-10(Mod-Sev Calcium Acetate 667 mg 07/10/24 12:00 07/10/24 12:34 Calcium Acetate 667 Mg Tablet PO 08/09/24 11:59 667 mg TIDWM RONY Administration Dextrose 25 ml 07/08/24 17:29 Dextrose 50%-Water Inj 50 Ml Syringe IV 08/07/24 17:28 Q15MIN PRN BG 50-70 responsive npo pt Dextrose 50 ml 07/08/24 17:29 Dextrose 50%-Water Inj 50 Ml Syringe IV 08/07/24 17:28 Q15MIN PRN BG <50 OR BG <70 & pt unresponsive Glucagon 1 mg 07/08/24 17:29 Glucagon Inj 1 Mg Vial IM Q15MIN PRN BG <70, and no IV access Heparin Sodium (Porcine) 5,000 unit 07/08/24 21:00 07/10/24 08:32 Heparin Sod Inj 5000 Unit/Ml Vial SC 07/22/24 20:59 5,000 unit BID RONY Administration Hydralazine HCl 100 mg 07/08/24 22:00 07/10/24 14:02 Hydralazine Hcl 25 Mg Tablet PO 08/07/24 21:59 100 mg TID RONY Administration Piperacillin/Tazobactam/Dextrose 3.375 gm in 50 mls @ 12.5 mls/hr 07/08/24 21:00 07/10/24 08:33 Zosyn IV 07/15/24 20:59 12.5 mls/hr Q12HR RONY Administration Protocol Insulin Glargine 10 unit 07/08/24 21:00 07/09/24 21:27 Insulin Glargine (Lantus) 5 Unit/0.05 Ml (Per 5 Units) SC 08/07/24 20:59 10 unit HS RONY Administration Insulin Human Lispro 0 unit 07/09/24 07:30 07/10/24 12:17 Insulin Lispro (Admelog) 1 Unit/0.01 Ml Unit SC 08/08/24 07:29 Not Given AC RONY Protocol Levetiracetam 500 mg 07/08/24 21:00 07/10/24 08:33 Levetiracetam 250 Mg Tablet PO 08/07/24 20:59 500 mg BID RONY Administration Levothyroxine Sodium 25 mcg 07/09/24 06:00 07/10/24 05:08 Levothyroxine Sodium 25 Mcg Tablet PO 08/08/24 05:59 25 mcg ACBR RONY Administration Mupirocin 0 gm 07/10/24 14:00 07/10/24 14:03 Mupirocin Oint 2% 15 Gm Tube TOP 07/17/24 13:59 1 applicatio TID RONY Administration Ondansetron HCl 4 mg 07/08/24 17:17 Ondansetron Inj 2 Mg/Ml Inj 2 Ml IV 08/07/24 17:16 Q6H PRN NAUSEA OR VOMITING Protocol Pharmacy Consult 1 each 07/09/24 09:00 Vancomycin Pharmacy To Dose 1 Each Each IV 08/08/24 08:59 QDAY PRN PROTOCOL Pharmacy Consult 1 each 07/08/24 18:37 Pharmacy Renal Dose Adjustment 1 Ea XX 08/07/24 18:36 PRN PRN CONSULT Plan 54 y/o F with PMHx significant for CVA, hypertension, insulin-dependent diabetes, seizures, ESRD (T//Sun) presents to ED from home with chief complaint of generalized bodyaches x 2 days status post fall, admitted for infection respiratory versus UTI. #Respiratory infection versus UTI, nonseptic #Status post ground-level fall Patient presented with chief complaint of generalized body pain following an unwitnessed current level fall without loss of consciousness or head injury. Patient stated she tripped over her feet but was able to stand without assistance. Over the next 2 days patient developed worsening generalized bodyaches, chills, cough, and bladder incontinence. Head CT showed stable encephalomalacia compared to previous CT, no acute bleed. Chest x-ray showed vascular congestion, potential superimposed infection of left lower lobe. Urinalysis pending. Blood cultures pending. Patient nonseptic, no leukocytosis, but febrile 101.4. CT abdomen/pelvis showed left base pneumonia, bladder wall thickening consistent with UTI, right hydronephrosis seen on previous imaging. Blood cultures negative x 24 hours. Urinalysis negative, no urine culture done, however urine was taken after several days of antibiotics and is therefore unreliable. Bilateral renal ultrasound showed no hydronephrosis. -Follow-up blood culture -Vancomycin pharmacy dosing (started 07/08) -Zosyn 3.375 g IV every 8 hours () -Tylenol as needed #Hypertensive urgency, resolved #Hypertension Patient has history of hypertension treated with outpatient medications. Patient presented with elevated blood pressure: 201/74. Patient denies headaches, visual changes. Troponin negative. -Monitor blood pressure -Goal of reduction less than or equal to 25% over 24 hours -Resume home meds: Hydralazine 100 mg p.o. 3 times daily #ESRD on dialysis #Volume overload Patient has history of ESRD, receives dialysis Sunday, , Sunday. Patient scheduled to see dialysis today, however physician to present to ED. Patient follows with design maker Dr. Win who has been consulted. Patient has signs of volume overload with vascular congestion on chest x-ray, likely due to delay in scheduled dialysis. BNP elevated 692, above patient's baseline. -Avoid nephrotoxic medications -Renally dose meds -Dr. Win consulted, appreciate recommendation -Resume dialysis as per patient's regular schedule in hospital -Resume home calcium acetate #Seizure disorder Patient has history of seizure disorder. -Resume home meds: Levetiracetam 500 mg p.o. twice daily -Seizure precautions #Diabetes, insulin-dependent Patient has history of insulin-dependent diabetes. A1c 8.2% as of 07/09/2024. -Insulin sliding scale -Lantus 10 units at bedtime #Hypothyroidism Patient history of hypothyroidism. -Resume home meds, levothyroxine 25 mcg p.o. daily DVT prophylaxis: Heparin GI prophylaxis: None Diet: Carb consistent low, renal Lines: Peripheral IV Code status: Full code Plan of care discussed with senior resident Dr. Farrell PGY?[address] Arias. Gagan Winston MD PGY?1 Attending Provider Attestation/Addendum I attest that I was physically present for the evaluation, physical examination, lab and imaging review of the patient with the residents. I discussed the case with the residents and agree with the findings and plans of care as documented above. At bedside today, patient appears comfortable. States that her symptoms have been improving. Renal ultrasound was obtained which does not show any hydronephrosis. Continues to be on IV antibiotics for respiratory versus urinary infection. Awaiting culture results. Continues to be on insulin regimen for diabetes, Antiepileptics for seizure disorder. Nephrology following for ESRD, resumed her home calcium binder. Jocy Arias MD
[2024-07-10] MEDS: INSULIN GLARGINE (Lantus) 5 UNIT/0.05 ML (PER 5 UNITS) 10 UNIT SC (21:04)
[2024-07-11] VITALS (7 sets, daily range): BP systolic 124–168; BP diastolic 68–78; PULSE 63–67; RESP 18–20; TEMP 36.2–36.5; O2SAT 91–95
[2024-07-11] MEDS: hydrALAZINE HCL 25 MG TABLET 100 MG PO ×2 (05:10→13:46)
[2024-07-11] MEDS: MUPIROCIN OINT 2% 15 GM TUBE TOP ×2 (05:13→17:03)
[2024-07-11 05:59] LABS: Basophils % (Auto) 1 % (0-2.5); Eosinophils # (Auto) 0.2 Thou/mm3 (0.0-0.5); Eosinophils % (Auto) 3 % (0-10); Hematocrit 32.1 % (36.0-46.0); Hemoglobin 10.6 g/dL (12.0-16.0); Immature Granulocytes % (Auto) 0 % (0-0); Immature Granulocytes Auto 0.02 Thou/mm3 (0.00-0.00); Lymphocytes # (Auto) 1.4 Thou/mm3 (1.0-4.8); Lymphocytes % (Auto) 27 % (10-50); Mean Corpuscular Hemoglobin 31.1 pg (25.0-35.0); Mean Corpuscular Volume 94 fL (80-100); Monocytes # (Auto) 0.8 Thou/mm3 (0.0-0.8); Monocytes % (Auto) 16 % (0-12); Neutrophils # (Auto) 2.6 Thou/mm3 (1.8-7.7); Neutrophils % (Auto) 52 % (37-80); Nucleated Red Blood Cell % 0 /100 WBC (0); Platelet Count 225 Thou/mm3 (140-440); RDW Standard Deviation 46.4 fL (36.4-46.3); Red Blood Count 3.41 Miln/mm3 (4.00-5.20)
[2024-07-11] MEDS: LEVOTHYROXINE SODIUM 25 MCG TABLET PO (06:12)
[2024-07-11 06:50] LABS: Alanine Aminotransferase < 7 U/L (10-49); Albumin, Serum 4.2 gm/dL (3.5-5.0); Albumin/Globulin Ratio 1.2 (1.2-2.2); Alkaline Phosphatase 63 U/L (46-116); Anion Gap 14 (7-16); Aspartate Amino Transferase 10 U/L (0-34); BUN/Creatinine Ratio 8 Ratio (12-20); Bilirubin,Total 0.2 mg/dL (0.3-1.2); Blood Urea Nitrogen 33 mg/dL (9-23); Calcium 8.8 mg/dL (8.3-10.6); Calcium (Corrected) 8.8 mg/dL (8.5-10.1); Carbon Dioxide 27.5 mMol/L (20.0-31.0); Chloride 98 mMol/L (98-107); Creatinine (Component) 4.2 mg/dL (0.6-1.3); Estimated Creatinine Clearance 17.7 mL/min (>60); Globulin 3.6 gm/dL (2.3-3.5); Glucose 101 mg/dL (74-106); Magnesium 2.2 mg/dL (1.6-2.6); Osmolality,Calculated 284 (275-295); Phosphorous 4.7 mg/dL (2.4-5.1); Potassium 4.4 mMol/L (3.4-5.1); Sodium 139 mMol/L (136-145); Total Protein 7.8 gm/dL (5.7-8.2); eGFR 12 See Note
[2024-07-11] MEDS: CALCIUM ACETATE 667 MG TABLET PO ×2 (07:26→11:14)
--- NOTE | 2024-07-11 08:01 | PD.RESPRO ---
Documentation for date of: 07/11/24 Exam Vital Signs Temp Pulse Resp BP Pulse Ox O2 Del Method O2 Flow Rate 97.6 F 64 18 168/68 H 95 Room Air 1 07/11/24 07:28 07/11/24 07:28 07/11/24 07:28 07/11/24 07:28 07/11/24 07:28 07/11/24 07:28 07/10/24 15:57 Objective Labs 07/11/24 05:20 07/11/24 05:20 Labs: Laboratory Results - last 24 hr 07/10/24 07/11/24 08:00 05:20 WBC 5.0 RBC 3.41 L Hgb 10.6 L Hct 32.1 L MCV 94 MCH 31.1 MCHC 33.0 RDW Std Deviation 46.4 H Plt Count 225 Neut % (Auto) 52 Lymph % (Auto) 27 [place] % (Auto) 16 H Eos % (Auto) 3 Baso % (Auto) 1 Neut # (Auto) 2.6 Lymph # (Auto) 1.4 [place] # (Auto) 0.8 Eos # (Auto) 0.2 Baso # (Auto) 0.0 Immature Gran # (Auto) 0.02 H Absolute Nucleated RBC 0.00 Immature Gran % 0 Nucleated RBC % 0 Sodium 139 Potassium 4.4 D Chloride 98 Carbon Dioxide 27.5 Anion Gap 14 BUN 33 H Creatinine 4.2 H* D Estim Creat Clear Calc 17.7 L eGFR 12 L* BUN/Creatinine Ratio 8 L Glucose 101 Calculated Osmolality 284 Calcium 8.8 Corrected Calcium 8.8 Phosphorus 4.7 Magnesium 2.2 Total Bilirubin 0.2 L AST 10 ALT < 7 L Alkaline Phosphatase 63 Total Protein 7.8 Albumin 4.2 Globulin 3.6 H Albumin/Globulin Ratio 1.2 Ur Collection Type Clean Catch Urine Color Lt-Yellow Urine Clarity Clear Urine pH 7.5 H Ur Specific [place] 1.015 Urine Protein 2+ A Urine Glucose (UA) Negative Urine Ketones Negative Urine Blood Negative Urine Nitrite Negative Urine Bilirubin Negative Urine Urobilinogen (Auto) Negative Ur Leukocyte Esterase Negative Urine RBC 1 Urine WBC 1 Ur Squamous Epith Cells 8 H Urine Bacteria None Random Vancomycin 21.0 Urine Opiates Screen Negative Urine Fentanyl Screen Negative Ur Barbiturates Screen Negative U Amphetamin/Meth Scrn Negative U Benzodiazepines Scrn Negative U Cocaine Metab Screen Negative U Marijuana (THC) Screen Negative Quality Measures Quality Measures VTE prophylaxis Assessment & Plan Assessment Current Active Medications: Generic Name Dose Route Start Last Admin Trade Name Freq PRN Reason Stop Dose Admin Acetaminophen 650 mg 07/08/24 17:17 07/08/24 18:06 Acetaminophen 325 Mg Tablet PO 08/07/24 17:16 650 mg Q6H PRN Administration Fever >100.4 or pain 1-3 Hydrocodone Bitart/Acetaminophen 1 tab 07/08/24 17:17 07/08/24 23:37 Hydrocodone/Apap 5/325 Tablet PO 07/13/24 17:16 1 tab Q4HR PRN Administration PAIN SCALE 4-10(Mod-Sev Calcium Acetate 667 mg 07/10/24 12:00 07/11/24 07:26 Calcium Acetate 667 Mg Tablet PO 08/09/24 11:59 667 mg TIDWM RONY Administration Dextrose 25 ml 07/08/24 17:29 Dextrose 50%-Water Inj 50 Ml Syringe IV 08/07/24 17:28 Q15MIN PRN BG 50-70 responsive npo pt Dextrose 50 ml 07/08/24 17:29 Dextrose 50%-Water Inj 50 Ml Syringe IV 08/07/24 17:28 Q15MIN PRN BG <50 OR BG <70 & pt unresponsive Glucagon 1 mg 07/08/24 17:29 Glucagon Inj 1 Mg Vial IM Q15MIN PRN BG <70, and no IV access Heparin Sodium (Porcine) 5,000 unit 07/08/24 21:00 07/10/24 21:04 Heparin Sod Inj 5000 Unit/Ml Vial SC 07/22/24 20:59 5,000 unit BID RONY Administration Hydralazine HCl 100 mg 07/08/24 22:00 07/11/24 05:10 Hydralazine Hcl 25 Mg Tablet PO 08/07/24 21:59 100 mg TID RONY Administration Piperacillin/Tazobactam/Dextrose 3.375 gm in 50 mls @ 12.5 mls/hr 07/08/24 21:00 07/11/24 01:03 Zosyn IV 07/15/24 20:59 Infused Q12HR RONY Infusion Protocol Albumin Human 25 gm in 100 mls @ 100 mls/min 07/10/24 16:55 Albuminar-25 Ivpb IV PRN PRN DIALYSIS Insulin Glargine 10 unit 07/08/24 21:00 07/10/24 21:04 Insulin Glargine (Lantus) 5 Unit/0.05 Ml (Per 5 Units) SC 08/07/24 20:59 10 unit HS RONY Administration Insulin Human Lispro 0 unit 07/09/24 07:30 07/11/24 07:23 Insulin Lispro (Admelog) 1 Unit/0.01 Ml Unit SC 08/08/24 07:29 Not Given AC [facility] Protocol Levetiracetam 500 mg 07/08/24 21:00 07/10/24 21:01 Levetiracetam 250 Mg Tablet PO 08/07/24 20:59 500 mg BID RONY Administration Levothyroxine Sodium 25 mcg 07/09/24 06:00 07/11/24 06:12 Levothyroxine Sodium 25 Mcg Tablet PO 08/08/24 05:59 25 mcg ACBR RONY Administration Mupirocin 0 gm 07/10/24 14:00 07/11/24 05:13 Mupirocin Oint 2% 15 Gm Tube TOP 07/17/24 13:59 1 applicatio TID RONY Administration Ondansetron HCl 4 mg 07/08/24 17:17 Ondansetron Inj 2 Mg/Ml Inj 2 Ml IV 08/07/24 17:16 Q6H PRN NAUSEA OR VOMITING Protocol Pharmacy Consult 1 each 07/09/24 09:00 Vancomycin Pharmacy To Dose 1 Each Each IV 08/08/24 08:59 QDAY PRN PROTOCOL Pharmacy Consult 1 each 07/08/24 18:37 Pharmacy Renal Dose Adjustment 1 Ea XX 08/07/24 18:36 PRN PRN CONSULT
[2024-07-11] MEDS: PIPER/TAZO 3.375 GM PREMIX 3.375 GM/50 ML BAG IV (08:36)
[2024-07-11] MEDS: HEPARIN SOD INJ 5000 UNIT/ML VIAL SC (08:38)
[2024-07-11] MEDS: levETIRAcetam 250 MG TABLET 500 MG PO (08:38)
--- NOTE | 2024-07-11 09:08 | PC.SS ---
Follow up note: Patient was accepted at [facility]. Physician will be putting in d/c orders for today. SS contacted [facility] to close case for level 2. Pending closure. Patient will d/c today to facility.
--- NOTE | 2024-07-11 14:28 | PC.NURSE ---
GAVE REPORT TO KAIT AT [facility]
--- NOTE | 2024-07-11 14:34 | ESDS_ITS ---
Planned Discharge Date 07/11/24 DS: Providers Provider Date of admission: 07/08/24 17:17 Primary care physician: Radha Mane PA-C Admitting Provider: Fatmata Rodriguez DO Attending Provider on Admission: Jocy Arias MD Consults: 07/08/24 17:17 Referral Physical Therapy Routine Comment: Physician Instructions: 07/08/24 17:29 Consult to Nephrology Stat Comment: Consulting Provider: Quentin Win 07/08/24 23:45 [facility] Referral - Knowledge Deficit Routine Comment: Positive screening for knowledge deficit needs. Attending Provider on DC: Lolis Pugh MD Discharging Provider: Lolis Pugh MD DS: Diagnosis Problem List Completed Was Problem List Reviewed/Reconciled?: Yes Hospital Course Hospital Course Hospital course: 54-year-old woman with past medical history of CVA, hypertension, diabetes mellitus type 2 insulin-dependent, seizure disorder, end-stage renal disease on hemodialysis who came to the ED on 07/08/2024 due to generalized weakness associated to suprapubic pain, dysuria as well as cough fever and chills. she came to the ED after sustaining a fall. At the ED patient was found to have hypertensive urgency with blood pressure around the 195/73, febrile, flu RSV and COVID and strep were negative, cervical spine CT was negative, CT head shows stable encephalomalacia of the left side without any acute bleed, chest x-ray showed vascular congestion and possible superimposed left lobe pneumonia, CT abdomen pelvis showed left base pneumonia, bladder wall thickening consistent with UTI and The patient was admitted for further treatment and management of community-acquired pneumonia vs UTI and hypertensive urgency. Nephrology was consulted for resuming patient scheduled hemodialysis due to patient presented fluid overload, was started on broad-spectrum antibiotics IV Zosyn and vancomycin. During hospital stay hemodialysis schedule was resumed, blood pressure improved and home medications were resumed, blood and urine cultures were negative, patient remained afebrile and symptoms resolved. Today patient stated is feeling well denied any acute complaints at this moment, tolerating p.o. for which patient is going to be discharged to SNF. Patient will be discharged to SNF with: ? Amoxicillin/clavulanate 1 tablet p.o. twice daily for 3 more days ? Continue home medications #Respiratory infection vs UTI resolved #Status post ground-level fall #Hypertensive urgency resolved #History of hypertension #ESRD on dialysis #Volume overload resolved #History of seizure disorder #Diabetes mellitus type 2 insulin-dependent #Hypothyroidism Patient discussed with my attending Dr Hugo Pugh MD PGY-3 Disclaimer: Despite multiple revisions, due to the dictation software being used, the document bellow may not be free of grammatical errors including phonetic/typographic errors. However, this does not deter from our commitment to providing health care in the patient's best interest in mind. Time Spent with Patient Time attestation: Total time spent providing and/or coordinating discharge services: Time spent: Greater than 30 minutes Exam Vital Signs Temp Pulse Resp BP Pulse Ox O2 Del Method O2 Flow Rate 97.3 F 65 19 124/78 95 Room Air 1 07/11/24 12:00 07/11/24 13:46 07/11/24 12:00 07/11/24 13:46 07/11/24 12:00 07/11/24 12:00 07/10/24 15:57 Narrative Exam General: No acute distress, well appearing, alert, interactive. HEENT: NC/AT, PERRL, EOMI, Good conjugate gaze, moist mucous membranes, oropharynx clear. Neck: Supple, No masses, No adenopathy, carotid pulse 2+ bilaterally without bruits, No JVD, normal range of motion. Chest: Symmetrical, atraumatic, and with equal expansion , Nontender on palpation no deformity and no crepitus. CVS: S1 and S2 present, Regular rate and rhythm, No murmurs, rubs or gallops perceived during auscultation. Lungs: Normal respiratory effort, CTAB, no wheezing, rhonchi or rales perceived during auscultation, No intercostal or subcostal retraction. Abdomen : Soft, no tenderness to palpation, no guarding ,no rebound, +BS, no organomegaly. Extremities: Right upper extremity fistula, no edema, warm well perfused, normal tone and ROM, strength and sensation intact, cap refill less than 2, +2 dp equal bilaterally, able to move all 4 extremities spontaneously. Skin: Intact, no rashes, no lesions, no erythema or jaundice noted Neuro: AOx4, no focal neurologic deficits noted, GCS 15 Psych: Appropriate mood and affect. Discharge Plan Plan Patient Disposition: Xfer Skilled Nsg Fac (SNF) Patient condition on transfer: Stable Care Plan Goals: All questions were answered and recommendation were given to come to the ED at any time if she is not feeling well Patient will need to follow-up with PCP in 5 to 7 days after discharge Patient will be discharged to SNF with: ? Augmentin 875-125 mg 1 tablet p.o. twice daily for 3 more days ? Continue home medications Prescriptions/Referrals Prescriptions/Med Rec: New amoxicillin-pot clavulanate 875-125 mg tablet 1 tab PO BID 3 Days Qty: 6 0RF levothyroxine 25 mcg Tablet 25 mcg PO ACBR Qty: 30 0RF Continued calcium acetate(phosphat bind) 667 mg capsule 667 mg PO TID Patient Comments: TAKE ONE CAPSULE BY MOUTH THREE TIMES DAILY Rx Instructions: with meals sertraline 50 mg Tablet 50 mg PO QDAY allopurinol 300 mg Tablet 300 mg PO QDAY folic acid 1 mg Tablet 1 mg PO QDAY levetiracetam 500 mg Tablet 500 mg PO BID insulin glargine [Lantus Solostar U-100 Insulin] 100 unit/mL (3 mL) insulin pen 10 unit SUBCUT QPM Qty: 15 0RF Patient Comments: INJECT 90 UNITS SUBCUTANEOUSLY TWICE DAILY hydralazine 100 mg tablet 100 mg PO TID Qty: 90 0RF lisinopril 40 mg Tablet 40 mg PO BID Qty: 60 0RF Held nifedipine 90 mg tablet extended release 24hr 90 mg PO QDAY Hold Instructions: until follow up with pcp Discontinued levothyroxine 50 mcg tablet 1 tab PO QDAY Patient Comments: TAKE ONE TABLET BY MOUTH EVERY MORNING 30 minutes BEFORE BREAKFAST Referrals: Radha Mane PA-C [Primary Care Provider] - Patient/Caregiver Discharge Instructions Meds to Beds: No Discharge Activity: activity as tolerated Print Language: Korean Stand Alone Forms: Latonya Award Info., Patient Portal Info Letter Discharge Order Discharge Orders: Discharge (Routine); Ordered 07/11/24 Ordered By: Lolis Pugh Quality Discharge Quality Measures VTE prophylaxis Attestestation MD Attestation I attest that I was physically present for the evaluation, physical examination, lab and imaging review of the patient with the residents. I discussed the case with the residents and agree with the findings and plans of care as documented above. At bedside today, patient states she is feeling much better, denies any new complaints.? Vital signs have been stable.? Lab results have been stable as well.? Blood cultures have been negative for more than 48 hours.? We will discharge patient on oral Augmentin to cover both possible pneumonia and UTI. Jocy Arias MD
== END 2024-07-11 17:19 | disposition skilled nursing facility (03) | DRG 193 ==
LOC: SERX 15:56 → SERHOLD 17:36 → S3NX 20:30
PROVIDERS: Nurse Practitioner Family; Admitting Provider Internal Medicine; Emergency Provider Emergency Medicine; PCP Physician Assistant; Visit Provider Student in an Organized Health Care Education/Training Program
DX: J18.9 Pneumonia, unspecified organism (principal); N18.6 End stage renal disease; N39.0 Urinary tract infection, site not specified; I12.0 Hypertensive chronic kidney disease with stage 5 chronic kidney disease or end stage renal disease; Z68.41 Body mass index [BMI] 40.0-44.9, adult; E11.22 Type 2 diabetes mellitus with diabetic chronic kidney disease; I16.0 Hypertensive urgency; E87.70 Fluid overload, unspecified; G40.909 Epilepsy, unspecified, not intractable, without status epilepticus; E03.9 Hypothyroidism, unspecified; G93.89 Other specified disorders of brain; M25.552 Pain in left hip; Z86.73 Personal history of transient ischemic attack (TIA), and cerebral infarction without residual deficits; Z99.2 Dependence on renal dialysis; E66.9 Obesity, unspecified; Z60.2 Problems related to living alone; S80.212A Abrasion, left knee, initial encounter; S80.211A Abrasion, right knee, initial encounter; Z23 Encounter for immunization; Z79.4 Long term (current) use of insulin; Z79.899 Other long term (current) drug therapy; W01.0XXA Fall on same level from slipping, tripping and stumbling without subsequent striking against object, initial encounter; Y92.000 Kitchen of unspecified non-institutional (private) residence as the place of occurrence of the external cause
CPT/HCPCS: 36415; 70450; 71046; 72125; 74176; 76770; 80053; 80202; 80307; 81001; 83036; 83605; 83735; 83880; 84100; 84484; 85025; 85610; 85730; 87040; 87081; 87400; 87634; 87651; 87811; 90471; 90715; 93005; 93225; 96365; 97162; 99285; J1643; J1815; J2543; J3370; A9270

== ENCOUNTER 2024-08-25 23:25 | Emergency (ER) | payer MEDICARE, MEDICAID, SELFPAY ==
[2024-08-25 23:31] VITALS: PULSE 87; RESP 22; O2SAT 97
[2024-08-25 23:43] VITALS: BP 151/72; PULSE 90; RESP 28; TEMP 37.1; O2SAT 100
--- NOTE | 2024-08-25 23:49 | XR_ITS ---
Examination: CT brain head without contrast. 2-D sagittal coronal reconstructions Date and time of exam:August 26, 2024 1213 hours INDICATIONS: Dizziness nausea vomiting beginning 2 days ago CTDI: vol (mGy):56.3 DLP: (mGycm):1074 Technique: Multiple CT axial sections of the brain have been obtained, 5 mm slice thickness. Contrast has not been administered. 2-D sagittal, coronal reconstructions have been obtained Low dose protocols were performed. One or more of the following dose reduction techniques were used; automated exposure control, adjustment of the mA and/or KV according to patient size, use of iterative reconstruction technique. Findings: No significant ventricular enlargement. Large area encephalomalacia left parietal lobe left middle cerebral artery distribution Intra-axial or extra-axial hemorrhage density is not seen. No mass effect or midline shift Basal cisterns are not remarkable. Fourth ventricle is midline. Cranial vault intact. Impression: Negative for acute hemorrhage, mass effect or midline shift If symptoms persist, consider brain MRI follow-up
--- NOTE | 2024-08-25 23:49 | EKG_ITS ---
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1970 Requested By: Salvador Higgins Order Number: [id number] Reading MD: Salvador Higgins Measurements Intervals Fields Rate: 86 P: 59 IA: 175 QRS: -45 QRSD: 87 T: 40 QT: 434 QTc: 520 Interpretive Statements SINUS RHYTHM LEFT ANTERIOR FASCICULAR BLOCK [QRS AXIS <= -45, QR IN I, RS IN II] POSSIBLE ANTERIOR MYOCARDIAL INFARCTION , OF INDETERMINATE AGE [30 ms Q WAVE IN V3/V4, OR R < 0.2 mV IN V4] MODERATE T-WAVE ABNORMALITY, CONSIDER LATERAL ISCHEMIA [-0.1+ mV T-WAVE IN I/aVL/V5/V6] MODERATE T-WAVE ABNORMALITY, CONSIDER INFERIOR ISCHEMIA [-0.1+ mV T-WAVE IN II/aVF] Compared to ECG 07/08/2024 10:18:20 T-wave abnormality now present Possible ischemia now present Myocardial infarct finding still present /store/S0/[id number]
--- NOTE | 2024-08-25 23:49 | EDRME_ITS ---
Rapid Medical Screening Exam E Arrival date/time: 08/25/24 23:25 Chief Complaint: Dizziness Vital signs: Vital Signs Temperature 98.8 F 08/25/24 23:43 Pulse Rate 90 08/25/24 23:43 Respiratory Rate 28 H 08/25/24 23:43 Blood Pressure 151/72 H 08/25/24 23:43 Pulse Oximetry (%) 100 08/25/24 23:43 Oxygen Delivery Method Room Air 08/25/24 23:43 [facility] Narrative: Nausea/vomiting since yesterday, dizziness started this morning
[2024-08-26] MEDS: LORazepam 2 MG/ML VIAL 1 MG IVP (00:47)
[2024-08-26] MEDS: ONDANSETRON INJ 2 MG/ML INJ 2 ML 4 MG IV (00:47)
--- NOTE | 2024-08-26 00:50 | PD.EDDIZZY ---
ED Dizzyness RME/HPI General Chief Complaint: Dizziness Stated Complaint: DIZZINESS Time Seen by Provider: 08/26/24 00:55 Arrival date/time: 08/25/24 23:25 RME / HPI RME / HPI Narrative: Nausea/vomiting since yesterday, dizziness started this morning --------- Dr. Ruelas's Main ED Evaluation: 54yo female with a history of CVA, ESRD on HD T//Sun, HTN, DM BIBA from home presents to the ED for complaints of nausea and dizziness. Patient states she's currently on ear drops for a right ear infection. Patient states she is unable to hear out of her right ear. Patient reports associated dizziness, headache, and nausea. Patient denies any fever, chills, neck pain or any other associated symptoms. No known allergies. Related Data Home Medications ?Medication ?Instructions ?Recorded ?Confirmed sertraline 50 mg tablet 50 mg PO QDAY 10/01/18 12/19/21 allopurinol 300 mg tablet 300 mg PO QDAY 01/01/20 12/19/21 folic acid 1 mg tablet 1 mg PO QDAY 09/22/20 12/19/21 calcium acetate(phosphat bind) 667 667 mg PO TID 01/12/21 12/19/21 mg capsule nifedipine 90 mg tablet,extended 90 mg PO QDAY 01/12/21 12/19/21 release 24 hr Held on 07/11/24. Instructions: until follow up with pcp levetiracetam 500 mg tablet 500 mg PO BID 10/31/21 12/19/21 Previous Rx's ?Medication ?Instructions ?Recorded hydralazine 100 mg tablet 100 mg PO TID #90 tabs 03/17/23 insulin glargine 100 unit/mL (3 10 unit (0.1 mL) subcut QPM #15 mL 03/17/23 mL) subcutaneous pen (Lantus Solostar U-100 Insulin) lisinopril 40 mg tablet 40 mg PO BID #60 tabs 03/17/23 levothyroxine 25 mcg tablet 25 mcg PO ACBR #30 tabs 07/11/24 amoxicillin 875 mg-potassium 1 tab PO BID #20 tabs 08/26/24 clavulanate 125 mg tablet Allergies Allergy/AdvReac Type Severity Reaction Status Date / Time No Known Allergies Allergy Verified 08/25/24 23:31 Review of Systems Review of Systems Systems Reviewed: All systems reviewed, normal except as documented ED Exam Narrative Physical exam: General: Non-toxic, well appearing, hyperventilating, in no acute distress, and appears stated age and well developed and well nourished. Vital signs: Normal. Head: Normocephalic and atraumatic. Eyes: Aproptotic, extraocular movements intact. Ears: Right otitis media and externa. Nose: Nares without evidence of rhinorrhea. Neck: Supple without menigismus without lympadenopathy. Heart: Regular rate and rhythm without murmur, gallops, or rubs. Lungs: Clear to auscultation without wheezing, rales, or rhonchi. Abdomen: Soft, non distended. No tenderness. Normal bowel sounds. Negative Louis sign and no McBurney?s point tenderness. No guarding, rebound, or rovsing. Back: No costovertebral angle tenderness. Neurological: Alert and oriented to person, place, time. Baseline right-sided weakness. Extremities: no cyanosis or edema. Right AV fistula with a good thrill. Skin: no rashes, ecchymosis, or lesions. Course Quality Measures none Orders Category Date Time Status EKG (ED ONLY) *Do not use* NOW Care 08/25/24 23:[address] head/brain wo con Stat Exams 08/25/24 23:49 Taken EKG (ED Only) Stat Exams 08/25/24 23:49 Draft CBC Stat Lab 08/25/24 00:40 Completed CMP [Comprehensive Metabolic Panel] Stat Lab 08/25/24 00:40 Completed Lipase Stat Lab 08/25/24 00:40 Completed Troponin I Stat Lab 08/25/24 00:40 Completed Amoxicillin/Pot Clav 875 [Augmentin 875] Med 08/26/24 04:00 Discontinued 1 tab PO X1 ONE LORazepam [Ativan Inj] Med 08/26/24 00:41 Discontinued 1 mg IVP X1 ONE Meclizine HCl [Antivert] Med 08/25/24 23:50 Discontinued 25 mg PO X1 ONE Ondansetron Inj [Zofran Inj] Med 08/26/24 00:41 Discontinued 4 mg IV X1 ONE Ondansetron Odt [Zofran Odt] Med 08/25/24 23:50 Discontinued 4 mg PO X1 ONE Vital Signs Vital signs: Vital Signs Temperature 98.8 F 08/25/24 23:43 Pulse Rate 90 08/25/24 23:43 Respiratory Rate 28 H 08/25/24 23:43 Blood Pressure 151/72 H 08/25/24 23:43 Pulse Oximetry (%) 100 08/25/24 23:43 Oxygen Delivery Method Room Air 08/25/24 23:43 Dizziness MDM Narrative MDM Narrative:: Scribe Attestation: 08/26/24 - Christi Sen am scribing for and in the presence of Dr. Ruelas. Patient data External records reviewed:: [facility] previous records (Per chart review, patient was admitted here on 07/08/24 for fever and fluid overload.) Clinical information provided by:: patient Social determinants that could affect healthcare access:: none Patient has the following chronic illnesses:: CVA, ESRD on HD T/Th/Sat, HTN, DM How is presenting disease/condition affected by chronic disease/condition?: uneffected by Evaluation data The following diagnostics were reviewed and interpreted by me:: lab results, radiology exam(s) and EKG tracing(s) Lab and/or radiology exams considered but not ordered:: none Interpretation Summary: WBC count is normal, Potassium is 3.3, Creatinine is elevated at 6.7 (which is chronic), Troponin is normal, Lipase is normal, according to my interpretation. EKG done at 2354, NSR, rate of 86, nonspecific ST-T wave changes in lead II, LVH, poor R wave progression, similar to previous EKG on 07/14/24, according to my interpretation. Teler[employer] Preliminary Report Draft Patient: YAYA CABRERA [facility]. Record#: [id number] Birthdate: 1970 Age/Sex: 54 / F Location: [facility] Attending Dr: Ordering Physician: Date of Service: Procedure(s): Accession Number(s): cc: ~ CT scan of the head without intravenous contrast (axial sections with sagittal and coronal reformats). August 26, 2024 at 0013 hours Clinical History: Dizzy. Comparison: CT head dated July 08, 2024. Findings: No evidence of intracranial hemorrhage, mass effect or midline shift. Again seen is stable large area of encephalomalacia in the left posterior temporal occipital lobe. The ventricles and CSF spaces are unremarkable. The calvarium is unremarkable. There is mild volume loss. The mastoid air cells and the visualized paranasal sinuses are clear. Impression: No evidence of intracranial hemorrhage, mass effect or midline shift. Report Electronically Signed By: Albino Wolf 08/26/2024 1:06:27 AM [EST] Medications / Prescriptions Medications or Prescriptions considered but not ordered:: none Medication administrations:: Medication Administration History Discontinued Medications Amoxicillin/Clavulanate Potassium (Amoxicillin/Pot Clav 875 Tablet) 1 tab PO X1 ONE Stop: 08/26/24 04:01 Last Admin: 08/26/24 04:21 Dose: 1 tab Documented By: DAE Lorazepam (Lorazepam 2 Mg/Ml Vial) 1 mg IVP X1 ONE Stop: 08/26/24 00:42 Last Admin: 08/26/24 00:47 Dose: 1 mg Documented By: HAFSA Meclizine HCl (Meclizine Hcl 25 Mg Tablet) 25 mg PO X1 ONE Stop: 08/25/24 23:51 Last Admin: 08/26/24 00:47 Dose: Not Given Documented By: HAFSA Non-Admin Reason: Cancelled by Provider Ondansetron HCl (Ondansetron Odt 4 Mg Tabrap) 4 mg PO X1 ONE; Protocol Stop: 08/25/24 23:51 Last Admin: 08/26/24 00:47 Dose: Not Given Documented By: HAFSA Non-Admin Reason: Cancelled by Provider Ondansetron HCl (Ondansetron Inj 2 Mg/Ml Inj 2 Ml) 4 mg IV X1 ONE; Protocol Stop: 08/26/24 00:42 Last Admin: 08/26/24 00:47 Dose: 4 mg Documented By: HAFSA see above Consultations Consultation(s) initiated? (list below): No Diagnosis Dizziness Differential Diagnosis: other (otitis media, otitis externa, malignant otitis externa, cellulitis, sinusitis) Most likely diagnosis given after review of the tests above:: see clinical impression below Admission Indicated Admission indicated?: not indicated Admission Request Was there a request for admission?: No Disposition Plan Disposition Plan: Discharge Discharge Attestation Discharge Attestation: The patient and all family members were given an opportunity to ask questions and understood the discharge instructions. Discharge instructions specifically effects, indications for sooner follow up or return to the emergency department, and the expected course of current diagnosis. Patient condition: Stable Discharge Plan Plan Patient Disposition: HOME (Self Care) Patient condition on transfer: Stable Prescriptions/Referrals Prescriptions/Med Rec: New amoxicillin-pot clavulanate 875-125 mg tablet 1 tab PO BID Qty: 20 0RF No Action nifedipine 90 mg tablet extended release 24hr 90 mg PO QDAY calcium acetate(phosphat bind) 667 mg capsule 667 mg PO TID Patient Comments: TAKE ONE CAPSULE BY MOUTH THREE TIMES DAILY Rx Instructions: with meals sertraline 50 mg Tablet 50 mg PO QDAY allopurinol 300 mg Tablet 300 mg PO QDAY folic acid 1 mg Tablet 1 mg PO QDAY levetiracetam 500 mg Tablet 500 mg PO BID insulin glargine [Lantus Solostar U-100 Insulin] 100 unit/mL (3 mL) insulin pen 10 unit SUBCUT QPM Qty: 15 0RF Patient Comments: INJECT 90 UNITS SUBCUTANEOUSLY TWICE DAILY hydralazine 100 mg tablet 100 mg PO TID Qty: 90 0RF lisinopril 40 mg Tablet 40 mg PO BID Qty: 60 0RF levothyroxine 25 mcg Tablet 25 mcg PO ACBR Qty: 30 0RF Referrals: Radha Mane PA-C [Primary Care Provider] - In 1 week Problem List Clinical Impression: Otitis media, Otitis externa Patient/Caregiver Discharge Instructions Additional Instructions: Continue using your ear drops as prescribed at home. Take your antibiotics as prescribed. Follow-up with your primary care provider in 48 hours for a recheck. Return to the ED for any worsening symptoms or as needed. Print Language: Macanese Stand Alone Forms: [employer] Info., Patient Portal Info Letter
[2024-08-26 01:02] LABS: Basophils % (Auto) 0 % (0-2.5); Eosinophils # (Auto) 0.2 Thou/mm3 (0.0-0.5); Eosinophils % (Auto) 2 % (0-10); Hematocrit 27.9 % (36.0-46.0); Hemoglobin 9.6 g/dL (12.0-16.0); Immature Granulocytes % (Auto) 0 % (0-0); Immature Granulocytes Auto 0.03 Thou/mm3 (0.00-0.00); Lymphocytes # (Auto) 3.5 Thou/mm3 (1.0-4.8); Lymphocytes % (Auto) 38 % (10-50); Mean Corpuscular HGB Conc 34.4 g/dl (31.0-37.0); Mean Corpuscular Hemoglobin 33.1 pg (25.0-35.0); Mean Corpuscular Volume 96 fL (80-100); Monocytes # (Auto) 0.8 Thou/mm3 (0.0-0.8); Monocytes % (Auto) 9 % (0-12); Neutrophils # (Auto) 4.7 Thou/mm3 (1.8-7.7); Neutrophils % (Auto) 51 % (37-80); Nucleated Red Blood Cell % 0 /100 WBC (0); Platelet Count 250 Thou/mm3 (140-440); RDW Standard Deviation 51.9 fL (36.4-46.3); White Blood Count 9.3 Thou/mm3 (3.6-11.0)
--- NOTE | 2024-08-26 01:06 | PRELIM_ITS ---
CT scan of the head without intravenous contrast (axial sections with sagittal and coronal reformats). August 26, 2024 at 0013 hours Clinical History: Dizzy. Comparison: CT head dated July 08, 2024. Findings: No evidence of intracranial hemorrhage, mass effect or midline shift. Again seen is stable large area of encephalomalacia in the left posterior temporal occipital lobe. The ventricles and CSF spaces are unremarkable. The calvarium is unremarkable. There is mild volume loss. The mastoid air cells and the visualized paranasal sinuses are clear. Impression: No evidence of intracranial hemorrhage, mass effect or midline shift. Report Electronically Signed By: Albino Wolf 08/26/2024 1:06:27 AM [EST]
[2024-08-26 01:13] LABS: Alanine Aminotransferase 10 U/L (10-49); Albumin, Serum 4.5 gm/dL (3.5-5.0); Albumin/Globulin Ratio 1.2 (1.2-2.2); Alkaline Phosphatase 63 U/L (46-116); Anion Gap 18 (7-16); Aspartate Amino Transferase 17 U/L (0-34); BUN/Creatinine Ratio 6 Ratio (12-20); Bilirubin,Total 0.2 mg/dL (0.3-1.2); Blood Urea Nitrogen 41 mg/dL (9-23); Calcium 8.2 mg/dL (8.3-10.6); Calcium (Corrected) 8.2 mg/dL (8.5-10.1); Carbon Dioxide 24.7 mMol/L (20.0-31.0); Chloride 92 mMol/L (98-107); Creatinine (Component) 6.7 mg/dL (0.6-1.3); Globulin 3.7 gm/dL (2.3-3.5); Glucose 164 mg/dL (74-106); Lipase 34 U/L (12-53); Osmolality,Calculated 284 (275-295); Potassium 3.3 mMol/L (3.4-5.1); Sodium 135 mMol/L (136-145); Total Protein 8.2 gm/dL (5.7-8.2); Troponin I < 0.020 ng/mL (0.0-0.045); eGFR 7 See Note
[2024-08-26 03:34] VITALS: BP 92/47; PULSE 85; RESP 19; TEMP 36.8; O2SAT 99
[2024-08-26] MEDS: AMOXICILLIN/POT CLAV 875 TABLET 1 TAB PO (04:21)
[2024-08-26 04:29] VITALS: BP 102/44; PULSE 85; RESP 18; TEMP 36.6; O2SAT 99
== END 2024-08-26 04:32 | disposition home or self-care (01) ==
PROVIDERS: Physician Assistant; Emergency Provider Emergency Medicine; PCP Physician Assistant
DX: H66.91 Otitis media, unspecified, right ear (principal); H60.91 Unspecified otitis externa, right ear; R42 Dizziness and giddiness; R11.2 Nausea with vomiting, unspecified; I44.4 Left anterior fascicular block; I12.0 Hypertensive chronic kidney disease with stage 5 chronic kidney disease or end stage renal disease; E11.22 Type 2 diabetes mellitus with diabetic chronic kidney disease; N18.6 End stage renal disease; Z99.2 Dependence on renal dialysis; Z86.73 Personal history of transient ischemic attack (TIA), and cerebral infarction without residual deficits; Z79.4 Long term (current) use of insulin
CPT/HCPCS: 36415; 70450; 80053; 81001; 83690; 84484; 85025; 93005; 96374; 96375; 99284; J2060; J2405; A9270

== ENCOUNTER 2024-08-26 13:43 | Emergency (ER) | payer MEDICARE, MEDICAID, SELFPAY ==
[2024-08-26 13:50] VITALS: BP 152/75; PULSE 71; RESP 19; TEMP 36.9; O2SAT 98
[2024-08-26 14:08] VITALS: PULSE 80; O2SAT 98
[2024-08-26 14:14] VITALS: BMI 38.4
--- NOTE | 2024-08-26 14:19 | EKG_ITS ---
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: : 1970 Requested By: Damian Hernandez Order Number: [id number] Reading MD: Damian Hernandez Measurements Intervals [place] Rate: 86 P: 52 CA: 176 QRS: -36 QRSD: 90 T: 239 QT: 461 QTc: 552 Interpretive Statements SINUS RHYTHM LEFT AXIS DEVIATION [QRS AXIS < -30] POSSIBLE ANTERIOR MYOCARDIAL INFARCTION , OF INDETERMINATE AGE [30 ms Q WAVE IN V3/V4, OR R < 0.2 mV IN V4] MODERATE T-WAVE ABNORMALITY, CONSIDER LATERAL ISCHEMIA [-0.1+ mV T-WAVE IN I/aVL/V5/V6] MODERATE T-WAVE ABNORMALITY, CONSIDER INFERIOR ISCHEMIA [-0.1+ mV T-WAVE IN II/aVF] Compared to ECG 08/25/2024 23:54:21 Left-axis deviation now present Left anterior fascicular block no longer present Myocardial infarct finding still present T-wave abnormality still present Possible ischemia still present /store/S0/[id number]/ecg/[id number].pdf
--- NOTE | 2024-08-26 14:19 | XR_ITS ---
Examination: CT brain head without contrast. 2-D sagittal coronal reconstructions Date and time of exam:August 26, 2024 at 1602 hours INDICATIONS: Onset dizziness episodes today CTDI: vol (mGy):55.5 DLP: (mGycm):1148 Technique: Multiple CT axial sections of the brain have been obtained, 5 mm slice thickness. Contrast has not been administered. 2-D sagittal, coronal reconstructions have been obtained Low dose protocols were performed. One or more of the following dose reduction techniques were used; automated exposure control, adjustment of the mA and/or KV according to patient size, use of iterative reconstruction technique. Findings: No significant ventricular enlargement. Stable encephalomalacia left parietal lobe Intra-axial or extra-axial hemorrhage density is not seen. No mass effect or midline shift Basal cisterns are not remarkable. Fourth ventricle is midline. Cranial vault intact. Impression: Negative for acute hemorrhage, mass effect or midline shift As clinically warranted, brain MRI follow-up would best assess for acute ischemic change
--- NOTE | 2024-08-26 14:20 | PD.EDADULT ---
ED General RME/HPI General Chief complaint: Shortness of Breath/Dyspnea Stated complaint: ALTERED Time Seen by Provider: 08/26/24 14:18 Arrival date/time: 08/26/24 13:43 CC: Shortness of breath with confusion versus altered mental status HPI patient presents the ER via EMS with mild confusion we are not sure if the patient's baseline is the patient states she does not have any trouble speaking she has a large amount of stuttering, and confusion expressing herself. Patient was seen here last night for ear infection and was discharged with antibiotics. EMS reports stable vital signs. She has no specific pain. Patient is fidgety and nervous. Conversation between the nurse and the son state that his mentation is baseline, and that the patient missed dialysis yesterday. 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 Related Data Home Medications ?Medication ?Instructions ?Recorded ?Confirmed sertraline 50 mg tablet 50 mg PO QDAY 10/01/18 12/19/21 allopurinol 300 mg tablet 300 mg PO QDAY 01/01/20 12/19/21 folic acid 1 mg tablet 1 mg PO QDAY 09/22/20 12/19/21 calcium acetate(phosphat bind) 667 667 mg PO TID 01/12/21 12/19/21 mg capsule nifedipine 90 mg tablet,extended 90 mg PO QDAY 01/12/21 12/19/21 release 24 hr Held on 07/11/24. Instructions: until follow up with pcp levetiracetam 500 mg tablet 500 mg PO BID 10/31/21 12/19/21 Previous Rx's ?Medication ?Instructions ?Recorded hydralazine 100 mg tablet 100 mg PO TID #90 tabs 03/17/23 insulin glargine 100 unit/mL (3 10 unit (0.1 mL) subcut QPM #15 mL 03/17/23 mL) subcutaneous pen (Lantus Solostar U-100 Insulin) lisinopril 40 mg tablet 40 mg PO BID #60 tabs 03/17/23 levothyroxine 25 mcg tablet 25 mcg PO ACBR #30 tabs 07/11/24 amoxicillin 875 mg-potassium 1 tab PO BID #20 tabs 08/26/24 clavulanate 125 mg tablet Allergies Allergy/AdvReac Type Severity Reaction Status Date / Time No Known Allergies Allergy Verified 08/26/24 14:16 Review of Systems Review of Systems ROS Unobtainable: unobtainable due to mental status Past Medical History Past Medical History NEUROLOGIC: Positive Neurological Disorders, Cerebrovascular Accident, Seizures and Peripheral Neuropathy CARDIAC: Positive Cardiac Disorders, Coronary Artery Disease, Hypercholesterolemia and Hypertension; Negative Congestive Heart Failure RESPIRATORY: Positive Asthma; Negative Chronic Obstructive Pulmonary Disease (COPD) GASTROINTESTINAL: Positive Gastrointestinal Disorders, Ulcer and Obesity; Negative Hepatitis GENITOURINARY: Positive Genitourinary Disorders, Renal Disease and Dialysis REPRODUCTIVE: Positive Previous Pregnancies; Negative Endometriosis, Pelvic Inflammatory Disease or Uterine Prolapse MUSCULOSKELETAL: Negative Musculoskeletal Disorders ENT: Positive Cataracts and Retinal Detachment ENDOCRINE: Positive Endocrine Disorders, Diabetes Mellitus Type 1, Diabetes Mellitus Type 2, Hyperthyroidism and Hypothyroidism HEMATOLOGIC: Negative Blood Disorders PSYCHO/SOCIAL: Positive Depression and Anxiety OTHER HISTORY: Positive Hospitalization and Falls; Negative Autoimmune Disease, Blood Transfusions, Anesthesia Reactions, Organ Transplant, MRSA, VRSA, Vancomycin-Resistant Enterococci, Clostridium Difficile or Cancer Family History FAMILY HISTORY: Positive Family Cardiac Disorders; Negative Family Psychiatric Problems, Family Respiratory Disorders, Family Gastrointestinal Problems, Family Cancer, Family Surgery or Family Anesthesia Reaction Surgical History SURGICAL: Positive Cardiac Surgery, Vascular Surgery, Eye Surgery and Amputation; Negative Abdominal Surgery or Organ Transplant Social History SMOKING STATUS: Never smoker SECOND HAND EXPOSURE: No SUBSTANCE USE: does not use ED Exam Narrative Physical exam: [General: Obese not in any acute distress Head normocephalic HEENT: Within acceptable limits Neck is supple nontender Chest equal chest rise nontender to palpation Respiratory: Tachypneic clear to auscultation no wheezes crackles or rubs CV: Rate rhythm is regular no murmurs rubs or clicks Abdomen is distended secondary to body habitus soft nontender no masses positive bowel sounds all 4 quadrants Back: No CVA tenderness no spinous process tenderness from cervical spine thoracic and lumbar spine Skin: Intact no petechiae rash induration ulceration or crepitus Extremities: Moving all extremity against resistance cap refill less than 2 seconds neurosensory intact Neuro: Awake alert oriented x1, self, Glascow coma 15 no focal deficits] Course Course Course Narrative: Laboratory results do not show an acute need for dialysis at this point time. Reassessment the patient at 1847 the patient is no longer short of breath, is resting comfortably. If chest x-ray shows no acute finding we will discharge the patient home for dialysis in the morning. Quality Measures none Orders Category Date Time Status EKG (ED ONLY) *Do not use* NOW Care 08/26/24 14:[address] head/brain wo con Stat Exams 08/26/24 14:19 Completed EKG (ED Only) Stat Exams 08/26/24 14:19 Draft XR chest 1V Stat Exams 08/26/24 18:43 Completed B-Type Natriuretic Peptide Stat Lab 08/26/24 16:26 Completed CBC Stat Lab 08/26/24 16:26 Completed Comprehensive Metabolic Panel Stat Lab 08/26/24 16:26 Completed Drug Screen,Urine Stat Lab 08/26/24 18:24 Completed LDH (Lactate Dehydrogenase) Stat Lab 08/26/24 16:26 Completed Magnesium Stat Lab 08/26/24 16:26 Completed Partial Thromboplastin Time Stat Lab 08/26/24 16:26 Completed Prothrombin Time with INR Stat Lab 08/26/24 16:26 Completed Troponin I Stat Lab 08/26/24 16:26 Completed Urinalysis Stat Lab 08/26/24 18:24 Completed Vital Signs Vital signs: Vital Signs Temperature 98.4 F 08/26/24 13:50 Pulse Rate 71 08/26/24 13:50 Respiratory Rate 19 08/26/24 13:50 Blood Pressure 152/75 H 08/26/24 13:50 Pulse Oximetry (%) 98 08/26/24 13:50 Oxygen Delivery Method Room Air 08/26/24 13:50 Discharge Plan Plan Patient Disposition: HOME (Self Care) Prescriptions/Referrals Prescriptions/Med Rec: No Action nifedipine 90 mg tablet extended release 24hr 90 mg PO QDAY calcium acetate(phosphat bind) 667 mg capsule 667 mg PO TID Patient Comments: TAKE ONE CAPSULE BY MOUTH THREE TIMES DAILY Rx Instructions: with meals sertraline 50 mg Tablet 50 mg PO QDAY allopurinol 300 mg Tablet 300 mg PO QDAY folic acid 1 mg Tablet 1 mg PO QDAY levetiracetam 500 mg Tablet 500 mg PO BID insulin glargine [Lantus Solostar U-100 Insulin] 100 unit/mL (3 mL) insulin pen 10 unit SUBCUT QPM Qty: 15 0RF Patient Comments: INJECT 90 UNITS SUBCUTANEOUSLY TWICE DAILY hydralazine 100 mg tablet 100 mg PO TID Qty: 90 0RF lisinopril 40 mg Tablet 40 mg PO BID Qty: 60 0RF levothyroxine 25 mcg Tablet 25 mcg PO ACBR Qty: 30 0RF amoxicillin-pot clavulanate 875-125 mg tablet 1 tab PO BID Qty: 20 0RF Referrals: Radha Mane PA-C [Primary Care Provider] - In 1 week Problem List Clinical Impression: Shortness of breath Patient/Caregiver Discharge Instructions Education Materials: ED Shortness of Breath (Dyspnea) Print Language: Occitan Stand Alone Forms: [employer] Info., Work/School Release, Patient Portal Info Letter MIN/JASWANT Supervising Physician MIN/JASWANT Supervising Physician: Alexandre Matos ENP [facility] EKG EKG Interpretation(s): EKG performed at 1531 shows a ventricular rate of 86 IA interval 176 QRS of 9 0 QTc 504 sinus rhythm left axis deviation prolonged QT interval. Labs Lab(s) Interpretation(s): CBC shows no leukocytosis and H&H of 9.6 and 28.6 respectively note this appears to be essentially unchanged chronic but stable anemia no thrombocytopenia Coags within acceptable limits Chemistry shows sodium 139 potassium 3.9 chloride of 98 CO2 of 25.9 gap of 15 BUN of 47 creatinine of 7.9 GFR of 6 glucose of 155 calcium of 8.0 T. bili of 0.2 no transaminitis LDH is normal troponin is negative BNP is 160.
[2024-08-26 15:42] VITALS: BP 138/52; PULSE 87; RESP 19; TEMP 36.9; O2SAT 99
[2024-08-26 16:37] VITALS: BP 140/60; PULSE 91; RESP 100; TEMP 36.8; O2SAT 100
[2024-08-26 16:37] LABS: Basophils % (Auto) 0 % (0-2.5); Eosinophils # (Auto) 0.1 Thou/mm3 (0.0-0.5); Eosinophils % (Auto) 2 % (0-10); Hematocrit 28.6 % (36.0-46.0); Hemoglobin 9.6 g/dL (12.0-16.0); Immature Granulocytes % (Auto) 0 % (0-0); Immature Granulocytes Auto 0.02 Thou/mm3 (0.00-0.00); Lymphocytes # (Auto) 1.7 Thou/mm3 (1.0-4.8); Lymphocytes % (Auto) 24 % (10-50); Mean Corpuscular HGB Conc 33.6 g/dl (31.0-37.0); Mean Corpuscular Hemoglobin 32.1 pg (25.0-35.0); Mean Corpuscular Volume 96 fL (80-100); Monocytes # (Auto) 0.7 Thou/mm3 (0.0-0.8); Monocytes % (Auto) 10 % (0-12); Neutrophils # (Auto) 4.4 Thou/mm3 (1.8-7.7); Neutrophils % (Auto) 64 % (37-80); Nucleated Red Blood Cell % 0 /100 WBC (0); Platelet Count 246 Thou/mm3 (140-440); RDW Standard Deviation 52.6 fL (36.4-46.3); Red Blood Count 2.99 Miln/mm3 (4.00-5.20); White Blood Count 6.8 Thou/mm3 (3.6-11.0)
[2024-08-26 16:51] LABS: Partial Thromboplastin Time 27.2 Seconds (22.0-36.0)
[2024-08-26 17:16] LABS: Alanine Aminotransferase 8 U/L (10-49); Albumin, Serum 4.2 gm/dL (3.5-5.0); Albumin/Globulin Ratio 1.2 (1.2-2.2); Alkaline Phosphatase 62 U/L (46-116); Anion Gap 15 (7-16); Aspartate Amino Transferase 15 U/L (0-34); B-Type Natriuretic Peptide 160 pg/mL (0-100); BUN/Creatinine Ratio 6 Ratio (12-20); Bilirubin,Total 0.2 mg/dL (0.3-1.2); Blood Urea Nitrogen 47 mg/dL (9-23); Carbon Dioxide 25.9 mMol/L (20.0-31.0); Chloride 98 mMol/L (98-107); Creatinine (Component) 7.9 mg/dL (0.6-1.3); Globulin 3.4 gm/dL (2.3-3.5); Glucose 155 mg/dL (74-106); LDH (Lactate Dehydrogenase) 171 U/L (120-246); Magnesium 1.8 mg/dL (1.6-2.6); Osmolality,Calculated 292 (275-295); Potassium 3.9 mMol/L (3.4-5.1); Sodium 139 mMol/L (136-145); Total Protein 7.6 gm/dL (5.7-8.2); Troponin I < 0.020 ng/mL (0.0-0.045); eGFR 6 See Note
[2024-08-26 18:06] VITALS: BP 105/48; PULSE 85; RESP 15; TEMP 37; O2SAT 98
[2024-08-26 18:11] VITALS: BP 126/50; PULSE 84; RESP 16; TEMP 37; O2SAT 99
--- NOTE | 2024-08-26 18:43 | XR_ITS ---
Examination: AP chest single view TECHNIQUE: Portable sitting AP chest single view Exam date and time: August 26, 2024 1851 hours INDICATION: Shortness of breath today. FINDINGS: No significant cardiac enlargement No pneumonia or pulmonary edema. Moderate osteopenia IMPRESSION: No active disease
[2024-08-26 18:51] LABS: Collection Type, Urine Clean Catch
[2024-08-26 19:10] LABS: Bilirubin,Urine Negative (Negative); Blood,Urine Negative (Negative); Clarity,Urine Clear (Clear/Hazy); Color,Urine Lt-Yellow (Lt Yel-Yel); Glucose, Urine Negative (Negative); Hyaline Casts,Urine < 1 /hpf (0-1); Ketones,Urine Negative (Negative); Leukocyte Esterase,Urine Positive (Negative); Nitrite,Urine Negative (Negative); PH,Urine 7.5 (5.0-7.0); Protein,Urine 1+ (Neg - Trace); RBC,Urine 1 /hpf (0-3); Specific Gravity,Urine 1.013 (1.001-1.035); Squamous Epithelial Cell,Urine 2 /hpf (0-5); Urobilinogen,Urine Negative mg/dL (0.0-1.0); WBC,Urine 51 /hpf (0-5)
[2024-08-26 19:39] LABS: Amphetamine/Methamp Scrn,U Negative (Negative); Barbiturate Screen,Urine Negative (Negative); Benzodiazepines Screen,Urine Negative (Negative); Benzoylecgonine Screen, Ur Negative (Negative); Fentanyl Screen,Urine Negative (Negative); Opiate Screen,Urine Negative (Negative); THC Screen,Urine Negative (Negative)
== END 2024-08-26 19:23 | disposition home or self-care (01) ==
PROVIDERS: Registered Nurse General Practice; Emergency Provider Emergency Medicine; PCP Physician Assistant
DX: R06.02 Shortness of breath (principal); R41.0 Disorientation, unspecified
CPT/HCPCS: 51701; 36415; 70450; 71045; 80053; 80307; 81001; 83615; 83735; 83880; 84484; 85025; 85610; 85730; 93005; 99284

== ENCOUNTER 2024-08-27 22:54 | Inpatient (IN) | payer MEDICARE, MEDICAID, SELFPAY ==
[2024-08-27 23:03] VITALS: PULSE 93; RESP 23
[2024-08-27 23:10] VITALS: BP 119/55; PULSE 90; RESP 18; TEMP 36.6; O2SAT 99
--- NOTE | 2024-08-27 23:13 | XR_ITS ---
Examination: CT brain head without contrast. 2-D sagittal coronal reconstructions Date and time of exam:August 27, 2024, 11:57 PM Comparison August 26, 2024 INDICATIONS: Altered mental status beginning 2 days ago CTDI: vol (mGy):54.6 DLP: (mGycm):1072 Technique: Multiple CT axial sections of the brain have been obtained, 5 mm slice thickness. Contrast has not been administered. 2-D sagittal, coronal reconstructions have been obtained Low dose protocols were performed. One or more of the following dose reduction techniques were used; automated exposure control, adjustment of the mA and/or KV according to patient size, use of iterative reconstruction technique. Findings: No significant ventricular enlargement. Again noted extensive encephalomalacia in the left temporal parietal occipital lobe as well as old brainstem infarct Intra-axial or extra-axial hemorrhage density is not seen. No mass effect or midline shift Basal cisterns are not remarkable. Fourth ventricle is midline. Cranial vault intact. Impression: Negative for acute hemorrhage, mass effect or midline shift Brain MRI follow-up would best assess for acute ischemic change
[2024-08-27 23:15] VITALS: PULSE 85; RESP 20; O2SAT 99
--- NOTE | 2024-08-27 23:21 | PD.EDAMS ---
Altered Mental Status RME/HPI General Chief Complaint: Altered Mental Status Stated Complaint: ALTERED Time Seen by Provider: 08/27/24 23:04 Arrival date/time: 08/27/24 22:54 RME / HPI RME / HPI narrative: Dr. Ruelas's Main ED Evaluation: 54yo female with a history of CVA, ESRD on HD T//Sun, HTN, DM BIBA from home presents to the ED for a chief complaint of altered mental status. At 2308, I spoke with the patient's son Ilya [id number], who states he received a call from the patient earlier tonight, stating she was continuing of right ear pain and was feeling short of breath. He felt that the patient was not conversing normally, so he called 911 to have her brought in for evaluation. Son states the patient last had dialysis done on Sunday. He denies the patient being on narcotics. Patient does live alone. Patient is [id number] and is not answering many questions. PCP is [facility]. Director Of Cardiac Rehabilitation is Dr. Deshpande. Related Data Home Medications ?Medication ?Instructions ?Recorded ?Confirmed sertraline 50 mg tablet 50 mg PO QDAY 10/01/18 12/19/21 allopurinol 300 mg tablet 300 mg PO QDAY 01/01/20 12/19/21 folic acid 1 mg tablet 1 mg PO QDAY 09/22/20 12/19/21 calcium acetate(phosphat bind) 667 667 mg PO TID 01/12/21 12/19/21 mg capsule nifedipine 90 mg tablet,extended 90 mg PO QDAY 01/12/21 12/19/21 release 24 hr Held on 07/11/24. Instructions: until follow up with pcp levetiracetam 500 mg tablet 500 mg PO BID 10/31/21 12/19/21 Previous Rx's ?Medication ?Instructions ?Recorded hydralazine 100 mg tablet 100 mg PO TID #90 tabs 03/17/23 insulin glargine 100 unit/mL (3 10 unit (0.1 mL) subcut QPM #15 mL 03/17/23 mL) subcutaneous pen (Lantus Solostar U-100 Insulin) lisinopril 40 mg tablet 40 mg PO BID #60 tabs 03/17/23 levothyroxine 25 mcg tablet 25 mcg PO ACBR #30 tabs 07/11/24 amoxicillin 875 mg-potassium 1 tab PO BID #20 tabs 08/26/24 clavulanate 125 mg tablet Allergies Allergy/AdvReac Type Severity Reaction Status Date / Time No Known Allergies Allergy Verified 08/27/24 23:02 Review of Systems Review of Systems Systems Reviewed: All systems reviewed, normal except as documented Past Medical History Past Medical History NEUROLOGIC: Positive Neurological Disorders, Cerebrovascular Accident, Seizures and Peripheral Neuropathy CARDIAC: Positive Cardiac Disorders, Coronary Artery Disease, Hypercholesterolemia and Hypertension; Negative Congestive Heart Failure RESPIRATORY: Positive Asthma; Negative Chronic Obstructive Pulmonary Disease (COPD) GASTROINTESTINAL: Positive Gastrointestinal Disorders, Ulcer and Obesity; Negative Hepatitis GENITOURINARY: Positive Genitourinary Disorders, Renal Disease and Dialysis REPRODUCTIVE: Positive Previous Pregnancies; Negative Endometriosis, Pelvic Inflammatory Disease or Uterine Prolapse MUSCULOSKELETAL: Negative Musculoskeletal Disorders ENT: Positive Cataracts and Retinal Detachment ENDOCRINE: Positive Endocrine Disorders, Diabetes Mellitus Type 1, Diabetes Mellitus Type 2, Hyperthyroidism and Hypothyroidism HEMATOLOGIC: Negative Blood Disorders PSYCHO/SOCIAL: Positive Depression and Anxiety OTHER HISTORY: Positive Hospitalization and Falls; Negative Autoimmune Disease, Blood Transfusions, Anesthesia Reactions, Organ Transplant, MRSA, VRSA, Vancomycin-Resistant Enterococci, Clostridium Difficile or Cancer Family History FAMILY HISTORY: Positive Family Cardiac Disorders; Negative Family Psychiatric Problems, Family Respiratory Disorders, Family Gastrointestinal Problems, Family Cancer, Family Surgery or Family Anesthesia Reaction Surgical History SURGICAL: Positive Cardiac Surgery, Vascular Surgery, Eye Surgery and Amputation; Negative Abdominal Surgery or Organ Transplant Social History SMOKING STATUS: Never smoker SECOND HAND EXPOSURE: No SUBSTANCE USE: does not use ED Exam Narrative Physical exam: General: Non-toxic, well appearing, in no acute distress, and appears older than stated age; has dry mucous membranes Vital signs: Normal. Head: Normocephalic and atraumatic. Eyes: Aproptotic, extraocular movements intact. Ears: Right otitis media, cannot visualize the canal, no swelling. Nose: Nares without evidence of rhinorrhea. Neck: Supple without menigismus without lympadenopathy. Heart: Regular rate and rhythm without murmur, gallops, or rubs. Lungs: Clear to auscultation without wheezing, rales, or rhonchi. Abdomen: Soft, non distended. No tenderness. Normal bowel sounds. Back: No costovertebral angle tenderness. Neurological: Alert and oriented to person, place, time. Baseline right-sided weakness. Extremities: no cyanosis or edema. Right AV fistula with a good thrill. Skin: no rashes, ecchymosis, or lesions. Vascular changes to the BLE. Ecchymosis to the mid-abdomen. Well healed surgical scar at the right chest. Course Quality Measures none Orders Category Date Time Status EKG (ED ONLY) *Do not use* NOW Care 08/28/24 01:28 Active IV [Insert IV] STAT Care 08/27/24 23:14 Active Straight [In and Out Catheter] X1 Care 08/27/24 23:[address] head/brain wo con Stat Exams 08/27/24 23:13 Taken EKG (ED Only) Stat Exams 08/28/24 01:28 Ordered BNP [B-Type Natriuretic Peptide] Stat Lab 08/27/24 23:30 Completed CBC Stat Lab 08/27/24 23:30 Completed CMP [Comprehensive Metabolic Panel] Stat Lab 08/27/24 23:30 Completed Drug Screen,Urine Stat Lab 08/27/24 23:46 Completed Folate AM DRAW Lab 08/28/24 05:00 Ordered Lactic Acid [Lactate (Lactic Acid)] Stat Lab 08/27/24 23:30 Completed Procalcitonin Stat Lab 08/27/24 23:30 Completed Syphilis AM DRAW Lab 08/28/24 05:00 Ordered Troponin I Stat Lab 08/27/24 23:30 Completed Urinalysis Stat Lab 08/27/24 23:46 Completed Urine Culture Stat Lab 08/27/24 23:46 Received Vitamin B12 AM DRAW Lab 08/28/24 05:00 Ordered Vital Signs Vital signs: Vital Signs Pulse Rate 93 08/27/24 23:03 Respiratory Rate 23 H 08/27/24 23:03 Altered Mental Status MDM Narrative MDM Narrative:: Scribe Attestation: 08/27/24 - Christi Sen am scribing for and in the presence of Dr. Ruelas. Patient is not altered to me. Her pupils are not pinpoint. Patient last had dialysis on Sunday. Due to the patient's labs, will consult an admission to the hospitalist. 0059: Discussed case with the resident physician, attending Dr. Arisa from Hospitalist service regarding admission. Discussed patients ED course, exam findings, labs, and radiology results. The Hospitalist agrees to accept the patient for admission. Patient data External records reviewed:: [facility] previous records (Per chart review, patient was seen here yesterday for shortness of breath.) Clinical information provided by:: EMS and family (patient's son) Social determinants that could affect healthcare access:: none Patient has the following chronic illnesses:: CVA, ESRD on HD T/Th/Sat, HTN, DM How is presenting disease/condition affected by chronic disease/condition?: caused by Evaluation data The following diagnostics were reviewed and interpreted by me:: lab results, radiology exam(s) and EKG tracing(s) Lab and/or radiology exams considered but not ordered:: none Interpretation Summary: WBC count is normal, Creatinine is elevated at 9.6, Glucose is 154, Lactic Acid is elevated at 2.6, Troponin is normal, BNP is 226, Procalcitonin is normal, according to my interpretation. EKG done at 2311, NSR, rate of 90, nonspecific ST-T wave changes in V2-V6, lead I, and avL; QTc: 464, similar to previous EKGs done on 08/25/24 and 08/26/24. Telerad Preliminary Report Draft Patient: YAYA CABRERA. Record#: [id number] Birthdate: 1970 Age/Sex: 54 / F Location: [facility] Attending Dr: Ordering Physician: Date of Service: Procedure(s): Accession Number(s): cc: ~ CT scan of the head without intravenous contrast (axial sections with sagittal and coronal reformats). August 27, 2024 at 2346 hours Clinical History: 54 ear pain. Comparison: Compared with the prior study dated August 26, 2024. Findings: Unchanged encephalomalacia extending between the left frontal, parietal, and temporal lobes. No evidence of intracranial hemorrhage or midline shift. The ventricles and CSF spaces are unremarkable. The calvarium is unremarkable. The mastoid air cells and the visualized paranasal sinuses are clear. Impression: No evidence of intracranial hemorrhage or midline shift. Unchanged encephalomalacia extending between the left frontal, parietal, and temporal lobes. Report Electronically Signed By: Enrico Elizabeth 08/28/2024 12:48:14 AM Medications / Prescriptions Medications or Prescriptions considered but not ordered:: none Medication administrations:: Medication Administration History Acetaminophen (Acetaminophen 325 Mg Tablet) 650 mg PO Q6H PRN PRN Reason: Fever >100.3 or pain 1-3 Stop: 09/27/24 01:49 Amoxicillin/Clavulanate Potassium (Amoxicillin/Pot Clav 875 Tablet) 1 tab PO BID [facility] Stop: 09/04/24 08:59 Dextrose (Dextrose 50%-Water Inj 50 Ml Syringe) 25 ml IV Q15MIN PRN PRN Reason: BG 50-70 responsive npo pt Stop: 09/27/24 01:52 Dextrose (Dextrose 50%-Water Inj 50 Ml Syringe) 50 ml IV Q15MIN PRN PRN Reason: BG <50 OR BG <70 & pt unresponsive Stop: 09/27/24 01:52 Glucagon (Glucagon Inj 1 Mg Vial) 1 mg IM Q15MIN PRN PRN Reason: BG <70, and no IV access Heparin Sodium (Porcine) (Heparin Sod Inj 5000 Unit/Ml Vial) 5,000 unit SC Q8HR [facility] Stop: 09/11/24 05:59 Last Admin: 08/28/24 05:09 Dose: 5,000 unit Documented By: TRINH Co-signed By: AM Insulin Human Lispro (Insulin Lispro (Admelog) 1 Unit/0.01 Ml Unit) 0 unit SC [facility]; Protocol Stop: 09/27/24 07:29 Levetiracetam (Levetiracetam 250 Mg Tablet) 500 mg PO BID [facility] Stop: 09/27/24 08:59 Levothyroxine Sodium (Levothyroxine Sodium 25 Mcg Tablet) 25 mcg PO ACBR [facility] Stop: 09/27/24 05:59 Last Admin: 08/28/24 05:09 Dose: 25 mcg Documented By: TRINH Ondansetron HCl (Ondansetron Inj 2 Mg/Ml Inj 2 Ml) 4 mg IV Q6H PRN; Protocol PRN Reason: NAUSEA OR VOMITING Stop: 09/27/24 01:49 see above, if any Consultations Consultation(s) initiated? (list below): Yes Diagnosis Differential diagnosis altered mental status: other (failure to thrive, dehydration, electrolyte abnormality, worsening ear infection, doubt meningitis; noncompliance with medications and dialysis) Most likely diagnosis given after review of the tests above:: see clinical impression below Admission Indicated Admission indicated?: indicated Admission Request Was there a request for admission?: Yes Admission Attestation Admission request attestation: Discussed case with [] from Hospitalist service regarding admission. Discussed patients ED course, exam findings, labs, and radiology results. The Hospitalist [agrees,declines] to accept the patient for admission. Disposition Plan Disposition Plan: Admit Discharge Plan Plan Patient Disposition: Admit Acute Care w/in Hospital Patient condition on transfer: Stable Problem List Clinical Impression: Anxiety, Need for acute hemodialysis, Otitis externa
[2024-08-27 23:47] LABS: Lactate (Lactic Acid) 2.6 mMol/L (0.4-2.0)
[2024-08-27 23:51] LABS: Basophils % (Auto) 1 % (0-2.5); Eosinophils # (Auto) 0.2 Thou/mm3 (0.0-0.5); Eosinophils % (Auto) 2 % (0-10); Hematocrit 26.6 % (36.0-46.0); Hemoglobin 8.9 g/dL (12.0-16.0); Immature Granulocytes % (Auto) 0 % (0-0); Immature Granulocytes Auto 0.03 Thou/mm3 (0.00-0.00); Lymphocytes # (Auto) 1.2 Thou/mm3 (1.0-4.8); Lymphocytes % (Auto) 16 % (10-50); Mean Corpuscular HGB Conc 33.5 g/dl (31.0-37.0); Mean Corpuscular Hemoglobin 32.5 pg (25.0-35.0); Mean Corpuscular Volume 97 fL (80-100); Monocytes # (Auto) 0.8 Thou/mm3 (0.0-0.8); Monocytes % (Auto) 11 % (0-12); Neutrophils # (Auto) 5.5 Thou/mm3 (1.8-7.7); Neutrophils % (Auto) 71 % (37-80); Nucleated Red Blood Cell % 0 /100 WBC (0); Platelet Count 238 Thou/mm3 (140-440); RDW Standard Deviation 52.3 fL (36.4-46.3); Red Blood Count 2.74 Miln/mm3 (4.00-5.20); White Blood Count 7.7 Thou/mm3 (3.6-11.0)
[2024-08-28] VITALS (30 sets, daily range): BP systolic 94–149; BP diastolic 38–66; PULSE 70–90; RESP 14–98; TEMP 36.1–36.6; O2SAT 96–99; BMI 14.0
[2024-08-28 00:21] LABS: Alanine Aminotransferase 7 U/L (10-49); Albumin, Serum 4.1 gm/dL (3.5-5.0); Albumin/Globulin Ratio 1.2 (1.2-2.2); Alkaline Phosphatase 57 U/L (46-116); Anion Gap 16 (7-16); Aspartate Amino Transferase 15 U/L (0-34); BUN/Creatinine Ratio 6 Ratio (12-20); Bilirubin,Total 0.2 mg/dL (0.3-1.2); Blood Urea Nitrogen 59 mg/dL (9-23); Calcium 7.4 mg/dL (8.3-10.6); Calcium (Corrected) 7.4 mg/dL (8.5-10.1); Carbon Dioxide 27.6 mMol/L (20.0-31.0); Chloride 96 mMol/L (98-107); Creatinine (Component) 9.6 mg/dL (0.6-1.3); Estimated Creatinine Clearance 10.3 mL/min (>60); Globulin 3.3 gm/dL (2.3-3.5); Glucose 154 mg/dL (74-106); Osmolality,Calculated 298 (275-295); Potassium 3.4 mMol/L (3.4-5.1); Procalcitonin 0.25 ng/ml (0.0-0.49); Sodium 140 mMol/L (136-145); Total Protein 7.4 gm/dL (5.7-8.2); Troponin I 0.032 ng/mL (0.0-0.045); eGFR 4 See Note
[2024-08-28 00:22] LABS: B-Type Natriuretic Peptide 226 pg/mL (0-100)
[2024-08-28 00:43] LABS: Collection Type, Urine Clean Catch
--- NOTE | 2024-08-28 00:49 | PRELIM_ITS ---
CT scan of the head without intravenous contrast (axial sections with sagittal and coronal reformats). August 27, 2024 at 2346 hours Clinical History: 54 ear pain. Comparison: Compared with the prior study dated August 26, 2024. Findings: Unchanged encephalomalacia extending between the left frontal, parietal, and temporal lobes. No evidence of intracranial hemorrhage or midline shift. The ventricles and CSF spaces are unremarkable. The calvarium is unremarkable. The mastoid air cells and the visualized paranasal sinuses are clear. Impression: No evidence of intracranial hemorrhage or midline shift. Unchanged encephalomalacia extending between the left frontal, parietal, and temporal lobes. Report Electronically Signed By: Enrico Elizabeth 08/28/2024 12:48:14 AM [EST]
[2024-08-28 00:51] LABS: Bilirubin,Urine Negative (Negative); Blood,Urine Trace (Negative); Clarity,Urine Clear (Clear/Hazy); Color,Urine Lt-Yellow (Lt Yel-Yel); Glucose, Urine Negative (Negative); Hyaline Casts,Urine < 1 /hpf (0-1); Ketones,Urine Negative (Negative); Leukocyte Esterase,Urine Positive (Negative); Nitrite,Urine Negative (Negative); PH,Urine 6.5 (5.0-7.0); Protein,Urine 1+ (Neg - Trace); RBC,Urine < 1 /hpf (0-3); Specific Gravity,Urine 1.018 (1.001-1.035); Squamous Epithelial Cell,Urine 3 /hpf (0-5); WBC,Urine 9 /hpf (0-5)
[2024-08-28 01:00] LABS: Amphetamine/Methamp Scrn,U Negative (Negative); Barbiturate Screen,Urine Negative (Negative); Benzodiazepines Screen,Urine Negative (Negative); Benzoylecgonine Screen, Ur Negative (Negative); Fentanyl Screen,Urine Negative (Negative); Opiate Screen,Urine Negative (Negative); THC Screen,Urine Negative (Negative)
--- NOTE | 2024-08-28 02:16 | PD.RESHP ---
Documentation for date of: 08/28/24 HPI History of Present Illness Chief complaint: ams History of present illness: Patient is a 54-year-old female with a previous neck medical history of CVA with residual right-sided hemiparesis, seizure disorder, end-stage renal disease on dialysis T//Sun (last session Sunday), hypertension, type 2 diabetes who was brought to the ED 08/27/2024 due to altered mental status. Due to altered mental status history was taken through chart review and talking to the medical personnel. Patient was here the same day due to mild confusion, but after the conversation with son it turned out the patient was at her baseline mentation and she was discharged home. Then she was brought to the ED later her son reported that the patient was not talking as usual so she brought her in for evaluation again. Patient reports right ear pain and decreased hearing in the right ear. She also missed her dialysis session on Sunday, she reports she missed it due to ear pain and not feeling well. Patient's probate paralegal is Dr Deshpande. Spoke to the son later on, he's unsure if patient is at the baseline, reports that patient is confused after the stroke. ED course: Initial vitals 113/55, pulse 90, respiratory rate 18, afebrile, saturating well on room air. Labs showed WBC count of 7.7, hemoglobin 8.9, hematocrit 26.6, platelets 238. INR 1.0. Sodium 140, potassium 3.4, BUN 59, creatinine 9.6, EGFR 4, glucose 154, lactic acid 2.6, BNP 226, Pro-Gene 0.25. UA was not significant for signs of UTI. U tox was negative. Social history: Patient reports living alone, denies smoking, drinking alcohol. Medications: Med rec is pending Allergies: Denies Patient is going to be admitted for acute encephalopathy treatment and workup. Review of Systems Review of Systems Systems Reviewed: All systems reviewed, normal except as documented Past Medical History Past Medical History NEUROLOGIC: Positive Neurological Disorders, Cerebrovascular Accident, Seizures and Peripheral Neuropathy CARDIAC: Positive Cardiac Disorders, Coronary Artery Disease, Hypercholesterolemia and Hypertension; Negative Congestive Heart Failure RESPIRATORY: Positive Asthma; Negative Chronic Obstructive Pulmonary Disease (COPD) GASTROINTESTINAL: Positive Gastrointestinal Disorders, Ulcer and Obesity; Negative Hepatitis GENITOURINARY: Positive Genitourinary Disorders, Renal Disease and Dialysis REPRODUCTIVE: Positive Previous Pregnancies; Negative Endometriosis, Pelvic Inflammatory Disease or Uterine Prolapse MUSCULOSKELETAL: Negative Musculoskeletal Disorders ENT: Positive Cataracts and Retinal Detachment ENDOCRINE: Positive Endocrine Disorders, Diabetes Mellitus Type 1, Diabetes Mellitus Type 2, Hyperthyroidism and Hypothyroidism HEMATOLOGIC: Negative Blood Disorders PSYCHO/SOCIAL: Positive Depression and Anxiety OTHER HISTORY: Positive Hospitalization and Falls; Negative Autoimmune Disease, Blood Transfusions, Anesthesia Reactions, Organ Transplant, MRSA, VRSA, Vancomycin-Resistant Enterococci, Clostridium Difficile or Cancer Family History FAMILY HISTORY: Positive Family Cardiac Disorders; Negative Family Psychiatric Problems, Family Respiratory Disorders, Family Gastrointestinal Problems, Family Cancer, Family Surgery or Family Anesthesia Reaction Surgical History SURGICAL: Positive Cardiac Surgery, Vascular Surgery, Eye Surgery and Amputation; Negative Abdominal Surgery or Organ Transplant Social History SMOKING STATUS: Never smoker SECOND HAND EXPOSURE: No SUBSTANCE USE: does not use Exam Vital Signs Temp Pulse Resp BP Pulse Ox O2 Del Method 98 F 90 18 119/55 L 99 Room Air 08/27/24 23:10 08/27/24 23:10 08/27/24 23:10 08/27/24 23:10 08/27/24 23:10 08/27/24 23:10 Narrative Exam Physical Exam General: Sleeping, easily awakes. HEENT: Normocephalic, atraumatic, mucous membranes moist. Heart: Regular rate and rhythm, no murmurs. Lungs: Clear to auscultation with no wheezing or crackles. Abdomen: Soft, nondistended, nontender, positive bowel sounds. ?No guarding or rebound tenderness. Neurologic: Alert and oriented x2 (does not name month and year, reports the name and city correct), left sided mild hemiparesis. Extremities: No edema. Skin: No rash or ecchymoses. Left tibial abrasions. Increased facial hair in the lower half of the face. Results: Labs 08/27/24 23:30 08/27/24 23:30 Labs: Short CBC 08/27/24 Range/Units 23:30 WBC 7.7 (3.6-11.0) Thou/mm3 Hgb 8.9 L (12.0-16.0) g/dL Hct 26.6 L (36.0-46.0) % Plt Count 238 (140-440) Thou/mm3 BMP 08/27/24 23:30 Sodium 140 Potassium 3.4 D Chloride 96 L Carbon Dioxide 27.6 BUN 59 H Creatinine 9.6 H* D Glucose 154 H Calcium 7.4 L Cardiac Enzymes 08/27/24 Range/Units 23:30 Troponin I 0.032 (0.0-0.045) ng/mL Liver Function 08/27/24 Range/Units 23:30 Total Bilirubin 0.2 L (0.3-1.2) mg/dL AST 15 (0-34) U/L ALT 7 L (10-49) U/L Alkaline Phosphatase 57 (46-116) U/L Albumin 4.1 (3.5-5.0) gm/dL Urine 08/27/24 Range/Units 23:46 Urine Color Lt-Yellow (Lt Yel-Yel) Urine Clarity Clear (Clear/Hazy) Urine pH 6.5 (5.0-7.0) Ur Specific [place] 1.018 (1.001-1.035) Urine Protein 1+ A (Neg - Trace) Urine Glucose (UA) Negative (Negative) Quality Measures Quality Measures VTE prophylaxis Medications Home Medications and Allergies Home Medications ?Medication ?Instructions ?Recorded ?Confirmed ?Type sertraline 50 mg tablet 50 mg PO QDAY 10/01/18 12/19/21 History allopurinol 300 mg tablet 300 mg PO QDAY 01/01/20 12/19/21 History folic acid 1 mg tablet 1 mg PO QDAY 09/22/20 12/19/21 History calcium acetate(phosphat bind) 667 667 mg PO TID 01/12/21 12/19/21 History mg capsule nifedipine 90 mg tablet,extended 90 mg PO QDAY 01/12/21 12/19/21 History release 24 hr Held on 07/11/24. Instructions: until follow up with pcp levetiracetam 500 mg tablet 500 mg PO BID 10/31/21 12/19/21 History Allergies Allergy/AdvReac Type Severity Reaction Status Date / Time No Known Allergies Allergy Verified 08/27/24 23:02 Visit Medications Acetaminophen (Acetaminophen 325 Mg Tablet) 650 mg PO Q6H PRN PRN Reason: Fever >100.3 or pain 1-3 Stop: 09/27/24 01:49 Dextrose (Dextrose 50%-Water Inj 50 Ml Syringe) 25 ml IV Q15MIN PRN PRN Reason: BG 50-70 responsive npo pt Stop: 09/27/24 01:52 Dextrose (Dextrose 50%-Water Inj 50 Ml Syringe) 50 ml IV Q15MIN PRN PRN Reason: BG <50 OR BG <70 & pt unresponsive Stop: 09/27/24 01:52 Glucagon (Glucagon Inj 1 Mg Vial) 1 mg IM Q15MIN PRN PRN Reason: BG <70, and no IV access Heparin Sodium (Porcine) (Heparin Sod Inj 5000 Unit/Ml Vial) 5,000 unit SC Q8HR [facility] Stop: 09/11/24 05:59 Insulin Human Lispro (Insulin Lispro (Admelog) 1 Unit/0.01 Ml Unit) 0 unit SC AC [facility]; Protocol Stop: 09/27/24 07:29 Levetiracetam (Levetiracetam 250 Mg Tablet) 500 mg PO BID [facility] Stop: 09/27/24 08:59 Levothyroxine Sodium (Levothyroxine Sodium 25 Mcg Tablet) 25 mcg PO ACBR [facility] Stop: 09/27/24 05:59 Ondansetron HCl (Ondansetron Inj 2 Mg/Ml Inj 2 Ml) 4 mg IV Q6H PRN; Protocol PRN Reason: NAUSEA OR VOMITING Stop: 09/27/24 01:49 Assessment & Plan Plan Patient is a 54-year-old female with a previous neck medical history of CVA with residual right-sided hemiparesis, seizure disorder, end-stage renal disease on dialysis (last session Sunday), hypertension, type 2 diabetes who was brought to the ED 08/27/2024 due to altered mental status. Patient is going to be admitted for acute encephalopathy treatment and workup. #Acute encephalopathy #Chronic cognitive dysfunction #History of CVA #Seizure disorder Ddx: Acute encephalopathy vs chronic cognitive deficit. Patient is AOx1. Head CT was negative for acute stroke, intracranial hemorrhage, showed unchanged encephalomalacia in the left frontal, parietal and temporal lobes. Mastoid air cells and paranasal sinuses are clear. She has also missed her last dialysis session. Plan: ?Swallow screen ? TSH, folate, B12, syphilis serology ? Neurochecks every 4 hours ? Resumed home Keppra - physical therapy eval #Missed dialysis session #End-stage renal disease on dialysis Patient is on dialysis Sunday, , Sunday. Missed her last session on Sun. Patient's probate paralegal is Dr Deshpande. Plan: ? Continue with dialysis as scheduled ? Monitor CMP ? Renally dose medications ? [employer] Dr Deshpande was consulted for inpatient dialysis #Otitis externa Plan: - continue current augmentin #History of hypothyroidism Plan: ? TSH ordered ? Home levothyroxine resumed #Type 2 diabetes Plan: ? Insulin sliding scale ? Hypoglycemia protocol #Hypertension Plan: ? Will hold blood pressure medications due to normal blood pressure ? Med rec is pending Health maintenance: FEN: NPO until passes swallow screen DVT prophylaxis: heparin sc q8hr GI prophylaxis: none Dispo: telemetry CODE STATUS: Full code Plan of care discussed with attending Dr. Arias. Kenzie Talley MD, PGY 1. Attending Provider Attestation/Addendum I attest that I was physically present for the evaluation, physical examination, lab and imaging review of the patient with the residents. I discussed the case with the residents and agree with the findings and plans of care as documented above. Patient is a 54 years old female with past medical history of CVA with residual right-sided weakness, seizure disorder, ESRD on hemodialysis, hypertension, diabetes who presented to the ED with complaint of altered mental status. At bedside, patient was oriented x 2, unable to provide appropriate history. In the ED, vital signs were within normal limits. Lab results show hemoglobin of 8.9, potassium 3.4, BUN/creatinine 59/9.6, lactic acid 2.6, BNP 226. Urine toxicology was negative. UA and chest x-ray were unremarkable. Head CT was obtained, which was negative for acute hemorrhage, mass effect or midline shift. Patient also missed her hemodialysis session on Sunday. We will admit the patient for management of acute encephalopathy in setting of previous CVA, seizure disorder, missed hemodialysis, elevated BUN and creatinine. We will obtain TSH, folate, B12 and syphilis. We will obtain physical therapy and frequent neurochecks. Resumed her antiepileptics. Nephrology consulted for arrangement of hemodialysis. Patient was complaining of right ear pain, was found to have otitis externa with primary, we will continue Augmentin. Started insulin regimen for diabetes. Later on, we were able to get a hold of patient's son, who is stated that patient gets confused on and off even at baseline due to cognitive decline. He is unsure if her confusion is worse compared to baseline at this time. Jocy Arias MD
[2024-08-28 02:39] LABS: Reflex Lactate? Y
--- NOTE | 2024-08-28 03:30 | PC.NURSE ---
report called to Elvia TOLBERT. pt taken to on monitor by me.
[2024-08-28] MEDS: HEPARIN SOD INJ 5000 UNIT/ML VIAL SC ×3 (05:09→21:04)
[2024-08-28] MEDS: LEVOTHYROXINE SODIUM 25 MCG TABLET PO (05:09)
[2024-08-28] MEDS: ACETAMINOPHEN 325 MG TABLET 650 MG PO (08:37)
[2024-08-28 09:59] LABS: Basophils % (Auto) 0 % (0-2.5); Eosinophils # (Auto) 0.2 Thou/mm3 (0.0-0.5); Eosinophils % (Auto) 3 % (0-10); Immature Granulocytes % (Auto) 0 % (0-0); Immature Granulocytes Auto 0.02 Thou/mm3 (0.00-0.00); Lymphocytes # (Auto) 1.7 Thou/mm3 (1.0-4.8); Lymphocytes % (Auto) 27 % (10-50); Mean Corpuscular HGB Conc 33.8 g/dl (31.0-37.0); Mean Corpuscular Hemoglobin 32.7 pg (25.0-35.0); Mean Corpuscular Volume 97 fL (80-100); Monocytes # (Auto) 0.5 Thou/mm3 (0.0-0.8); Monocytes % (Auto) 8 % (0-12); Neutrophils # (Auto) 3.8 Thou/mm3 (1.8-7.7); Neutrophils % (Auto) 62 % (37-80); Nucleated Red Blood Cell % 0 /100 WBC (0); Platelet Count 226 Thou/mm3 (140-440); RDW Standard Deviation 51.8 fL (36.4-46.3); Red Blood Count 2.69 Miln/mm3 (4.00-5.20); White Blood Count 6.1 Thou/mm3 (3.6-11.0)
[2024-08-28 10:16] LABS: Hemoglobin 8.8 g/dL (12.0-16.0)
[2024-08-28 10:23] LABS: Folate 20.89 ng/mL (>5.38); Vitamin B12 442 pg/mL (211-911)
[2024-08-28 10:38] LABS: Syphilis Nonreactive (Nonreactive)
[2024-08-28 10:41] LABS: Alanine Aminotransferase < 7 U/L (10-49); Albumin, Serum 3.9 gm/dL (3.5-5.0); Albumin/Globulin Ratio 1.2 (1.2-2.2); Alkaline Phosphatase 59 U/L (46-116); Anion Gap 12 (7-16); Aspartate Amino Transferase 16 U/L (0-34); BUN/Creatinine Ratio 6 Ratio (12-20); Bilirubin,Total < 0.2 mg/dL (0.3-1.2); Blood Urea Nitrogen 39 mg/dL (9-23); Calcium 7.5 mg/dL (8.3-10.6); Calcium (Corrected) 7.6 mg/dL (8.5-10.1); Carbon Dioxide 27.3 mMol/L (20.0-31.0); Chloride 99 mMol/L (98-107); Creatinine (Component) 6.2 mg/dL (0.6-1.3); Estimated Creatinine Clearance 15.9 mL/min (>60); Globulin 3.2 gm/dL (2.3-3.5); Glucose 145 mg/dL (74-106); Magnesium 1.9 mg/dL (1.6-2.6); Osmolality,Calculated 288 (275-295); Potassium 3.3 mMol/L (3.4-5.1); Sodium 138 mMol/L (136-145); Thyroid Stimulating Hormone 4.47 uIU/mL (0.55-4.78); Total Protein 7.1 gm/dL (5.7-8.2); eGFR 8 See Note
[2024-08-28] MEDS: AMOXICILLIN/POT CLAV 500 MG TABLET PO ×2 (12:21→17:52)
[2024-08-28] MEDS: POTASSIUM CHLORIDE 20 mEq TABCR PO (12:21)
[2024-08-28] MEDS: levETIRAcetam 250 MG TABLET 500 MG PO ×2 (12:22→21:04)
--- NOTE | 2024-08-28 13:17 | PD.RESPRO ---
Documentation for date of: 08/28/24 Subjective Subjective Interval history: Patient was seen and examined at bedside this morning. No acute overnight events. Patient got hemodialysis today and tolerated well. Patient's WBCs have not uptrending, she has not spiked any fevers. Patient's UA was clean and there was no bacteria. Will continue patient on her Keppra and Augmentin at this time. Patient was able to respond to her name today and she knew it was since she got hemodialysis. She says that she did not have any other issues just to feeling of dizziness probably from her otitis externa. Spoke with patient's daughter who stated patient is in fact disoriented at baseline and that her concern was that she was having more hallucinations about people following her, but given her improvement she states patient may be back at baseline. Will monitor for additional 24 hours to assess for neurological status and possible discharge in the next 24 to 48 hours. Exam Vital Signs Temp Pulse Resp BP Pulse Ox O2 Del Method 96.9 F 89 16 140/66 H 96 Room Air 08/28/24 12:08/28/24 12:08/28/24 12:08/28/24 12:08/28/24 12:08/28/24 12:26 Narrative Exam General: A/O x2 (name and day), no acute distress, well-nourished, well-developed Eyes: PERRL, EOMI. Anicteric, vision grossly intact. Ears: No ear pain, no ear discharge, Hearing grossly intact. Nose: No nasal discharge. Mouth/Throat: Dry mucous membranes, no redness, no lesions. Neck: Neck supple, non-tender, no cervical lymphadenopathy. Lungs: Clear JAILYN to auscultation and percussion, No accessory muscle use. Cardio: Normal S1/S2, regular rhythm, no murmurs, no JVD. Abdomen: Soft, non-tender, no palpable masses, peristalsis present, no guarding or rebound. Extremities: Symmetrical, no significant deformities, no peripheral edema , non-tender, peripheral pulses presents. Skin: No rashes, no lesions, warm to touch. Neuro: No focal neurological deficits. motor and sensory intact, following commands Psych: Cooperative, appropriate mood and effect. Objective Labs 08/29/24 04:30 08/29/24 04:30 Labs: Laboratory Results - last 24 hr 08/27/24 08/27/24 08/28/24 23:30 23:46 03:30 WBC 7.7 RBC 2.74 L Hgb 8.9 L Hct 26.6 L MCV 97 MCH 32.5 MCHC 33.5 RDW Std Deviation 52.3 H Plt Count 238 Neut % (Auto) 71 Lymph % (Auto) 16 [place] % (Auto) 11 Eos % (Auto) 2 Baso % (Auto) 1 Neut # (Auto) 5.5 Lymph # (Auto) 1.2 [place] # (Auto) 0.8 Eos # (Auto) 0.2 Baso # (Auto) 0.0 Immature Gran # (Auto) 0.03 H Absolute Nucleated RBC 0.00 Immature Gran % 0 Nucleated RBC % 0 Sodium 140 Potassium 3.4 D Chloride 96 L Carbon Dioxide 27.6 Anion Gap 16 BUN 59 H Creatinine 9.6 H* D Estim Creat Clear Calc 10.3 L eGFR 4 L* BUN/Creatinine Ratio 6 L Glucose 154 H Calculated Osmolality 298 H Lactic Acid 2.6 H 1.0 Calcium 7.4 L Corrected Calcium 7.4 L Magnesium Total Bilirubin 0.2 L AST 15 ALT 7 L Alkaline Phosphatase 57 Troponin I 0.032 B-Natriuretic Peptide 226 H Total Protein 7.4 Albumin 4.1 Globulin 3.3 Albumin/Globulin Ratio 1.2 Vitamin B12 Folate Procalcitonin 0.25 TSH Ur Collection Type Clean Catch Urine Color Lt-Yellow Urine Clarity Clear Urine pH 6.5 Ur Specific [place] 1.018 Urine Protein 1+ A Urine Glucose (UA) Negative Urine Ketones Negative Urine Blood Trace Urine Nitrite Negative Urine Bilirubin Negative Urine Urobilinogen (Auto) 2.0 Ur Leukocyte Esterase Positive Urine RBC < 1 Urine WBC 9 H Ur Squamous Epith Cells 3 Urine Bacteria None Hyaline Casts < 1 Urine Opiates Screen Negative Urine Fentanyl Screen Negative Ur Barbiturates Screen Negative U Amphetamin/Meth Scrn Negative U Benzodiazepines Scrn Negative U Cocaine Metab Screen Negative U Marijuana (THC) Screen Negative Syphilis Serology 08/28/24 09:24 WBC 6.1 RBC 2.69 L Hgb 8.8 L Hct 26.0 L MCV 97 MCH 32.7 MCHC 33.8 RDW Std Deviation 51.8 H Plt Count 226 Neut % (Auto) 62 Lymph % (Auto) 27 [place] % (Auto) 8 Eos % (Auto) 3 Baso % (Auto) 0 Neut # (Auto) 3.8 Lymph # (Auto) 1.7 [place] # (Auto) 0.5 Eos # (Auto) 0.2 Baso # (Auto) 0.0 Immature Gran # (Auto) 0.02 H Absolute Nucleated RBC 0.00 Immature Gran % 0 Nucleated RBC % 0 Sodium 138 Potassium 3.3 L Chloride 99 Carbon Dioxide 27.3 Anion Gap 12 BUN 39 H Creatinine 6.2 H* D Estim Creat Clear Calc 15.9 L eGFR 8 L* BUN/Creatinine Ratio 6 L Glucose 145 H Calculated Osmolality 288 Lactic Acid Calcium 7.5 L Corrected Calcium 7.6 L Magnesium 1.9 Total Bilirubin < 0.2 L AST 16 ALT < 7 L Alkaline Phosphatase 59 Troponin I B-Natriuretic Peptide Total Protein 7.1 Albumin 3.9 Globulin 3.2 Albumin/Globulin Ratio 1.2 Vitamin B12 442 Folate 20.89 Procalcitonin TSH 4.47 Ur Collection Type Urine Color Urine Clarity Urine pH Ur Specific [place] Urine Protein Urine Glucose (UA) Urine Ketones Urine Blood Urine Nitrite Urine Bilirubin Urine Urobilinogen (Auto) Ur Leukocyte Esterase Urine RBC Urine WBC Ur Squamous Epith Cells Urine Bacteria Hyaline Casts Urine Opiates Screen Urine Fentanyl Screen Ur Barbiturates Screen U Amphetamin/Meth Scrn U Benzodiazepines Scrn U Cocaine Metab Screen U Marijuana (THC) Screen Syphilis Serology Nonreactive Quality Measures Quality Measures VTE prophylaxis and none Assessment & Plan Assessment Current Active Medications: Generic Name Dose Route Start Last Admin Trade Name Freq PRN Reason Stop Dose Admin Acetaminophen 650 mg 08/28/24 01:50 08/28/24 08:37 Acetaminophen 325 Mg Tablet PO 09/27/24 01:49 650 mg Q6H PRN Administration Fever >100.3 or pain 1-3 Amoxicillin/Clavulanate Potassium 500 mg 08/28/24 10:00 08/28/24 12:21 Amoxicillin/Pot Clav 500 Mg Tablet PO 09/04/24 08:59 500 mg BIDWM RONY Administration Dextrose 25 ml 08/28/24 01:53 Dextrose 50%-Water Inj 50 Ml Syringe IV 09/27/24 01:52 Q15MIN PRN BG 50-70 responsive npo pt Dextrose 50 ml 08/28/24 01:53 Dextrose 50%-Water Inj 50 Ml Syringe IV 09/27/24 01:52 Q15MIN PRN BG <50 OR BG <70 & pt unresponsive Glucagon 1 mg 08/28/24 01:53 Glucagon Inj 1 Mg Vial IM Q15MIN PRN BG <70, and no IV access Heparin Sodium (Porcine) 5,000 unit 08/28/24 06:00 08/28/24 13:14 Heparin Sod Inj 5000 Unit/Ml Vial SC 09/11/24 05:59 5,000 unit Q8HR RONY Administration Insulin Human Lispro 0 unit 08/28/24 07:30 08/28/24 12:17 Insulin Lispro (Admelog) 1 Unit/0.01 Ml Unit SC 09/27/24 07:29 Not Given AC ROYN Protocol Levetiracetam 500 mg 08/28/24 09:00 08/28/24 12:22 Levetiracetam 250 Mg Tablet PO 09/27/24 08:59 500 mg BID RONY Administration Levothyroxine Sodium 25 mcg 08/28/24 06:00 08/28/24 05:09 Levothyroxine Sodium 25 Mcg Tablet PO 09/27/24 05:59 25 mcg ACBR RONY Administration Ondansetron HCl 4 mg 08/28/24 01:50 Ondansetron Inj 2 Mg/Ml Inj 2 Ml IV 09/27/24 01:49 Q6H PRN NAUSEA OR VOMITING Protocol Plan 54-year-old female with past medical history of CVA with residual right-sided hemiparesis, seizure disorders, ESRD (HD on ), hypertension, and DM2 was admitted to the hospital on 08/28/2024 due to acute encephalopathy. #Acute encephalopathy, improving #Hx of CVA with residual R side hemiparesis #Hx of seizure disorder Patient was brought in due to altered mental status as per patient's daughter who stated that she was not smoking as his usual. This could be metabolic as patient missed a hemodialysis section versus infectious in the setting of otitis externa and possible UTI versus cognitive issues from previous CVA and seizure Patient improving today was able to follow commands, no her date of in which she was as well as with a what the week it was. Plan: Will continue Keppra Will wait for final urine cultures to rule out infectious Will continue Augmentin for otitis externa #ESRD (HD ) Patient missed hemodialysis section on Sunday Plan: Continue hemodialysis schedule Renally dose medication Avoid nephrotoxic agents Nephrology is consulted, appreciate recommendations #Otitis externa Continue Augmentin #Hx of hypothyroidism Resume home levothyroxine #DM2 A1c on 07/09/2024 was 8.2% Plan: ISS Hypoglycemia protocol ordered #Hx of hypertension Patient's blood pressure has been stable throughout the hospital stay therefore we will not start any antihypertensive medication for now Disposition: Patient admitted to telemetry for acute encephalopathy. possible Dc in 24-48 hrs. Diet: renal GI prophylaxis: not indicated DVT prophylaxis: heparin subcu Code: full code Case disclosed with Attending Dr. Gee Smith PGY1 Attending Provider Attestation/Addendum I reviewed labs, imaging, EKG, home medications and prior available records. Face to face evaluation was performed by me. I have personally examined the patient and discussed assessment and plan with the IM team. I reviewed the resident note and agree with the plan with exceptions as below. Acute encephalopathy, likely multifactorial from delirium from constipation versus hearing impairment versus baseline cognitive impairment/psychiatric disease versus metabolic from uremia versus seizure ESRD on hemodialysis Otitis externa Delirium precautions Consulted nephrology for hemodialysis Continue Augmentin for otitis externa Resumed home [facility]
--- NOTE | 2024-08-28 14:31 | PC.SS ---
SS met with pt to discuss d/c plan.? Pt is alert but had difficulty speaking.? Pt was admitted for AMS.? Pt was alert to date, place, address, and .? Pt was able to name her son, Ilya Ivey medical decision maker.? SS spoke to Ilya by phone regarding patient's d/c plan.? Pt resides with son.? Pt ambulates utilizing a front wheel walker.? Pt is ok with ADLs.? ? Pt is established with [facility] with Dr. Hay and her dialysis chair time is Sunday at 8am.? Pt utilizes [employer] for transportation.? Pt followed up with PCP 3 weeks ago. SS provided verbal d/c options for home or SNF.? Son refused SNF and is requesting for pt to return home?upon dc.? Son, Ilya will provide transportation. DC Plan:? Return home Next of Kin:? Ilya Ivey, son, phone# [phone] PCP:? Radha Mane at [facility] Address:? Correct on facesheet
--- NOTE | 2024-08-28 15:39 | PC.SS ---
Addendum entered by Ele Vieyra 09/02/24 08:43: Walkers The diagnosis creates mobility limitation that significantly impairs ability to participate in the patients activities of daily living either in their entirety, or in a reasonable time frame. Also the patient is able to safely use the walker and the patient?s mobility is sufficiently resolved with the use of the walker and cane has been ruled out. Original Note: Bedside Commode Patient is physically incapable of utilizing regular toilet facilities because his or her diagnosis confines the patient to a single room. Patient is confined to a single level, and there is no toilet on that level; patient cannot access the toilet facilities in a timely manner due to lack of ambulation.
--- NOTE | 2024-08-28 15:57 | PC.SS ---
SS received phone call from LAURY Tovar who is recommending a bedside commode. SS has sent DME order for commode using [employer]. SS spoke to patient's sonKwaku who explained the rollator walker pt has at home was purchased privately. Per son, pt has received a walker within 5 years. SS received call from [facility] pt has been established with them. Per Rachel at [facility], pt does qualify for new rollator walker. SS has sent DME order for rollator walker on [employer]. Son is aware. From [facility]: [facility] - [address] [place] [address] DME - Walkers Booked elsewhere Considering 08/28/2024 15:56 08/28/2024 15:55 Other ?(2) [facility] [place] [address] DME - Walkers Booked elsewhere 08/28/2024 15:55 ?(1) [facility] [id number] [facility] [address] [place] [address] DME - Walkers Booked elsewhere No 08/28/2024 16:01 08/28/2024 15:55 Insurance out of network ?(2) [facility] - [id number] [place] [address] DME - Walkers Booked Yes 08/28/2024 15:57 08/28/2024 15:55 We can accept this patient. Thank you for your referral ?(1) [facility] [id number] [facility] [address] [place] [address] DME - Walkers Booked elsewhere 08/28/2024 15:55 ?(1) [facility], [place] [address] DME - Walkers Booked elsewhere
[2024-08-29] VITALS (12 sets, daily range): BP systolic 115–168; BP diastolic 52–93; PULSE 70–104; RESP 10–96; TEMP 35.9–36.6; O2SAT 94–100
[2024-08-29] MEDS: LEVOTHYROXINE SODIUM 25 MCG TABLET PO (05:06)
[2024-08-29] MEDS: HEPARIN SOD INJ 5000 UNIT/ML VIAL SC ×3 (05:07→21:04)
[2024-08-29 06:39] LABS: Basophils % (Auto) 1 % (0-2.5); Eosinophils # (Auto) 0.2 Thou/mm3 (0.0-0.5); Eosinophils % (Auto) 4 % (0-10); Hematocrit 27.5 % (36.0-46.0); Hemoglobin 9.3 g/dL (12.0-16.0); Immature Granulocytes % (Auto) 0 % (0-0); Immature Granulocytes Auto 0.01 Thou/mm3 (0.00-0.00); Lymphocytes # (Auto) 1.8 Thou/mm3 (1.0-4.8); Lymphocytes % (Auto) 37 % (10-50); Mean Corpuscular HGB Conc 33.8 g/dl (31.0-37.0); Mean Corpuscular Hemoglobin 32.6 pg (25.0-35.0); Mean Corpuscular Volume 97 fL (80-100); Monocytes # (Auto) 0.6 Thou/mm3 (0.0-0.8); Monocytes % (Auto) 13 % (0-12); Neutrophils # (Auto) 2.2 Thou/mm3 (1.8-7.7); Neutrophils % (Auto) 46 % (37-80); Nucleated Red Blood Cell % 0 /100 WBC (0); Platelet Count 239 Thou/mm3 (140-440); RDW Standard Deviation 51.8 fL (36.4-46.3); Red Blood Count 2.85 Miln/mm3 (4.00-5.20); White Blood Count 4.8 Thou/mm3 (3.6-11.0)
[2024-08-29 07:37] LABS: Alanine Aminotransferase < 7 U/L (10-49); Albumin, Serum 3.9 gm/dL (3.5-5.0); Albumin/Globulin Ratio 1.1 (1.2-2.2); Alkaline Phosphatase 56 U/L (46-116); Anion Gap 14 (7-16); Aspartate Amino Transferase 14 U/L (0-34); BUN/Creatinine Ratio 5 Ratio (12-20); Bilirubin,Total 0.2 mg/dL (0.3-1.2); Blood Urea Nitrogen 36 mg/dL (9-23); Calcium 7.8 mg/dL (8.3-10.6); Calcium (Corrected) 7.9 mg/dL (8.5-10.1); Carbon Dioxide 29.2 mMol/L (20.0-31.0); Chloride 98 mMol/L (98-107); Creatinine (Component) 6.9 mg/dL (0.6-1.3); Estimated Creatinine Clearance 14.3 mL/min (>60); Globulin 3.5 gm/dL (2.3-3.5); Glucose 116 mg/dL (74-106); Magnesium 1.9 mg/dL (1.6-2.6); Osmolality,Calculated 290 (275-295); Phosphorous 5.4 mg/dL (2.4-5.1); Potassium 4.3 mMol/L (3.4-5.1); Sodium 141 mMol/L (136-145); Total Protein 7.4 gm/dL (5.7-8.2); eGFR 7 See Note
[2024-08-29] MEDS: AMOXICILLIN/POT CLAV 500 MG TABLET PO ×2 (08:40→17:10)
[2024-08-29] MEDS: EPOETIN ALFA INJ 1,000 UNIT/0.05 ML UNIT 10000 UNIT SC (08:41)
[2024-08-29] MEDS: levETIRAcetam 250 MG TABLET 500 MG PO ×2 (08:41→20:32)
--- NOTE | 2024-08-29 08:58 | CHAP ---
Responded to Rapid Response (08:58). No family present, but said a silent prayer outside of room.
[2024-08-29] MEDS: ACETAMINOPHEN 325 MG TABLET 650 MG PO (09:08)
[2024-08-29] MEDS: CIPROFLOXACIN/DEXAM OTIC SOL 7.5 ML BTL 3 DROP RIGHT EAR ×2 (10:48→20:33)
--- NOTE | 2024-08-29 11:00 | PC.SS ---
SS follow up note; urine cultures pending at the time. Possible discharge home in 1-2 days.
--- NOTE | 2024-08-29 12:16 | EKG_ITS ---
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 : 1970 Requested By: Ramon Flynn Order Number: [id number] Reading MD: Ramon Flynn Measurements Intervals [place] Rate: 78 P: 43 IN: 184 QRS: -46 QRSD: 106 T: 70 QT: 441 QTc: 505 Interpretive Statements SINUS RHYTHM LEFT ANTERIOR FASCICULAR BLOCK POSSIBLE ANTERIOR MYOCARDIAL INFARCTION , OF INDETERMINATE AGE MODERATE T-WAVE ABNORMALITY, CONSIDER LATERAL ISCHEMIA Compared to ECG 08/26/2024 15:31:40 Left anterior fascicular block now present Left-axis deviation no longer present Myocardial infarct finding still present T-wave abnormality still present Possible ischemia still present /store/S0/[id number]
--- NOTE | 2024-08-29 14:29 | ESPR_ITS ---
Documentation for date of: 08/29/24 Subjective Subjective Interval history: Overnight, no acute events reported. Patient had 2 rapid responses this morning, first for new onset blurry vision and numbness throughout her extremities as reported by patient, and second for tachycardia. Patient's baseline is unreliable, however most likely due to hospital delirium from hearing loss. Will pursue MRI brain to see if any acute changes noted. Patient continues to have pain in her right ear, and will start ciprofloxacin eardrops along with her Augmentin. Patient otherwise remained calm after rapid responses. EKG and rapid response showed normal sinus rhythm with a heart rate of 78. Physical therapy recommended patient to go home with a 3 in 1 commode. Exam Vital Signs Temp Pulse Resp BP Pulse Ox O2 Del Method 97.0 F 72 10 L 147/62 H 98 Room Air 08/29/24 11:57 08/29/24 11:57 08/29/24 11:57 08/29/24 11:57 08/29/24 11:57 08/29/24 11:57 Narrative Exam General Appearance: Pt in mild acute distress laying in bed. Well-nourished and well-developed. HEENT: NC/AT, no scleral icterus, no conjunctival pallor, MMM Lungs: CTAB, no wheezes or crackles appreciated CVS: RRR, S1/S2 heard, no murmurs or rubs appreciated ABD: Soft, non-tender, non-distended, BS + in all 4 quadrants EXT: no deformity/edema/lesions/cyanosis/clubbing, radial pulses 2+ BL, DP pulses 2 + BL SKIN: Skin exam normal without any rashes. Neuro: A&O x 2, able to follow some commands, limited due to hearing loss. No gross neurological deficits. Motor and sensory grossly intact in B/L UL and LL. Psych: Appropriate mood and affect Objective Labs 08/30/24 05:08 08/30/24 05:08 Labs: Laboratory Results - last 24 hr 08/29/24 04:30 WBC 4.8 RBC 2.85 L Hgb 9.3 L Hct 27.5 L MCV 97 MCH 32.6 MCHC 33.8 RDW Std Deviation 51.8 H Plt Count 239 Neut % (Auto) 46 Lymph % (Auto) 37 [place] % (Auto) 13 H Eos % (Auto) 4 Baso % (Auto) 1 Neut # (Auto) 2.2 Lymph # (Auto) 1.8 [place] # (Auto) 0.6 Eos # (Auto) 0.2 Baso # (Auto) 0.0 Immature Gran # (Auto) 0.01 H Absolute Nucleated RBC 0.00 Immature Gran % 0 Nucleated RBC % 0 Sodium 141 Potassium 4.3 D Chloride 98 Carbon Dioxide 29.2 Anion Gap 14 BUN 36 H Creatinine 6.9 H* D Estim Creat Clear Calc 14.3 L eGFR 7 L* BUN/Creatinine Ratio 5 L Glucose 116 H Calculated Osmolality 290 Calcium 7.8 L Corrected Calcium 7.9 L Phosphorus 5.4 H Magnesium 1.9 Total Bilirubin 0.2 L AST 14 ALT < 7 L Alkaline Phosphatase 56 Total Protein 7.4 Albumin 3.9 Globulin 3.5 Albumin/Globulin Ratio 1.1 L Quality Measures Quality Measures VTE prophylaxis and none Assessment & Plan Assessment Current Active Medications: Generic Name Dose Route Start Last Admin Trade Name Freq PRN Reason Stop Dose Admin Acetaminophen 650 mg 08/28/24 01:50 08/29/24 09:08 Acetaminophen 325 Mg Tablet PO 09/27/24 01:49 650 mg Q6H PRN Administration Fever >100.3 or pain 1-3 Amoxicillin/Clavulanate Potassium 500 mg 08/28/24 10:00 08/29/24 08:40 Amoxicillin/Pot Clav 500 Mg Tablet PO 09/04/24 08:59 500 mg BIDWM RONY Administration Ciprofloxacin/Dexamethasone 3 drop 08/29/24 09:00 08/29/24 10:48 Ciprofloxacin/Dexam Otic Katerina 7.5 Ml Btl RIGHT EAR 09/28/24 08:59 3 drops BID RONY Administration Dextrose 25 ml 08/28/24 01:53 Dextrose 50%-Water Inj 50 Ml Syringe IV 09/27/24 01:52 Q15MIN PRN BG 50-70 responsive npo pt Dextrose 50 ml 08/28/24 01:53 Dextrose 50%-Water Inj 50 Ml Syringe IV 09/27/24 01:52 Q15MIN PRN BG <50 OR BG <70 & pt unresponsive Glucagon 1 mg 08/28/24 01:53 Glucagon Inj 1 Mg Vial IM Q15MIN PRN BG <70, and no IV access Heparin Sodium (Porcine) 5,000 unit 08/28/24 06:00 08/29/24 05:07 Heparin Sod Inj 5000 Unit/Ml Vial SC 09/11/24 05:59 5,000 unit Q8HR RONY Administration Insulin Human Lispro 0 unit 08/28/24 07:30 08/29/24 11:34 Insulin Lispro (Admelog) 1 Unit/0.01 Ml Unit SC 09/27/24 07:29 Not Given AC RONY Protocol Levetiracetam 500 mg 08/28/24 09:00 08/29/24 08:41 Levetiracetam 250 Mg Tablet PO 09/27/24 08:59 500 mg BID RONY Administration Levothyroxine Sodium 25 mcg 08/28/24 06:00 08/29/24 05:06 Levothyroxine Sodium 25 Mcg Tablet PO 09/27/24 05:59 25 mcg ACBR RONY Administration Ondansetron HCl 4 mg 08/28/24 01:50 Ondansetron Inj 2 Mg/Ml Inj 2 Ml IV 09/27/24 01:49 Q6H PRN NAUSEA OR VOMITING Protocol Plan 54-year-old female with past medical history of CVA with residual right-sided hemiparesis, seizure disorders, ESRD (HD on ), hypertension, and DM2 was admitted to the hospital on 08/28/2024 due to acute encephalopathy. #Acute encephalopathy, improving #Hx of CVA with residual R side hemiparesis #Hx of seizure disorder Patient was brought in due to altered mental status as per patient's daughter who stated that she was not smoking as his usual. This could be metabolic as patient missed a hemodialysis section versus infectious in the setting of otitis externa and possible UTI versus cognitive issues from previous CVA and seizure Patient improving today was able to follow commands, no her date of in which she was as well as with a what the week it was. Plan: Will continue Keppra Will wait for final urine cultures to rule out infectious Will continue Augmentin and ciprofloxacin eardrops for otitis externa Ordered MRI brain to assess for any acute changes #ESRD (HD ) Patient missed hemodialysis section on Sunday Plan: Continue hemodialysis schedule Renally dose medication Avoid nephrotoxic agents Nephrology is consulted, appreciate recommendations #Otitis externa Continue Augmentin and ciprofloxacin eardrops #Hx of hypothyroidism Resume home levothyroxine #DM2 A1c on 07/09/2024 was 8.2% Plan: ISS Hypoglycemia protocol ordered #Hx of hypertension Patient's blood pressure has been stable throughout the hospital stay therefore we will not start any antihypertensive medication for now Disposition: Patient admitted to telemetry for acute encephalopathy. possible Dc in 24-48 hrs. Diet: renal GI prophylaxis: not indicated DVT prophylaxis: heparin subcu Code: full code Patient's plan and care discussed with my attending, Dr. Gee Farrell MD PGY-2 Attending Provider Attestation/Addendum I reviewed labs, imaging, EKG, home medications and prior available records. Face to face evaluation was performed by me. I have personally examined the patient and discussed assessment and plan with the IM team. I reviewed the resident note and agree with the plan with exceptions as below. Acute encephalopathy, likely multifactorial from delirium from constipation versus hearing impairment versus baseline cognitive impairment/psychiatric disease versus metabolic from uremia versus seizure ESRD on hemodialysis Otitis externa Rapid response was called in the morning of 08/29 for change in mental status. Likely delirium in the setting of severe constipation versus pain versus hearing impairment. Ordered brain MRI Delirium precautions Continue hemodialysis per nephrology recommendations Continue Augmentin for otitis externa Resumed home [facility] PT recommended 3 in 1 commode
[2024-08-29] MEDS: INSULIN LISPRO (AdmeLOG) 1 UNIT/0.01 ML UNIT SC (17:10)
[2024-08-30] VITALS (25 sets, daily range): BP systolic 96–195; BP diastolic 43–88; PULSE 65–91; RESP 15–25; TEMP 35.4–36.5; O2SAT 94–100; BMI 35.2
--- NOTE | 2024-08-30 | XR_ITS ---
Examination: MRI brain without intravenous contrast. Date and time of exam: August 30, 2024, 0718 hours Comparison October 31, 2021 INDICATIONS: Onset altered mental status August 27, 2024, new onset blurred vision and weakness throughout the extremities beginning yesterday, history stroke with residual right-sided hemiparesis on clinical examination Technique: Multiple axial and sagittal images of the brain obtained. Siemens high-resolution 1.5 Tasneem short bore scanners utilized. Sagittal sections, T1-weighted, TR 500, TE 14, are performed. Axial sections proton-density and T2-weighted have been obtained. Inversion recovery axial images, TR 9, 260, TE 111, TI 2500. Diffusion weighted images, axial sections, TR 4800, TE 128, B value 1000 Axial sections, ADC map, TR 4800, TE 128 Findings: Enlargement of the sella turcica is not present. The optic chiasm and infundibular are not remarkable. Prepontine and interpeduncular cisterns are not enlarged. There is no localized enlargement of the medulla or melchor. Fourth ventricle and cerebellar tonsils appear normal in position. No subacute area of hemorrhage density is seen. Mass in the cerebellopontine angle region is not evident. Globes symmetrical. Orbital musculature including medial lateral rectus muscles do not exhibit abnormality. Diffusion-weighted images demonstrate 2 mm focus restricted diffusion left frontal lobe diffusion image 15 which may contain signal deficit on the ADC map Increased white matter signal evident, large old infarct left temporal left occipital left posterior parietal lobe, old infarcts right cerebellar hemisphere Mass effect upon the ventricular system is not identified. Impression: Large old infarct left temporal left occipital left posterior parietal lobe Subtle 2 mm focus restricted diffusion left frontal lobe, diffusion image 15, which may contain signal deficit on the ADC map, the appearance should be clinically correlated by a neurologist for small acute infarct at this level
[2024-08-30] MEDS: LEVOTHYROXINE SODIUM 25 MCG TABLET PO (05:11)
[2024-08-30] MEDS: HEPARIN SOD INJ 5000 UNIT/ML VIAL SC ×3 (05:11→21:33)
[2024-08-30 06:10] LABS: Basophils % (Auto) 1 % (0-2.5); Eosinophils # (Auto) 0.2 Thou/mm3 (0.0-0.5); Eosinophils % (Auto) 3 % (0-10); Hematocrit 28.4 % (36.0-46.0); Hemoglobin 9.5 g/dL (12.0-16.0); Immature Granulocytes % (Auto) 0 % (0-0); Immature Granulocytes Auto 0.01 Thou/mm3 (0.00-0.00); Lymphocytes # (Auto) 2.1 Thou/mm3 (1.0-4.8); Lymphocytes % (Auto) 36 % (10-50); Mean Corpuscular HGB Conc 33.5 g/dl (31.0-37.0); Mean Corpuscular Hemoglobin 32.6 pg (25.0-35.0); Mean Corpuscular Volume 98 fL (80-100); Monocytes # (Auto) 0.7 Thou/mm3 (0.0-0.8); Monocytes % (Auto) 11 % (0-12); Neutrophils # (Auto) 2.9 Thou/mm3 (1.8-7.7); Neutrophils % (Auto) 49 % (37-80); Nucleated Red Blood Cell % 0 /100 WBC (0); Platelet Count 245 Thou/mm3 (140-440); Red Blood Count 2.91 Miln/mm3 (4.00-5.20); White Blood Count 5.9 Thou/mm3 (3.6-11.0)
[2024-08-30 06:44] LABS: Alanine Aminotransferase < 7 U/L (10-49); Albumin/Globulin Ratio 1.2 (1.2-2.2); Alkaline Phosphatase 54 U/L (46-116); Anion Gap 16 (7-16); Aspartate Amino Transferase < 10 U/L (0-34); BUN/Creatinine Ratio 7 Ratio (12-20); Bilirubin,Total < 0.2 mg/dL (0.3-1.2); Blood Urea Nitrogen 54 mg/dL (9-23); Calcium 7.7 mg/dL (8.3-10.6); Calcium (Corrected) 7.7 mg/dL (8.5-10.1); Carbon Dioxide 25.1 mMol/L (20.0-31.0); Chloride 99 mMol/L (98-107); Creatinine (Component) 8.2 mg/dL (0.6-1.3); Estimated Creatinine Clearance 12.2 mL/min (>60); Globulin 3.4 gm/dL (2.3-3.5); Glucose 132 mg/dL (74-106); Magnesium 1.9 mg/dL (1.6-2.6); Osmolality,Calculated 296 (275-295); Phosphorous 5.9 mg/dL (2.4-5.1); Potassium 4.6 mMol/L (3.4-5.1); Sodium 140 mMol/L (136-145); Total Protein 7.4 gm/dL (5.7-8.2); eGFR 5 See Note
[2024-08-30] MEDS: hydrALAZINE INJ 20 MG/ML VIAL 10 MG IV (08:15)
[2024-08-30] MEDS: CIPROFLOXACIN/DEXAM OTIC SOL 7.5 ML BTL 3 DROP RIGHT EAR (09:09)
--- NOTE | 2024-08-30 10:30 | PD.RESPRO ---
Documentation for date of: 08/30/24 Subjective Subjective Interval history: Patient was seen at bedside this morning. No acute overnight events. Patient's blood pressure this morning was elevated at 195 systolic blood pressure therefore gave hydralazine IV 10 mg x 1 as patient was getting get hemodialysis today. Given the patient does have a ruptured right tympanic membrane will discontinue patient's ciprofloxacin drops. Patient went for MRI this morning and it did show 2 mm left frontal lobe area that was concerning for small acute infarct therefore consulted neurology and started patient on aspirin and atorvastatin. Patient otherwise states she is doing well and states that her visual deficits have been going on since her CVA in the past. Patient was a little bit anxious today as well therefore gave Versed 1 mg x 1. Exam Vital Signs Temp Pulse Resp BP Pulse Ox O2 Del Method 97.7 F 71 18 195/77 H 99 Room Air 08/30/24 08:00 08/30/24 08:15 08/30/24 08:00 08/30/24 08:15 08/30/24 08:00 08/30/24 08:00 Narrative Exam General: A/O x2 (name and day), no acute distress, well-nourished, well-developed Eyes: PERRL, EOMI. Anicteric, vision grossly intact except for peripheral mildly impaired. Ears: No ear pain, no ear discharge, Hearing mildly impaired and right tympanic membrane ruptured. Nose: No nasal discharge. Mouth/Throat: Dry mucous membranes, no redness, no lesions. Neck: Neck supple, non-tender, no cervical lymphadenopathy. Lungs: Clear JAILYN to auscultation and percussion, No accessory muscle use. Cardio: Normal S1/S2, regular rhythm, no murmurs, no JVD. Abdomen: Soft, non-tender, no palpable masses, peristalsis present, no guarding or rebound. Extremities: Symmetrical, no significant deformities, no peripheral edema , non-tender, peripheral pulses presents. Skin: No rashes, no lesions, warm to touch. Neuro: No focal neurological deficits. motor and sensory intact, following commands, peripheral vision is mildly impaired. Psych: Cooperative, appropriate mood and effect. Objective Labs 08/31/24 05:44 08/31/24 05:44 Labs: Laboratory Results - last 24 hr 08/30/24 05:08 WBC 5.9 RBC 2.91 L Hgb 9.5 L Hct 28.4 L MCV 98 MCH 32.6 MCHC 33.5 RDW Std Deviation 51.0 H Plt Count 245 Neut % (Auto) 49 Lymph % (Auto) 36 [place] % (Auto) 11 Eos % (Auto) 3 Baso % (Auto) 1 Neut # (Auto) 2.9 Lymph # (Auto) 2.1 [place] # (Auto) 0.7 Eos # (Auto) 0.2 Baso # (Auto) 0.0 Immature Gran # (Auto) 0.01 H Absolute Nucleated RBC 0.00 Immature Gran % 0 Nucleated RBC % 0 Sodium 140 Potassium 4.6 Chloride 99 Carbon Dioxide 25.1 Anion Gap 16 BUN 54 H Creatinine 8.2 H* D Estim Creat Clear Calc 12.2 L eGFR 5 L* BUN/Creatinine Ratio 7 L Glucose 132 H Calculated Osmolality 296 H Calcium 7.7 L Corrected Calcium 7.7 L Phosphorus 5.9 H Magnesium 1.9 Total Bilirubin < 0.2 L AST < 10 ALT < 7 L Alkaline Phosphatase 54 Total Protein 7.4 Albumin 4.0 Globulin 3.4 Albumin/Globulin Ratio 1.2 Quality Measures Quality Measures VTE prophylaxis and none Assessment & Plan Assessment Current Active Medications: Generic Name Dose Route Start Last Admin Trade Name Freq PRN Reason Stop Dose Admin Acetaminophen 650 mg 08/28/24 01:50 08/29/24 09:08 Acetaminophen 325 Mg Tablet PO 09/27/24 01:49 650 mg Q6H PRN Administration Fever >100.3 or pain 1-3 Amoxicillin/Clavulanate Potassium 500 mg 08/28/24 10:00 08/29/24 17:10 Amoxicillin/Pot Clav 500 Mg Tablet PO 09/04/24 08:59 500 mg BIDWM RONY Administration Aspirin 81 mg 08/31/24 09:00 Aspirin Ec 81 Mg Tabec PO 09/30/24 08:59 QDAY RONY Atorvastatin Calcium 40 mg 08/30/24 21:00 Atorvastatin Calcium 20 Mg Tablet PO 09/29/24 20:59 HS RONY Dextrose 25 ml 08/28/24 01:53 Dextrose 50%-Water Inj 50 Ml Syringe IV 09/27/24 01:52 Q15MIN PRN BG 50-70 responsive npo pt Dextrose 50 ml 08/28/24 01:53 Dextrose 50%-Water Inj 50 Ml Syringe IV 09/27/24 01:52 Q15MIN PRN BG <50 OR BG <70 & pt unresponsive Glucagon 1 mg 08/28/24 01:53 Glucagon Inj 1 Mg Vial IM Q15MIN PRN BG <70, and no IV access Heparin Sodium (Porcine) 5,000 unit 08/28/24 06:00 08/30/24 05:11 Heparin Sod Inj 5000 Unit/Ml Vial SC 09/11/24 05:59 5,000 unit Q8HR RONY Administration Insulin Human Lispro 0 unit 08/28/24 07:30 08/30/24 08:17 Insulin Lispro (Admelog) 1 Unit/0.01 Ml Unit SC 09/27/24 07:29 Not Given AC RONY Protocol Levetiracetam 500 mg 08/28/24 09:00 08/29/24 20:32 Levetiracetam 250 Mg Tablet PO 09/27/24 08:59 500 mg BID RONY Administration Levothyroxine Sodium 25 mcg 08/28/24 06:00 08/30/24 05:11 Levothyroxine Sodium 25 Mcg Tablet PO 09/27/24 05:59 25 mcg ACBR RONY Administration Ondansetron HCl 4 mg 08/28/24 01:50 Ondansetron Inj 2 Mg/Ml Inj 2 Ml IV 09/27/24 01:49 Q6H PRN NAUSEA OR VOMITING Protocol Plan 54-year-old female with past medical history of CVA with residual right-sided hemiparesis, seizure disorders, ESRD (HD on ), hypertension, and DM2 was admitted to the hospital on 08/28/2024 due to acute encephalopathy. #Acute encephalopathy #Possible left frontal lobe acute stroke #Hx of CVA with residual R side hemiparesis #Hx of seizure disorder Patient was brought in due to altered mental status as per patient's daughter who stated that she was not smoking as his usual. This could be metabolic as patient missed a hemodialysis section versus infectious in the setting of otitis externa and possible UTI versus cognitive issues from previous CVA and seizure Patient improving today was able to follow commands, no her date of in which she was as well as with a what the week it was. Patient's MRI showed a area of suspicion for acute stroke measuring 2 mm in the left frontal lobe Plan: Start aspirin and atorvastatin Will continue Keppra Will continue Augmentin for otitis externa Neurology consulted, appreciate recommendations #ESRD (HD SUN) Patient missed hemodialysis section on Sunday Plan: Continue hemodialysis schedule Renally dose medication Avoid nephrotoxic agents Nephrology is consulted, appreciate recommendations #Otitis externa #Perforated Right tympanic membrane Continue Augmentin Discontinued ciprofloxacin eardrops given ruptured R TM #Hx of hypothyroidism Resume home levothyroxine #DM2 A1c on 07/09/2024 was 8.2% Plan: ISS Hypoglycemia protocol ordered #Hx of hypertension Patient's blood pressure has been stable throughout the hospital stay therefore we will not start any antihypertensive medication for now Disposition: Patient admitted to telemetry for acute encephalopathy. pending neurology recommendations. Diet: renal GI prophylaxis: not indicated DVT prophylaxis: heparin subcu Code: full code Case disclosed with Attending Dr. Gee Smith PGY1 Attending Provider Attestation/Addendum I reviewed labs, imaging, EKG, home medications and prior available records. Face to face evaluation was performed by me. I have personally examined the patient and discussed assessment and plan with the IM team. I reviewed the resident note and agree with the plan with exceptions as below. Acute encephalopathy, likely multifactorial from delirium from constipation versus hearing impairment versus baseline cognitive impairment/psychiatric disease versus metabolic from uremia versus seizure ESRD on hemodialysis Otitis externa Rapid response was called in the morning of 08/29 for change in mental status. Likely delirium in the setting of severe constipation versus pain versus hearing impairment. Ordered brain MRI: Showed concern for 2 mm infarct. Consulted neurology. Started aspirin and atorvastatin Delirium precautions Continue hemodialysis per nephrology recommendations Continue Augmentin for otitis externa. Avoid eardrops in the setting of tympanic membrane rupture Outpatient follow-up with ENT Resumed home [facility] PT recommended 3 in 1 commode
[2024-08-30] MEDS: MIDAZOLAM INJ 1 MG/ML VIAL 2 ML IV (10:34)
[2024-08-30] MEDS: Aspirin 325 MG TABLET PO (10:35)
[2024-08-30] MEDS: ALBUMIN HUMAN 25% IVPB 25 GM/100 ML BTL IV (14:08)
[2024-08-30] MEDS: AMOXICILLIN/POT CLAV 500 MG TABLET PO (16:49)
[2024-08-30] MEDS: levETIRAcetam 250 MG TABLET 500 MG PO ×2 (16:49→21:32)
[2024-08-30] MEDS: INSULIN LISPRO (AdmeLOG) 1 UNIT/0.01 ML UNIT SC (16:57)
[2024-08-30] MEDS: ATORVASTATIN CALCIUM 20 MG TABLET 40 MG PO (21:33)
--- NOTE | 2024-08-30 23:43 | PD.VCONSULT1 ---
Telemedicine visit statement This visit was conducted with the use of interactive audio and video telecommunications system that permits real time communication between the patient and the provider. Patient's verbal consent for virtual visit was obtained on 08/30/24 at 2343. History of Present Illness History of Present Illness Chief complaint: abnormal MRI brain History of present illness: Patient is a 54-year-old female with a previous neck medical history of CVA with residual right-sided hemiparesis, seizure disorder, end-stage renal disease on dialysis (last session Sunday), hypertension, type 2 diabetes who was brought to the ER 08/27/2024 due to altered mental status. Patient was here the same day due to mild confusion, but after the conversation with son it turned out the patient was at her baseline mentation and she was discharged home. Then she was brought to the ER later, her son reported that the patient was not talking as usual so she brought her in for evaluation again. Patient reports right ear pain and decreased hearing in the right ear. She also missed her dialysis session on Sunday, she reports she missed it due to ear pain and not feeling well.No reported sz recently and is compliant on her meds. Workup in the ER and so far: Initial vitals 113/55, pulse 90, respiratory rate 18, afebrile, saturating well on room air. Labs showed WBC count of 7.7, hemoglobin 8.9, hematocrit 26.6, platelets 238. INR 1.0. Sodium 140, potassium 3.4, BUN 59, creatinine 9.6, EGFR 4, glucose 154, lactic acid 2.6, BNP 226, Pro-Gene 0.25. UA was not significant for signs of UTI. U tox was negative. Imaging: CT, MRI brain: reviewed. Neurology was consulted to evaluate for the abnormal MRI brain. Past Medical History Past Medical History NEUROLOGIC: Positive Neurological Disorders, Cerebrovascular Accident, Seizures and Peripheral Neuropathy CARDIAC: Positive Cardiac Disorders, Coronary Artery Disease, Hypercholesterolemia and Hypertension; Negative Congestive Heart Failure RESPIRATORY: Positive Asthma; Negative Chronic Obstructive Pulmonary Disease (COPD) GASTROINTESTINAL: Positive Gastrointestinal Disorders, Ulcer and Obesity; Negative Hepatitis GENITOURINARY: Positive Genitourinary Disorders, Renal Disease and Dialysis REPRODUCTIVE: Positive Previous Pregnancies; Negative Endometriosis, Pelvic Inflammatory Disease or Uterine Prolapse MUSCULOSKELETAL: Negative Musculoskeletal Disorders ENT: Positive Cataracts and Retinal Detachment ENDOCRINE: Positive Endocrine Disorders, Diabetes Mellitus Type 1, Diabetes Mellitus Type 2, Hyperthyroidism and Hypothyroidism HEMATOLOGIC: Negative Blood Disorders PSYCHO/SOCIAL: Positive Depression and Anxiety OTHER HISTORY: Positive Hospitalization and Falls; Negative Autoimmune Disease, Blood Transfusions, Anesthesia Reactions, Organ Transplant, MRSA, VRSA, Vancomycin-Resistant Enterococci, Clostridium Difficile or Cancer Family History FAMILY HISTORY: Positive Family Cardiac Disorders; Negative Family Psychiatric Problems, Family Respiratory Disorders, Family Gastrointestinal Problems, Family Cancer, Family Surgery or Family Anesthesia Reaction Surgical History SURGICAL: Positive Cardiac Surgery, Vascular Surgery, Eye Surgery and Amputation; Negative Abdominal Surgery or Organ Transplant Social History SMOKING STATUS: Never smoker SECOND HAND EXPOSURE: No SUBSTANCE USE: does not use TeleMedicine ROS Pertinent Review of Systems Systems Reviewed: All systems reviewed, normal except as documented Meds Home Medications and Allergies Home Medications ?Medication ?Instructions ?Recorded ?Confirmed ?Type sertraline 50 mg tablet 50 mg PO QDAY 10/01/18 12/19/21 History allopurinol 300 mg tablet 300 mg PO QDAY 01/01/20 12/19/21 History folic acid 1 mg tablet 1 mg PO QDAY 09/22/20 12/19/21 History calcium acetate(phosphat bind) 667 667 mg PO TID 01/12/21 12/19/21 History mg capsule nifedipine 90 mg tablet,extended 90 mg PO QDAY 01/12/21 12/19/21 History release 24 hr Held on 08/31/24. Instructions: Resume on 09/09/24. hold until follow up with PCP levetiracetam 500 mg tablet 500 mg PO BID 10/31/21 12/19/21 History Allergies Allergy/AdvReac Type Severity Reaction Status Date / Time No Known Allergies Allergy Verified 08/27/24 23:02 Virtual exam Vital Signs Temp Pulse Resp BP Pulse Ox O2 Del Method 96.9 F 81 15 111/60 99 Room Air 08/30/24 20:00 08/30/24 20:00 08/30/24 20:00 08/30/24 20:00 08/30/24 20:00 08/30/24 20:00 Results Labs 08/31/24 05:44 08/31/24 05:44 Labs: Short CBC 08/30/24 Range/Units 05:08 WBC 5.9 (3.6-11.0) Thou/mm3 Hgb 9.5 L (12.0-16.0) g/dL Hct 28.4 L (36.0-46.0) % Plt Count 245 (140-440) Thou/mm3 BMP 08/30/24 05:08 Sodium 140 Potassium 4.6 Chloride 99 Carbon Dioxide 25.1 BUN 54 H Creatinine 8.2 H* D Glucose 132 H Calcium 7.7 L Liver Function 08/30/24 Range/Units 05:08 Total Bilirubin < 0.2 L (0.3-1.2) mg/dL AST < 10 (0-34) U/L ALT < 7 L (10-49) U/L Alkaline Phosphatase 54 (46-116) U/L Albumin 4.0 (3.5-5.0) gm/dL Assessment & Plan Problem List (1) Abnormal brain MRI: Status: Acute Assessment and plan: MRI brain: reported Subtle 2 mm focus restricted diffusion left frontal lobe, diffusion image 15, which may contain signal deficit on the ADC map, the appearance should be clinically correlated by a neurologist for small acute infarct at this level. I independently reviewed MRI images and do not think that the finding in left frontal lobe is significant as there is no consistent correlation with the ADC Map, Noted old infarct left temporal left occipital left posterior parietal lobe. Continue with current meds. no need for any further workup or change in mgt. (2) Seizure disorder: Status: Chronic Assessment and plan: continue with keppra. (3) HTN (hypertension): Status: Chronic Assessment and plan: continue meds (4) End stage renal failure on dialysis: Status: Chronic
[2024-08-31] VITALS (7 sets, daily range): BP systolic 141–162; BP diastolic 61–66; PULSE 64–70; RESP 14–97; TEMP 36.1–36.3; O2SAT 97–99; BMI 35.8
[2024-08-31] MEDS: LEVOTHYROXINE SODIUM 25 MCG TABLET PO (05:44)
[2024-08-31] MEDS: HEPARIN SOD INJ 5000 UNIT/ML VIAL SC (05:44)
[2024-08-31 07:13] LABS: Basophils % (Auto) 1 % (0-2.5); Eosinophils # (Auto) 0.3 Thou/mm3 (0.0-0.5); Eosinophils % (Auto) 4 % (0-10); Hematocrit 27.4 % (36.0-46.0); Hemoglobin 9.2 g/dL (12.0-16.0); Immature Granulocytes % (Auto) 1 % (0-0); Immature Granulocytes Auto 0.03 Thou/mm3 (0.00-0.00); Lymphocytes # (Auto) 2.5 Thou/mm3 (1.0-4.8); Lymphocytes % (Auto) 39 % (10-50); Mean Corpuscular HGB Conc 33.6 g/dl (31.0-37.0); Mean Corpuscular Hemoglobin 32.1 pg (25.0-35.0); Mean Corpuscular Volume 96 fL (80-100); Monocytes # (Auto) 0.7 Thou/mm3 (0.0-0.8); Monocytes % (Auto) 11 % (0-12); Neutrophils # (Auto) 2.8 Thou/mm3 (1.8-7.7); Neutrophils % (Auto) 45 % (37-80); Nucleated Red Blood Cell % 0 /100 WBC (0); Platelet Count 239 Thou/mm3 (140-440); RDW Standard Deviation 50.1 fL (36.4-46.3); Red Blood Count 2.87 Miln/mm3 (4.00-5.20); White Blood Count 6.3 Thou/mm3 (3.6-11.0)
[2024-08-31 07:29] LABS: Alanine Aminotransferase < 7 U/L (10-49); Albumin, Serum 4.2 gm/dL (3.5-5.0); Albumin/Globulin Ratio 1.2 (1.2-2.2); Alkaline Phosphatase 52 U/L (46-116); Anion Gap 13 (7-16); Aspartate Amino Transferase 12 U/L (0-34); BUN/Creatinine Ratio 7 Ratio (12-20); Bilirubin,Total 0.2 mg/dL (0.3-1.2); Blood Urea Nitrogen 35 mg/dL (9-23); Calcium 8.3 mg/dL (8.3-10.6); Calcium (Corrected) 8.3 mg/dL (8.5-10.1); Carbon Dioxide 30.3 mMol/L (20.0-31.0); Chloride 98 mMol/L (98-107); Creatinine (Component) 5.3 mg/dL (0.6-1.3); Estimated Creatinine Clearance 14.1 mL/min (>60); Globulin 3.4 gm/dL (2.3-3.5); Glucose 128 mg/dL (74-106); Osmolality,Calculated 291 (275-295); Phosphorous 4.3 mg/dL (2.4-5.1); Potassium 4.8 mMol/L (3.4-5.1); Sodium 141 mMol/L (136-145); Total Protein 7.6 gm/dL (5.7-8.2); eGFR 9 See Note
[2024-08-31] MEDS: AMOXICILLIN/POT CLAV 500 MG TABLET PO (08:33)
[2024-08-31] MEDS: ASPIRIN EC 81 MG TABEC PO (08:33)
[2024-08-31] MEDS: levETIRAcetam 250 MG TABLET 500 MG PO (08:34)
--- NOTE | 2024-08-31 09:59 | PD.VPROG1 ---
Telemedicine visit statement This visit was conducted with the use of interactive audio and video telecommunications system that permits real time communication between the patient and the provider. Patient's verbal consent for virtual visit was obtained on 08/31/24 at 0959. Documentation for date of: 08/31/24 Virtual exam Vital Signs Temp Pulse Resp BP Pulse Ox O2 Del Method 97.0 F 64 15 149/65 H 97 Room Air 08/31/24 08:00 08/31/24 08:53 08/31/24 08:53 08/31/24 08:00 08/31/24 08:00 08/31/24 08:00 Objective Labs 08/31/24 05:44 08/31/24 05:44 Labs: Laboratory Results - last 24 hr 08/31/24 05:44 WBC 6.3 RBC 2.87 L Hgb 9.2 L Hct 27.4 L MCV 96 MCH 32.1 MCHC 33.6 RDW Std Deviation 50.1 H Plt Count 239 Neut % (Auto) 45 Lymph % (Auto) 39 [place] % (Auto) 11 Eos % (Auto) 4 Baso % (Auto) 1 Neut # (Auto) 2.8 Lymph # (Auto) 2.5 [place] # (Auto) 0.7 Eos # (Auto) 0.3 Baso # (Auto) 0.0 Immature Gran # (Auto) 0.03 H Absolute Nucleated RBC 0.00 Immature Gran % 1 H Nucleated RBC % 0 Sodium 141 Potassium 4.8 Chloride 98 Carbon Dioxide 30.3 Anion Gap 13 BUN 35 H Creatinine 5.3 H* D Estim Creat Clear Calc 14.1 L eGFR 9 L* BUN/Creatinine Ratio 7 L Glucose 128 H Calculated Osmolality 291 Calcium 8.3 Corrected Calcium 8.3 L Phosphorus 4.3 Magnesium 2.0 Total Bilirubin 0.2 L AST 12 ALT < 7 L Alkaline Phosphatase 52 Total Protein 7.6 Albumin 4.2 Globulin 3.4 Albumin/Globulin Ratio 1.2
--- NOTE | 2024-08-31 10:01 | ESDS_ITS ---
Planned Discharge Date 08/31/24 DS: Providers Provider Date of admission: 08/28/24 01:50 Primary care physician: Radha Mane PA-C Admitting Provider: Jocy Arias MD Attending Provider on Admission: Jocy Arias MD Consults: 08/28/24 01:53 Consult to Nephrology Routine Comment: ESRD dialysis t/th/sat, missed tue session Consulting Provider: Za Deshpande 08/28/24 01:54 Referral Physical Therapy Routine Comment: Physician Instructions: 08/30/24 09:55 Consult to Neurology / Tele-Neurology Routine Comment: Consulting Provider: Tony Farrell Attending Provider on DC: Ramon Flynn MD Discharging Provider: Ramon Flynn MD DS: Diagnosis Problem List Completed Was Problem List Reviewed/Reconciled?: Yes Hospital Course Hospital Course Hospital course: 54-year-old female with past medical history of CVA with residual right-sided hemiparesis, seizure disorders, ESRD (HD on //SUN), hypertension, and DM2 was admitted to the hospital on 08/28/2024 due to acute encephalopathy. Initially in the ED patient came in by ambulance with complaints of altered mental status. As per chart review the patient's son stated that she was not conversing as she normally was and that she had missed 1 session of hemodialysis. Patient was admitted to the hospital and had CT did not show any acute infarct or hemorrhage, but did show some unchanged encephalomalacia on the left frontal lobe as well as parietal and temporal lobes. Patient had been previously also seen in the ER due to right ear pain and she was discharged on Augmentin, but she still was complaining of ear pain on admission. Throughout the hospital stay patient received hemodialysis and she was placed again on Augmentin and on her seizure medications. Patient's urine cultures came back negative and she was back to her baseline as per daughter today after admission. Throughout the hospital stay patient started complaining of some visual deficits therefore MRI was done which showed a lesion measuring 2 mm on the left frontal lobe which was suspicious for acute infarct, but neurologist was consulted and stated that did not think it was significant. At this time patient is stable enough to be discharged home. Discharge plan: Please follow-up with your primary care physician in 1 week upon discharge Please follow-up with neurologist in 2 weeks upon discharge Please follow-up with your ENT specialist within 1 to 2 weeks upon discharge to follow-up for ruptured tympanic membrane on the right ear as well as otitis externa. You have been started on aspirin 81 mg daily and atorvastatin 40 mg at bedtime Please finish course of Augmentin that was recently prescribed. Please continue taking all home medications as prescribed. Please come back to the ED if symptoms persist or worsen. Problem list: #Acute encephalopathy #Otitis externa #Perforated Right tympanic membrane #Hx of CVA with residual R side hemiparesis #Hx of seizure disorder #Hx of hypothyroidism #DM2 #Hx of hypertension #ESRD (HD //SUN) Case disclosed with Attending Dr. Gee Smith PGY1 Status at Discharge Overall status at discharge: patient is progressing back to baseline Time Spent with Patient Time attestation: Total time spent providing and/or coordinating discharge services:>35 min Time spent: Greater than 30 minutes Exam Vital Signs Temp Pulse Resp BP Pulse Ox O2 Del Method 97.0 F 64 15 149/65 H 97 Room Air 08/31/24 08:00 08/31/24 08:53 08/31/24 08:53 08/31/24 08:00 08/31/24 08:00 08/31/24 08:00 Narrative Exam General: A/O x2 (name and day), no acute distress, well-nourished, well- developed Eyes: PERRL, EOMI. Anicteric, vision grossly intact except for peripheral mildly impaired. Ears: No ear pain, no ear discharge, Hearing mildly impaired and right tympanic membrane ruptured. Nose: No nasal discharge. Mouth/Throat: Dry mucous membranes, no redness, no lesions. Neck: Neck supple, non-tender, no cervical lymphadenopathy. Lungs: Clear JAILYN to auscultation and percussion, No accessory muscle use. Cardio: Normal S1/S2, regular rhythm, no murmurs, no JVD. Abdomen: Soft, non-tender, no palpable masses, peristalsis present, no guarding or rebound. Extremities: Symmetrical, no significant deformities, no peripheral edema , non-tender, peripheral pulses presents. Skin: No rashes, no lesions, warm to touch. Neuro: No focal neurological deficits. motor and sensory intact, following commands, peripheral vision is mildly impaired. Psych: Cooperative, appropriate mood and effect. Discharge Plan Plan Patient Disposition: HOME (Self Care) Patient condition on transfer: Stable Care Plan Goals: Please follow-up with your primary care physician in 1 week upon discharge Please follow-up with neurologist in 2 weeks upon discharge Please follow-up with your ENT specialist within 1 to 2 weeks upon discharge to follow-up for ruptured tympanic membrane on the right ear as well as otitis externa. You have been started on aspirin 81 mg daily and atorvastatin 40 mg at bedtime Please finish course of Augmentin that was recently prescribed. Please continue taking all home medications as prescribed. Please come back to the ED if symptoms persist or worsen. Prescriptions/Referrals Prescriptions/Med Rec: New aspirin [Adult Low Dose Aspirin] 81 mg tablet,delayed release (DR/EC) 81 mg PO QDAY Qty: 30 0RF atorvastatin 40 mg tablet 40 mg PO QPM Qty: 30 0RF Continued calcium acetate(phosphat bind) 667 mg capsule 667 mg PO TID Patient Comments: TAKE ONE CAPSULE BY MOUTH THREE TIMES DAILY Rx Instructions: with meals sertraline 50 mg Tablet 50 mg PO QDAY allopurinol 300 mg Tablet 300 mg PO QDAY folic acid 1 mg Tablet 1 mg PO QDAY levetiracetam 500 mg Tablet 500 mg PO BID insulin glargine [Lantus Solostar U-100 Insulin] 100 unit/mL (3 mL) insulin pen 10 unit SUBCUT QPM Qty: 15 0RF Patient Comments: INJECT 90 UNITS SUBCUTANEOUSLY TWICE DAILY hydralazine 100 mg tablet 100 mg PO TID Qty: 90 0RF lisinopril 40 mg Tablet 40 mg PO BID Qty: 60 0RF levothyroxine 25 mcg Tablet 25 mcg PO ACBR Qty: 30 0RF amoxicillin-pot clavulanate 875-125 mg tablet 1 tab PO BID Qty: 20 0RF Held nifedipine 90 mg tablet extended release 24hr 90 mg PO QDAY Hold Instructions: Resume on 09/09/24. hold until follow up with PCP Referrals: Radha Mane PA-C [Primary Care Provider] - Patient/Caregiver Discharge Instructions Other Discharge Activity Instructions:: Please follow-up with your primary care physician in 1 week upon discharge Please follow-up with neurologist in 2 weeks upon discharge Please follow-up with your ENT specialist within 1 to 2 weeks upon discharge to follow-up for ruptured tympanic membrane on the right ear as well as otitis externa. You have been started on aspirin 81 mg daily and atorvastatin 40 mg at bedtime Please finish course of Augmentin that was recently prescribed. Please continue taking all home medications as prescribed. Please come back to the ED if symptoms persist or worsen. Education Materials: Ruptured Eardrum Print Language: Japanese Stand Alone Forms: Latony[facility] Award Info., Patient Portal Info Letter Discharge Order Discharge Orders: Discharge (Routine); Ordered 08/31/24 Ordered By: Ryan Smith Quality Discharge Quality Measures VTE prophylaxis MD Attestestation MD Attestation I reviewed labs, imaging, EKG, home medications and prior available records. Face to face evaluation was performed by me. I have personally examined the patient and discussed assessment and plan with the IM team. I reviewed the resident note and agree with the plan with exceptions as below. Acute encephalopathy, likely multifactorial from delirium from constipation versus hearing impairment versus baseline cognitive impairment/psychiatric disease versus metabolic from uremia versus seizure ESRD on hemodialysis Otitis externa Rapid response was called in the morning of 08/29 for change in mental status. Likely delirium in the setting of severe constipation versus pain versus hearing impairment. Ordered brain MRI: Showed concern for 2 mm infarct. Consulted neurology. Started aspirin and atorvastatin. Discussed again with neurology: Less likely to be a stroke but will continue aspirin and atorvastatin. Okay to discharge from neurology standpoint. Delirium precautions Continue hemodialysis per nephrology recommendations Continue Augmentin for otitis externa. Avoid eardrops in the setting of tympanic membrane rupture Outpatient follow-up with ENT Resumed home Keppra Continue hydralazine and lisinopril. Held nifedipine. Monitor BP. PT recommended 3 in 1 commode Time spent is 40 minutes. More than 50% of the time was spent on patient education and coordination of care.
--- NOTE | 2024-09-01 07:23 | ESCONSULT_ITS ---
RE: YAYA CABRERA : 1970 DATE OF CONSULTATION: 08/28/2024 REASON FOR REFERRAL: ESRD management. REFERRING PHYSICIAN: Hospitalist HISTORY OF PRESENT ILLNESS: This patient is a 54-year-old -[place] woman with type 2 diabetes, hypertension, CVA x5 with dysarthria and ESRD, on dialysis every Sunday, , and Sunday under Dr. Win at [facility], who was admitted to the hospital last night with altered level of consciousness. The patient has been in and out of confusion at least in the past year. There are times that she is more coherent and other times that she is confused. The patient also had dialysis earlier today. The patient also said that she has pain on her left ear and needs pain medication. PAST MEDICAL HISTORY: ESRD, multiple CVAs, seizure, type 2 diabetes, and hypertension. ALLERGIES: NO KNOWN DRUG ALLERGIES. CURRENT MEDICATIONS: 1. Acetaminophen. 2. Augmentin 500 mg b.i.d. 3. Heparin 5000 units subcutaneously q.8. 4. Levetiracetam 500 mg p.o. b.i.d. 5. Levothyroxine 25 mcg p.o. daily. 6. Zofran. PHYSICAL EXAMINATION: GENERAL: She is more awake and alert. VITAL SIGNS: Blood pressure of 123/51, heart rate of 84, and O2 saturation of 99% on room air. HEENT: Anicteric sclerae. Normocephalic. NECK: Supple. No JVD. CHEST AND LUNGS: Symmetric expansion. Clear breath sounds. CARDIAC: Without murmur. ABDOMEN: Soft and nontender. EXTREMITIES: No edema. LABORATORY DATA: Hemoglobin 8.8, WBC 6100, and platelet count 426,000. Sodium 130, BUN 39, creatinine 6.2, glucose 145, calcium 7.6, and albumin 3.9. Head CT negative for acute hemorrhage, mass defect or midline shift. ASSESSMENT: 1. Acute confusion, which is on and off given her history of 5 cerebrovascular accidents in the past. 2. End-stage renal disease, on dialysis every Sunday, , and Sunday. 3. Hypertension. 4. Diabetes. 5. Anemia of chronic disease. PLAN: The patient had dialysis earlier. About 2 L of fluid was removed. Next dialysis will be on Sunday. I will also start her on Epogen 10,000 units subcutaneously x1. We will continue to monitor her mental status. DT: 21:55:23 TT: 22:42:00 Ref: [id number] - TID: [id number] MTDD
== END 2024-08-31 11:57 | disposition home or self-care (01) | DRG 70 ==
LOC: SERX 08-28 02:01 → SERHOLD 08-28 02:04 → S2NX 08-28 03:51
PROVIDERS: Admitting Provider Student in an Organized Health Care Education/Training Program; Emergency Provider Emergency Medicine; PCP Physician Assistant; Visit Provider Student in an Organized Health Care Education/Training Program
DX: G93.40 Encephalopathy, unspecified (principal); N18.6 End stage renal disease; I12.0 Hypertensive chronic kidney disease with stage 5 chronic kidney disease or end stage renal disease; I69.351 Hemiplegia and hemiparesis following cerebral infarction affecting right dominant side; F05 Delirium due to known physiological condition; E11.22 Type 2 diabetes mellitus with diabetic chronic kidney disease; G40.909 Epilepsy, unspecified, not intractable, without status epilepticus; H60.90 Unspecified otitis externa, unspecified ear; E03.9 Hypothyroidism, unspecified; H72.91 Unspecified perforation of tympanic membrane, right ear; D63.1 Anemia in chronic kidney disease; F41.9 Anxiety disorder, unspecified; G93.89 Other specified disorders of brain; H91.91 Unspecified hearing loss, right ear; Z91.158 Patient's noncompliance with renal dialysis for other reason; Z99.2 Dependence on renal dialysis
CPT/HCPCS: 36415; 70450; 70551; 80053; 80307; 81001; 82607; 82746; 83605; 83735; 83880; 84100; 84145; 84443; 84484; 85025; 86780; 87086; 93005; 97162; 99285; J0360; J1644; J1815; J2250; P9047; Q4081; A9270

== ENCOUNTER 2024-09-04 14:02 | Emergency (ER) | payer MEDICARE, MEDICAID, SELFPAY ==
[2024-09-04] VITALS (8 sets, daily range): BP systolic 107–142; BP diastolic 35–78; PULSE 71–85; RESP 14–18; TEMP 36.6–37.1; O2SAT 96–100; BMI 39.4
--- NOTE | 2024-09-04 15:11 | XR_ITS ---
Examination: AP chest single view TECHNIQUE: AP portable upright chest single view Exam date and time: September 04, 2024, 1646 hours INDICATIONS: Weakness shortness of breath today. FINDINGS: Mild prominence left ventricle Mild elevation right hemidiaphragm. No pneumonia or pulmonary edema IMPRESSION: No pneumonia or pulmonary edema
--- NOTE | 2024-09-04 15:13 | EKG_ITS ---
[facility] Test Date: 2024-09-04 Pat Name: YAYA CABRERA Department: Room: - Gender: Female [employer] Consultant: : 1970 Requested By: Mally Tyler Order Number: [id number] Reading MD: Mally Tyler Measurements Intervals [place] Rate: 71 P: 35 [place]: 195 QRS: -29 QRSD: 110 T: 176 QT: 441 QTc: 482 Interpretive Statements SINUS RHYTHM POSSIBLE ANTERIOR MYOCARDIAL INFARCTION , OF INDETERMINATE AGE [30 ms Q WAVE IN V3/V4, OR R < 0.2 mV IN V4] MODERATE T-WAVE ABNORMALITY, CONSIDER LATERAL ISCHEMIA [-0.1+ mV T-WAVE IN I/aVL/V5/V6] MODERATE T-WAVE ABNORMALITY, CONSIDER INFERIOR ISCHEMIA [-0.1+ mV T-WAVE IN II/aVF] Compared to ECG 08/29/2024 12:22:06 Left anterior fascicular block no longer present Myocardial infarct finding still present T-wave abnormality still present Possible ischemia still present /store/S0/[id number]/ecg/[id number].pdf
--- NOTE | 2024-09-04 15:27 | PD.EDADULT ---
ED General RME/HPI General Chief complaint: Dizziness Stated complaint: WEAKNESS Time Seen by Provider: 09/04/24 14:15 Arrival date/time: 09/04/24 14:02 54-year-old female dialysis patient () presents to the ED with a complaint of generalized weakness, nausea and vomiting. She denies any fever or chills, upper respiratory symptoms, cough, chest pain or shortness of breath, diarrhea or abdominal pain. She is also complaining of right ear pain that has been ongoing for quite some time. Mode of arrival: EMS Limitations: no limitations Related Data Home Medications ?Medication ?Instructions ?Recorded ?Confirmed sertraline 50 mg tablet 50 mg PO QDAY 10/01/18 12/19/21 allopurinol 300 mg tablet 300 mg PO QDAY 01/01/20 12/19/21 folic acid 1 mg tablet 1 mg PO QDAY 09/22/20 12/19/21 calcium acetate(phosphat bind) 667 667 mg PO TID 01/12/21 12/19/21 mg capsule nifedipine 90 mg tablet,extended 90 mg PO QDAY 01/12/21 12/19/21 release 24 hr Held on 08/31/24. Instructions: Resume on 09/09/24. hold until follow up with PCP levetiracetam 500 mg tablet 500 mg PO BID 10/31/21 12/19/21 Previous Rx's ?Medication ?Instructions ?Recorded hydralazine 100 mg tablet 100 mg PO TID #90 tabs 03/17/23 insulin glargine 100 unit/mL (3 10 unit (0.1 mL) subcut QPM #15 mL 03/17/23 mL) subcutaneous pen (Lantus Solostar U-100 Insulin) lisinopril 40 mg tablet 40 mg PO BID #60 tabs 03/17/23 levothyroxine 25 mcg tablet 25 mcg PO ACBR #30 tabs 07/11/24 amoxicillin 875 mg-potassium 1 tab PO BID #20 tabs 08/26/24 clavulanate 125 mg tablet aspirin 81 mg tablet,delayed 81 mg PO QDAY #30 tabs 08/31/24 release (Adult Low Dose Aspirin) atorvastatin 40 mg tablet 40 mg PO QPM #30 tabs 08/31/24 ciprofloxacin HCl 500 mg tablet 500 mg PO BID otitis externa #20 09/05/24 tabs ondansetron 4 mg disintegrating 4 mg PO Q8H PRN nausea and 09/05/24 tablet vomiting #10 tabs amoxicillin 500 mg-potassium 1 tab PO BID #20 tabs 09/06/24 clavulanate 125 mg tablet (Augmentin) meclizine 25 mg tablet 25 mg PO BID PRN dizziness #20 tabs 09/06/24 scopolamine base 1 mg over 3 days 1 mg topical .q72 hours PRN 09/06/24 transdermal patch (Transderm-Scop) dizziness or vertigo #4 ea amoxicillin 500 mg-potassium 1 tab PO TID right ear infection 09/18/24 clavulanate 125 mg tablet #30 tabs (Augmentin) Allergies Allergy/AdvReac Type Severity Reaction Status Date / Time No Known Allergies Allergy Verified 09/04/24 15:04 Review of Systems Review of Systems Systems Reviewed: All systems reviewed, normal except as documented Past Medical History Past Medical History NEUROLOGIC: Positive Neurological Disorders, Cerebrovascular Accident, Seizures and Peripheral Neuropathy CARDIAC: Positive Cardiac Disorders, Coronary Artery Disease, Hypercholesterolemia and Hypertension; Negative Congestive Heart Failure RESPIRATORY: Positive Asthma; Negative Chronic Obstructive Pulmonary Disease (COPD) GASTROINTESTINAL: Positive Gastrointestinal Disorders, Ulcer and Obesity; Negative Hepatitis GENITOURINARY: Positive Genitourinary Disorders, Renal Disease and Dialysis REPRODUCTIVE: Positive Previous Pregnancies; Negative Endometriosis, Pelvic Inflammatory Disease or Uterine Prolapse MUSCULOSKELETAL: Negative Musculoskeletal Disorders ENT: Positive Cataracts and Retinal Detachment ENDOCRINE: Positive Endocrine Disorders, Diabetes Mellitus Type 1, Diabetes Mellitus Type 2, Hyperthyroidism and Hypothyroidism HEMATOLOGIC: Negative Blood Disorders PSYCHO/SOCIAL: Positive Depression and Anxiety OTHER HISTORY: Positive Hospitalization and Falls; Negative Autoimmune Disease, Blood Transfusions, Anesthesia Reactions, Organ Transplant, MRSA, VRSA, Vancomycin-Resistant Enterococci, Clostridium Difficile or Cancer Family History FAMILY HISTORY: Positive Family Cardiac Disorders; Negative Family Psychiatric Problems, Family Respiratory Disorders, Family Gastrointestinal Problems, Family Cancer, Family Surgery or Family Anesthesia Reaction Surgical History SURGICAL: Positive Cardiac Surgery, Vascular Surgery, Eye Surgery and Amputation; Negative Abdominal Surgery or Organ Transplant Social History SMOKING STATUS: Never smoker SECOND HAND EXPOSURE: No SUBSTANCE USE: does not use ED Exam General Limitations: Present no limitations General appearance: Present alert and in no apparent distress Head Head exam: Present atraumatic, normocephalic and normal inspection Eye Eye exam: Present normal appearance; Absent scleral icterus or conjunctival injection Expanded ENT Exam External ear exam: Present pain with movement, external tenderness and other (Right ear canal with erythema, edema and discharge. Left ear canal with erythema.) TM/Canal exam: Right TM: canal discharge (Moisture/drainage right canal. Mild erythema left canal.) and canal tenderness Nose exam: Absent sinus tenderness Neck Neck exam: Present normal inspection, full ROM and trachea midline Chest Chest inspection: Present normal inspection Respiratory Respiratory exam: Present normal lung sounds bilaterally; Absent respiratory distress Cardiovascular Cardiovascular exam: Present regular rate and normal rhythm Abdominal Exam Abdominal exam: Present soft; Absent distention or tenderness Extremities Exam Extremities exam: Present normal inspection Back Exam Back exam: Present full ROM Neurological Exam Neurological exam: Present alert and oriented X3 Psychiatric Psychiatric exam: Present normal mood, depressed and flat affect Skin Skin exam: Present warm, dry, intact and normal color Course Course Course Narrative: Initial vital signs blood pressure 137/78, pulse 80, respirations 18 and nonlabored, temp 98.6, O2 sat 99% on 4 L via nasal cannula. CBC reveals a normal white count, low H&H of 8.8/25.9, normal platelets. Chemistry panel reveals normal sodium and potassium. Minimally low chloride of 97, mildly elevated CO2 of 33.4 with normal gap. Creatinine 3.3, BUN 18, glucose 131, calcium 8.2, bilirubin 0.2, normal LFTs, normal troponin at less than 0.020, BNP elevated at 170, amylase normal, lipase mildly elevated at 70. Urinalysis reveals 1+ protein, negative nitrates, negative leukocyte esterase and rare bacteria. Urine hCG is negative. EKG, sinus rhythm at a rate of 71. T wave abnormality still present from previous EKG. No STEMI. XR chest: No acute process. Quality Measures none Orders Category Date Time Status EKG (ED ONLY) *Do not use* NOW Care 09/04/24 15:13 Completed NPO STAT Care 09/04/24 15:09 Completed EKG (ED Only) Stat Exams 09/04/24 15:13 Draft XR chest 1V portable Stat Exams 09/04/24 15:11 Completed Amylase Stat Lab 09/04/24 15:33 Completed BNP [B-Type Natriuretic Peptide] Stat Lab 09/04/24 15:33 Completed Blood Culture (Lab) Stat Lab 09/04/24 15:36 Completed CBC Stat Lab 09/04/24 15:33 Completed Comprehensive Metabolic Panel Stat Lab 09/04/24 15:33 Completed HCG Qualitative,Urine Stat Lab 09/04/24 16:31 Completed Lactic Acid [Lactate (Lactic Acid)] Stat Lab 09/04/24 15:33 Completed Lipase Stat Lab 09/04/24 15:33 Completed Troponin I Stat Lab 09/04/24 15:33 Completed Urinalysis Stat Lab 09/04/24 16:31 Completed Urine Culture Stat Lab 09/04/24 16:31 Completed Vital Signs Vital signs: Vital Signs Temperature 98.6 F 09/04/24 14:05 Pulse Rate 80 09/04/24 14:05 Respiratory Rate 18 09/04/24 14:05 Blood Pressure 137/78 H 09/04/24 14:05 Pulse Oximetry (%) 99 09/04/24 14:05 Oxygen Delivery Method Nasal Cannula 09/04/24 14:05 Oxygen Flow Rate 4 09/04/24 14:05 Discharge Plan Plan Patient Disposition: HOME (Self Care) Discharge Disposition comment: Stable Prescriptions/Referrals Prescriptions/Med Rec: New ciprofloxacin HCl 500 mg tablet 500 mg PO BID Qty: 20 0RF ondansetron 4 mg tablet,disintegrating 4 mg PO Q8H PRN (Reason: nausea and vomiting) Qty: 10 0RF No Action nifedipine 90 mg tablet extended release 24hr 90 mg PO QDAY calcium acetate(phosphat bind) 667 mg capsule 667 mg PO TID Patient Comments: TAKE ONE CAPSULE BY MOUTH THREE TIMES DAILY Rx Instructions: with meals sertraline 50 mg Tablet 50 mg PO QDAY allopurinol 300 mg Tablet 300 mg PO QDAY folic acid 1 mg Tablet 1 mg PO QDAY levetiracetam 500 mg Tablet 500 mg PO BID insulin glargine [Lantus Solostar U-100 Insulin] 100 unit/mL (3 mL) insulin pen 10 unit SUBCUT QPM Qty: 15 0RF Patient Comments: INJECT 90 UNITS SUBCUTANEOUSLY TWICE DAILY hydralazine 100 mg tablet 100 mg PO TID Qty: 90 0RF lisinopril 40 mg Tablet 40 mg PO BID Qty: 60 0RF levothyroxine 25 mcg Tablet 25 mcg PO ACBR Qty: 30 0RF amoxicillin-pot clavulanate 875-125 mg tablet 1 tab PO BID Qty: 20 0RF aspirin [Adult Low Dose Aspirin] 81 mg tablet,delayed release (DR/EC) 81 mg PO QDAY Qty: 30 0RF atorvastatin 40 mg tablet 40 mg PO QPM Qty: 30 0RF amoxicillin-pot clavulanate [Augmentin] 500-125 mg tablet 1 tab PO TID MDD 3 Qty: 30 0RF amoxicillin-pot clavulanate [Augmentin] 500-125 mg tablet 1 tab PO BID Qty: 20 0RF meclizine 25 mg tablet 25 mg PO BID PRN (Reason: dizziness) Qty: 20 0RF scopolamine base [Transderm-Scop] 1 mg over 3 days patch 3 day 1 mg topical .q72 hours PRN (Reason: dizziness or vertigo) Qty: 4 0RF Referrals: Radha Mane PA-C [Primary Care Provider] - In 1 week Problem List Clinical Impression: Chronic renal insufficiency, Otitis externa, Anemia in chronic kidney disease, on chronic dialysis, Abrasion hip/leg Patient/Caregiver Discharge Instructions Education Materials: Anemia and Kidney Disease, ED Abrasions, ED External Ear Infection (Adult) Additional Instructions: Follow-up with your primary care physician in 24 to 48 hours. Return to the ED for any new or worsening symptoms. Print Language: [place]de[place] Stand Alone Forms: [employer] Award Info., Patient Portal Info Letter MIN/JASWANT Supervising Physician VINOD Supervising Physician: Dr Lynch MDM Narrative MDM hospital course (for use when minimal MDM required): 54-year-old female dialysis patient () presents to the ED with a complaint of generalized weakness, nausea and vomiting. She denies any fever or chills, upper respiratory symptoms, cough, chest pain or shortness of breath, diarrhea or abdominal pain. She is also complaining of right ear pain that has been ongoing for quite some time. Initial vital signs blood pressure 137/78, pulse 80, respirations 18 and nonlabored, temp 98.6, O2 sat 99% on 4 L via nasal cannula. CBC reveals a normal white count, low H&H of 8.8/25.9, normal platelets. Chemistry panel reveals normal sodium and potassium. Minimally low chloride of 97, mildly elevated CO2 of 33.4 with normal gap. Creatinine 3.3, BUN 18, glucose 131, calcium 8.2, bilirubin 0.2, normal LFTs, normal troponin at less than 0.020, BNP elevated at 170, amylase normal, lipase mildly elevated at 70. Urinalysis reveals 1+ protein, negative nitrates, negative leukocyte esterase and rare bacteria. Urine hCG is negative. EKG, sinus rhythm at a rate of 71. T wave abnormality still present from previous EKG. No STEMI. XR chest: No acute process. Patient was discharged home in stable condition. Clinical Information Provided by: patient Medical Records reviewed [facility] Meds/Rx considered, not ordered None Labs/Rad/Tests considered, not ordered None Chronic Illness/Social Conditions which may negatively complicate care or outcome(s)-explain: Genetic/metabolic disorder EKG Interpretation As noted above: EKG Interpretation: As noted above Labs Labs: Interpreted by in Lab(s) Interpretation(s): As noted above Imaging Imaging Interpretation(s): As above Medication Administration(s) none Diagnosis Diagnoses ruled out and/or further discussions: Otitis externa, chronic renal disease on hemodialysis, anemia secondary to chronic renal disease.
[2024-09-04 15:45] LABS: Lactate (Lactic Acid) 1.1 mMol/L (0.4-2.0)
[2024-09-04 15:47] LABS: Basophils % (Auto) 0 % (0-2.5); Eosinophils # (Auto) 0.1 Thou/mm3 (0.0-0.5); Eosinophils % (Auto) 2 % (0-10); Hematocrit 25.9 % (36.0-46.0); Immature Granulocytes % (Auto) 1 % (0-0); Immature Granulocytes Auto 0.03 Thou/mm3 (0.00-0.00); Lymphocytes # (Auto) 1.2 Thou/mm3 (1.0-4.8); Lymphocytes % (Auto) 24 % (10-50); Mean Corpuscular Volume 97 fL (80-100); Monocytes # (Auto) 0.5 Thou/mm3 (0.0-0.8); Monocytes % (Auto) 10 % (0-12); Neutrophils # (Auto) 3.1 Thou/mm3 (1.8-7.7); Neutrophils % (Auto) 63 % (37-80); Nucleated Red Blood Cell % 0 /100 WBC (0); Platelet Count 261 Thou/mm3 (140-440); RDW Standard Deviation 51.6 fL (36.4-46.3); Red Blood Count 2.67 Miln/mm3 (4.00-5.20)
[2024-09-04 15:51] LABS: Hemoglobin 8.8 g/dL (12.0-16.0)
[2024-09-04 16:22] LABS: B-Type Natriuretic Peptide 170 pg/mL (0-100)
[2024-09-04 16:23] LABS: Alanine Aminotransferase 11 U/L (10-49); Albumin/Globulin Ratio 1.3 (1.2-2.2); Alkaline Phosphatase 50 U/L (46-116); Amylase 73 U/L (30-118); Anion Gap 9 (7-16); Aspartate Amino Transferase 21 U/L (0-34); BUN/Creatinine Ratio 5 Ratio (12-20); Bilirubin,Total 0.2 mg/dL (0.3-1.2); Blood Urea Nitrogen 18 mg/dL (9-23); Calcium 8.2 mg/dL (8.3-10.6); Calcium (Corrected) 8.2 mg/dL (8.5-10.1); Carbon Dioxide 33.4 mMol/L (20.0-31.0); Chloride 97 mMol/L (98-107); Creatinine (Component) 3.3 mg/dL (0.6-1.3); Estimated Creatinine Clearance 21.8 mL/min (>60); Globulin 3.2 gm/dL (2.3-3.5); Glucose 131 mg/dL (74-106); Lipase 70 U/L (12-53); Osmolality,Calculated 281 (275-295); Potassium 3.5 mMol/L (3.4-5.1); Sodium 139 mMol/L (136-145); Total Protein 7.2 gm/dL (5.7-8.2); Troponin I < 0.020 ng/mL (0.0-0.045); eGFR 16 See Note
[2024-09-04 16:43] LABS: Collection Type, Urine Clean Catch
[2024-09-04 17:01] LABS: HCG Qualitative,Urine Negative
[2024-09-04 17:03] LABS: Bacteria,Urine Rare; Bilirubin,Urine Negative (Negative); Blood,Urine Negative (Negative); Clarity,Urine Clear (Clear/Hazy); Color,Urine Lt-Yellow (Lt Yel-Yel); Glucose, Urine Negative (Negative); Ketones,Urine Negative (Negative); Leukocyte Esterase,Urine Negative (Negative); Nitrite,Urine Negative (Negative); PH,Urine 7.5 (5.0-7.0); Protein,Urine 1+ (Neg - Trace); RBC,Urine < 1 /hpf (0-3); Specific Gravity,Urine 1.011 (1.001-1.035); Squamous Epithelial Cell,Urine 3 /hpf (0-5); Urobilinogen,Urine Negative mg/dL (0.0-1.0); WBC,Urine 1 /hpf (0-5)
[2024-09-05] VITALS: BP 146/65; PULSE 79; RESP 16; TEMP 36.9; O2SAT 98
== END 2024-09-05 00:48 | disposition home or self-care (01) ==
PROVIDERS: Physician Assistant; Emergency Provider Family Medicine; PCP Physician Assistant
DX: I12.0 Hypertensive chronic kidney disease with stage 5 chronic kidney disease or end stage renal disease (principal); N18.6 End stage renal disease; D63.1 Anemia in chronic kidney disease; E11.22 Type 2 diabetes mellitus with diabetic chronic kidney disease; S70.219A Abrasion, unspecified hip, initial encounter; H60.91 Unspecified otitis externa, right ear; R94.31 Abnormal electrocardiogram [ECG] [EKG]; Z79.4 Long term (current) use of insulin; Z99.2 Dependence on renal dialysis; R06.02 Shortness of breath
CPT/HCPCS: 51701; 36415; 71045; 80053; 81001; 81025; 82150; 83605; 83690; 83880; 84484; 85025; 87040; 87086; 93005; 99283

== ENCOUNTER 2024-09-06 11:32 | Emergency (ER) | payer MEDICARE, MEDICAID, SELFPAY ==
[2024-09-06] VITALS (11 sets, daily range): BP systolic 101–151; BP diastolic 43–80; PULSE 68–89; RESP 12–20; TEMP 36.6–36.9; O2SAT 93–100; BMI 34.2
--- NOTE | 2024-09-06 | XR_ITS ---
Examination: MRI brain without intravenous contrast. Date and time of exam: September 06, 2024 1735 hours Comparison August 30, 2024 INDICATION: Patient with right ear pain today Technique: Multiple axial and sagittal images of the brain obtained. Siemens high-resolution 1.5 Tasneem short bore scanners utilized. Sagittal sections, T1-weighted, TR 500, TE 14, are performed. Axial sections proton-density and T2-weighted have been obtained. Inversion recovery axial images, TR 9, 260, TE 111, TI 2500. Diffusion weighted images, axial sections, TR 4800, TE 128, B value 1000 Axial sections, ADC map, TR 4800, TE 128 Findings: Enlargement of the sella turcica is not present. The optic chiasm and infundibular are not remarkable. Prepontine and interpeduncular cisterns are not enlarged. There is no localized enlargement of the medulla or melchor. Fourth ventricle and cerebellar tonsils appear normal in position. No subacute area of hemorrhage density is seen. Mass in the cerebellopontine angle region is not evident. Globes symmetrical. Orbital musculature including medial lateral rectus muscles do not exhibit abnormality. Diffusion-weighted images demonstrate no focus of restricted diffusion. Increased white matter signal evident, large old infarct left temporal parietal occipital lobe Mild right acute mastoiditis Mass effect upon the ventricular system is not identified. Impression: Negative for acute hemorrhage mass effect or midline shift No acute infarct Large old infarct left middle cerebral artery distribution. Mild acute right mastoiditis CT scan middle inner ear without contrast follow-up would best assess for acute mastoiditis, right otitis media, acquired cholesteatoma in the right attic or Prussak's space, as clinically warranted
--- NOTE | 2024-09-06 12:01 | PD.EDADULT ---
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 She has been having severe dizziness with head movement. She reported that she has came to the hospital 3 times due to similar reason. She was placed on oxygen due to mild shortness of breath and ambulance. She was at dialysis center when she was brought to the ER and per patient she did not complete her dialysis session. Denied any fever or chills. She endorses nausea and vomited 2 times. Vomitus contained digested food particles.Of note, patient was recently discharged after the management of acute encephalopathy and otitis externa with perforated right tympanic membrane. She has been taking aspirin, atorvastatin as she was found to have left frontal lobe acute infarct. She was also given a course of antibiotic Augmentin 875 twice daily. PMH: As above PSH: Cardiac surgery, vascular surgery, eye surgery and amputation SH: Patient lives alone, denies smoking or drinking alcohol. No history of illicit drug use Allergies: NKDA Home medications: Aspirin 81 mg, atorvastatin 40 mg, sertraline 50 mg, allopurinol 300 mg, Keppra 500 mg twice daily Lantus 10 units subcut, hydralazine 100 mg 3 times daily, lisinopril 40 mg twice daily, levothyroxine 25 mcg once daily Vitals showed blood pressure of 101/48, heart rate 68, respiratory rate 19. She was afebrile and saturating well on 6 L NC. Otoscopic exam showed hyperemic Tympanic membrane with mild pus/wax inside. CBC showed hemoglobin 8.8, white count 6.5, platelet count 275. Chemistry panel is pending. Lactic acid 1.9. Procalcitonin pending. EKG showed sinus rhythm with QTc 486. Chest x-ray showed no aspiration pneumonia. We ordered famotidine 20 mg IV x 1, meclizine 50 mg x 1 and Zofran 4 mg IV x 1 with a dose of Zosyn 3.375 g x 1. Ordered basic labs with EKG, troponin I, procalcitonin and lactic acid along with chest x-ray. He ordered MRI brain acoustic window to rule out right ear infection. Will follow with MRI results and if patient has pus or infection we will likely transfer the patient out for ENT specialist. 1400 Chem panel showed sodium 140 potassium 3.5 CL 99. Kidney function consistent with ESRD pattern with BUN 28 and creatinine 5.3. GFR 9 blood glucose 111 lactic acid was 1.9. Corrected calcium 7.9. Phosphorus and magnesium unremarkable. Liver enzymes unremarkable. Troponin I was negative. Procalcitonin was negative. Ordered Ca carbonate x1. 17:33 re-evaluated and patient stated improvement in her symptoms. 18:00 Discussed case with ED Physician regarding patient's ED course, exam findings, labs. Pending MRI brain to be followed up if significant needs transfer for ENT referral. MD complaint: Right ear pain with dizziness Onset (ago): week(s) (1) Associated symptoms: malaise and other (Dizziness) Related Data Home Medications ?Medication ?Instructions ?Recorded ?Confirmed sertraline 50 mg tablet 50 mg PO QDAY 10/01/18 12/19/21 allopurinol 300 mg tablet 300 mg PO QDAY 01/01/20 12/19/21 folic acid 1 mg tablet 1 mg PO QDAY 09/22/20 12/19/21 calcium acetate(phosphat bind) 667 667 mg PO TID 01/12/21 12/19/21 mg capsule nifedipine 90 mg tablet,extended 90 mg PO QDAY 01/12/21 12/19/21 release 24 hr Held on 08/31/24. Instructions: Resume on 09/09/24. hold until follow up with PCP levetiracetam 500 mg tablet 500 mg PO BID 10/31/21 12/19/21 Previous Rx's ?Medication ?Instructions ?Recorded hydralazine 100 mg tablet 100 mg PO TID #90 tabs 03/17/23 insulin glargine 100 unit/mL (3 10 unit (0.1 mL) subcut QPM #15 mL 03/17/23 mL) subcutaneous pen (Lantus Solostar U-100 Insulin) lisinopril 40 mg tablet 40 mg PO BID #60 tabs 03/17/23 levothyroxine 25 mcg tablet 25 mcg PO ACBR #30 tabs 07/11/24 amoxicillin 875 mg-potassium 1 tab PO BID #20 tabs 08/26/24 clavulanate 125 mg tablet aspirin 81 mg tablet,delayed 81 mg PO QDAY #30 tabs 08/31/24 release (Adult Low Dose Aspirin) atorvastatin 40 mg tablet 40 mg PO QPM #30 tabs 08/31/24 ciprofloxacin HCl 500 mg tablet 500 mg PO BID otitis externa #20 09/05/24 tabs ofloxacin 0.3 % ear drops 10 drp otic (ear) BID otitis 09/05/24 externa 14 days #10 mL ondansetron 4 mg disintegrating 4 mg PO Q8H PRN nausea and 09/05/24 tablet vomiting #10 tabs Allergies Allergy/AdvReac Type Severity Reaction Status Date / Time No Known Allergies Allergy Verified 09/04/24 15:04 Review of Systems Review of Systems Systems Reviewed: All systems reviewed, normal except as documented Past Medical History Past Medical History NEUROLOGIC: Positive Neurological Disorders, Cerebrovascular Accident, Seizures and Peripheral Neuropathy CARDIAC: Positive Cardiac Disorders, Coronary Artery Disease, Hypercholesterolemia and Hypertension; Negative Congestive Heart Failure RESPIRATORY: Positive Asthma; Negative Chronic Obstructive Pulmonary Disease (COPD) GASTROINTESTINAL: Positive Gastrointestinal Disorders, Ulcer and Obesity; Negative Hepatitis GENITOURINARY: Positive Genitourinary Disorders, Renal Disease and Dialysis REPRODUCTIVE: Positive Previous Pregnancies; Negative Endometriosis, Pelvic Inflammatory Disease or Uterine Prolapse MUSCULOSKELETAL: Negative Musculoskeletal Disorders ENT: Positive Cataracts and Retinal Detachment ENDOCRINE: Positive Endocrine Disorders, Diabetes Mellitus Type 1, Diabetes Mellitus Type 2, Hyperthyroidism and Hypothyroidism HEMATOLOGIC: Negative Blood Disorders PSYCHO/SOCIAL: Positive Depression and Anxiety OTHER HISTORY: Positive Hospitalization and Falls; Negative Autoimmune Disease, Blood Transfusions, Anesthesia Reactions, Organ Transplant, MRSA, VRSA, Vancomycin-Resistant Enterococci, Clostridium Difficile or Cancer Family History FAMILY HISTORY: Positive Family Cardiac Disorders; Negative Family Psychiatric Problems, Family Respiratory Disorders, Family Gastrointestinal Problems, Family Cancer, Family Surgery or Family Anesthesia Reaction Surgical History SURGICAL: Positive Cardiac Surgery, Vascular Surgery, Eye Surgery and Amputation; Negative Abdominal Surgery or Organ Transplant Social History SMOKING STATUS: Never smoker SECOND HAND EXPOSURE: No SUBSTANCE USE: does not use ED Exam Narrative Physical exam: GENERAL APPEARANCE: AxOx4, generally well-appearing female in no acute distress. Saturating well on 6 L NC. HEENT: NC, AT. MMM. EOMI, clear conjunctiva, oropharynx clear. NECK: Supple without lymphadenopathy. No stiffness or restricted ROM. Right ear pain. HEART: Regular rate and regular rhythm, normal S1/S2, no m/r/g LUNGS: CTAB, moving air well. No crackles or wheezes are heard. ABDOMEN: Soft, nontender, nondistended with good bowel sounds heard. BACK: No CVAT, no obvious deformity. EXTREMITIES: Left tibial abrasions. Increased facial hair in the lower half of the face. Right arm fistula. NEUROLOGICAL: Grossly nonfocal. Alert and orientedx3 . CN not formally tested but appear grossly intact. left arm mild weakness Skin: Left tibial abrasions. Increased facial hair in the lower half of the face. Psych: Appropriate mood and affect Course Course Course Narrative: Patient presented with Rt ear pain with dizziness x 1 week ago. Otoscopic exam showed hyperemic Tympanic membrane with mild pus/wax inside. Vitals showed blood pressure of 101/48, heart rate 68, respiratory rate 19. She was afebrile and saturating well on 6 L NC.BC showed hemoglobin 8.8, white count 6.5, platelet count 275. Chemistry panel is pending. Lactic acid 1.9. Procalcitonin pending. EKG showed sinus rhythm with QTc 486. Chest x-ray showed no aspiration pneumonia. We ordered famotidine 20 mg IV x 1, meclizine 50 mg x 1 and Zofran 4 mg IV x 1 with a dose of Zosyn 3.375 g x 1. Ordered basic labs with EKG, troponin I, procalcitonin and lactic acid along with chest x-ray. He ordered MRI brain acoustic window to rule out right ear infection. Will follow with MRI results and if patient has pus or infection we will likely transfer the patient out for ENT specialist. 1400 Chem panel showed sodium 140 potassium 3.5 CL 99. Kidney function consistent with ESRD pattern with BUN 28 and creatinine 5.3. GFR 9 blood glucose 111 lactic acid was 1.9. Corrected calcium 7.9. Phosphorus and magnesium unremarkable. Liver enzymes unremarkable. Troponin I was negative. Procalcitonin was negative. Ordered Ca carbonate x1. 17:33 re-evaluated and patient stated improvement in her symptoms. 18:00 Discussed case with ED Physician regarding patient's ED course, exam findings, labs. Pending MRI brain to be followed up if significant needs transfer for ENT referral. Quality Measures none Orders Category Date Time Status EKG (ED ONLY) *Do not use* NOW Care 09/06/24 12:29 Completed Fingerstick [Bedside Blood Glucose] NOW Care 09/06/24 12:26 Active MRI Screening NOW Care 09/06/24 12:25 Active Orthostatic Vitals NOW Care 09/06/24 14:19 Active CXRP [XR chest 1V portable] Stat Exams 09/06/24 12:26 Completed EKG (ED Only) Stat Exams 09/06/24 12:29 Draft MR head/brain wo con Stat Exams 09/06/24 Ordered Blood Culture (Lab) Stat Lab 09/06/24 14:44 Received CBC Stat Lab 09/06/24 13:05 Completed Comprehensive Metabolic Panel Stat Lab 09/06/24 13:05 Completed Lactate (Lactic Acid) Stat Lab 09/06/24 13:05 Completed Magnesium Stat Lab 09/06/24 13:05 Completed Phosphorous Stat Lab 09/06/24 13:05 Completed Procalcitonin Stat Lab 09/06/24 13:05 Completed Troponin I Stat Lab 09/06/24 13:05 Completed Famotidine Inj [Pepcid Inj] Med 09/06/24 12:26 Discontinued 20 mg IVP X1 ONE Meclizine HCl [Antivert] Med 09/06/24 12:21 Discontinued 50 mg PO X1 ONE Ondansetron Inj [Zofran Inj] Med 09/06/24 12:21 Discontinued 4 mg IV X1 ONE Piper/Tazo 3.375 gm Premix [Zosyn] Med 09/06/24 12:26 Discontinued 3.375 gm in 50 ml IV X1 Vital Signs Vital signs: Vital Signs Temperature 98.2 F 09/06/24 11:43 Pulse Rate 68 09/06/24 11:43 Respiratory Rate 19 09/06/24 11:43 Blood Pressure 101/48 L 09/06/24 11:43 Pulse Oximetry (%) 98 09/06/24 11:43 Oxygen Delivery Method Nasal Cannula 09/06/24 11:43 Oxygen Flow Rate 6 09/06/24 11:43 Discharge Plan Prescriptions/Referrals Prescriptions/Med Rec: No Action nifedipine 90 mg tablet extended release 24hr 90 mg PO QDAY calcium acetate(phosphat bind) 667 mg capsule 667 mg PO TID Patient Comments: TAKE ONE CAPSULE BY MOUTH THREE TIMES DAILY Rx Instructions: with meals sertraline 50 mg Tablet 50 mg PO QDAY allopurinol 300 mg Tablet 300 mg PO QDAY folic acid 1 mg Tablet 1 mg PO QDAY levetiracetam 500 mg Tablet 500 mg PO BID insulin glargine [Lantus Solostar U-100 Insulin] 100 unit/mL (3 mL) insulin pen 10 unit SUBCUT QPM Qty: 15 0RF Patient Comments: INJECT 90 UNITS SUBCUTANEOUSLY TWICE DAILY hydralazine 100 mg tablet 100 mg PO TID Qty: 90 0RF lisinopril 40 mg Tablet 40 mg PO BID Qty: 60 0RF levothyroxine 25 mcg Tablet 25 mcg PO ACBR Qty: 30 0RF amoxicillin-pot clavulanate 875-125 mg tablet 1 tab PO BID Qty: 20 0RF aspirin [Adult Low Dose Aspirin] 81 mg tablet,delayed release (DR/EC) 81 mg PO QDAY Qty: 30 0RF atorvastatin 40 mg tablet 40 mg PO QPM Qty: 30 0RF ofloxacin 0.3 % drops 10 drp otic (ear) BID 14 Days Qty: 10 0RF ciprofloxacin HCl 500 mg tablet 500 mg PO BID Qty: 20 0RF ondansetron 4 mg tablet,disintegrating 4 mg PO Q8H PRN (Reason: nausea and vomiting) Qty: 10 0RF Problem List Clinical Impression: Ear pain, right, Ear infection, Dizziness Patient/Caregiver Discharge Instructions Print Language: [place] MDM Narrative MDM hospital course (for use when minimal MDM required): Patient presented with Rt ear pain with dizziness x 1 week ago. Otoscopic exam showed hyperemic Tympanic membrane with mild pus/wax inside. Vitals showed blood pressure of 101/48, heart rate 68, respiratory rate 19. She was afebrile and saturating well on 6 L NC.BC showed hemoglobin 8.8, white count 6.5, platelet count 275. Chemistry panel is pending. Lactic acid 1.9. Procalcitonin pending. EKG showed sinus rhythm with QTc 486. Chest x-ray showed no aspiration pneumonia. We ordered famotidine 20 mg IV x 1, meclizine 50 mg x 1 and Zofran 4 mg IV x 1 with a dose of Zosyn 3.375 g x 1. Ordered basic labs with EKG, troponin I, procalcitonin and lactic acid along with chest x-ray. He ordered MRI brain acoustic window to rule out right ear infection. Will follow with MRI results and if patient has pus or infection we will likely transfer the patient out for ENT specialist. Differentials includes ear infection, BPPV or hypotension 17:33 re-evaluated and patient stated improvement in her symptoms. 18:00 Discussed case with ED Physician regarding patient's ED course, exam findings, labs. Pending MRI brain to be followed up if significant needs transfer for ENT referral. Medication Administration(s) Medication Administration History Discontinued Medications Famotidine (Famotidine Inj 10 Mg/Ml Vial 2 Ml) 20 mg IVP X1 ONE Stop: 09/06/24 12:27 Last Admin: 09/06/24 13:30 Dose: 20 mg Documented By: SYBIL Piperacillin/Tazobactam/Dextrose (Zosyn) 3.375 gm in 50 mls @ 100 mls/hr IV X1 ONE Stop: 09/06/24 12:55 Last Infusion: 09/06/24 14:00 Dose: Infused Documented By: Admin: 09/06/24 13:32 Dose: 100 mls/hr Documented By: SYBIL Meclizine HCl (Meclizine Hcl 25 Mg Tablet) 50 mg PO X1 ONE Stop: 09/06/24 12:22 Last Admin: 09/06/24 13:27 Dose: 50 mg Documented By: SYBIL Ondansetron HCl (Ondansetron Inj 2 Mg/Ml Inj 2 Ml) 4 mg IV X1 ONE; Protocol Stop: 09/06/24 12:22 Last Admin: 09/06/24 13:28 Dose: 4 mg Documented By: SYBIL
--- NOTE | 2024-09-06 12:26 | XR_ITS ---
Examination: AP chest single view Technique : AP sitting portable chest single view Standing time: 12/07/2024 1323 hours INDICATIONS: Vomiting shortness of breath today. FINDINGS: Normal heart size Moderate elevation right hemidiaphragm. No aspiration pneumonia. Osseous structures are intact IMPRESSION: No aspiration pneumonia
--- NOTE | 2024-09-06 12:29 | EKG_ITS ---
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1970 Requested By: Jacob Snowden Order Number: [id number] Reading MD: Jacob Snowden Measurements Intervals [place] Rate: 78 P: 31 SC: 184 QRS: -22 QRSD: 103 T: 176 QT: 426 QTc: 486 Interpretive Statements SINUS RHYTHM POSSIBLE ANTERIOR MYOCARDIAL INFARCTION , OF INDETERMINATE AGE [30 ms Q WAVE IN V3/V4, OR R < 0.2 mV IN V4] MODERATE T-WAVE ABNORMALITY, CONSIDER LATERAL ISCHEMIA [-0.1+ mV T-WAVE IN I/aVL/V5/V6] MODERATE T-WAVE ABNORMALITY, CONSIDER INFERIOR ISCHEMIA [-0.1+ mV T-WAVE IN II/aVF] Compared to ECG 09/04/2024 15:54:02 No significant changes /store/S0/[id number]
[2024-09-06] MEDS: MECLIZINE HCL 25 MG TABLET 50 MG PO (13:27)
[2024-09-06 13:28] LABS: Lactate (Lactic Acid) 1.9 mMol/L (0.4-2.0)
[2024-09-06] MEDS: ONDANSETRON INJ 2 MG/ML INJ 2 ML 4 MG IV (13:28)
[2024-09-06] MEDS: FAMOTIDINE INJ 10 MG/ML VIAL 2 ML 20 MG IVP (13:30)
[2024-09-06] MEDS: PIPER/TAZO 3.375 GM PREMIX 3.375 GM/50 ML BAG IV (13:32)
[2024-09-06 13:35] LABS: Basophils % (Auto) 1 % (0-2.5); Eosinophils # (Auto) 0.2 Thou/mm3 (0.0-0.5); Eosinophils % (Auto) 3 % (0-10); Hematocrit 26.1 % (36.0-46.0); Immature Granulocytes % (Auto) 1 % (0-0); Immature Granulocytes Auto 0.03 Thou/mm3 (0.00-0.00); Lymphocytes # (Auto) 1.8 Thou/mm3 (1.0-4.8); Lymphocytes % (Auto) 27 % (10-50); Mean Corpuscular HGB Conc 33.7 g/dl (31.0-37.0); Mean Corpuscular Hemoglobin 32.8 pg (25.0-35.0); Mean Corpuscular Volume 97 fL (80-100); Monocytes # (Auto) 0.6 Thou/mm3 (0.0-0.8); Monocytes % (Auto) 9 % (0-12); Neutrophils # (Auto) 3.8 Thou/mm3 (1.8-7.7); Neutrophils % (Auto) 59 % (37-80); Nucleated Red Blood Cell % 0 /100 WBC (0); Platelet Count 275 Thou/mm3 (140-440); RDW Standard Deviation 54.1 fL (36.4-46.3); Red Blood Count 2.68 Miln/mm3 (4.00-5.20); White Blood Count 6.5 Thou/mm3 (3.6-11.0)
[2024-09-06 13:37] LABS: Hemoglobin 8.8 g/dL (12.0-16.0)
[2024-09-06 14:04] LABS: Alanine Aminotransferase 10 U/L (10-49); Albumin, Serum 4.2 gm/dL (3.5-5.0); Albumin/Globulin Ratio 1.4 (1.2-2.2); Alkaline Phosphatase 51 U/L (46-116); Anion Gap 9 (7-16); Aspartate Amino Transferase 16 U/L (0-34); BUN/Creatinine Ratio 5 Ratio (12-20); Bilirubin,Total 0.2 mg/dL (0.3-1.2); Blood Urea Nitrogen 28 mg/dL (9-23); Calcium 7.9 mg/dL (8.3-10.6); Calcium (Corrected) 7.9 mg/dL (8.5-10.1); Carbon Dioxide 32.3 mMol/L (20.0-31.0); Chloride 99 mMol/L (98-107); Creatinine (Component) 5.3 mg/dL (0.6-1.3); Estimated Creatinine Clearance 14.5 mL/min (>60); Globulin 3.1 gm/dL (2.3-3.5); Glucose 111 mg/dL (74-106); Osmolality,Calculated 285 (275-295); Phosphorous 3.8 mg/dL (2.4-5.1); Potassium 3.5 mMol/L (3.4-5.1); Procalcitonin 0.22 ng/ml (0.0-0.49); Sodium 140 mMol/L (136-145); Total Protein 7.3 gm/dL (5.7-8.2); Troponin I < 0.020 ng/mL (0.0-0.045); eGFR 9 See Note
--- NOTE | 2024-09-06 14:15 | PC.NURSE ---
PATIENT ARRIVED ED VIA EMS FOR DIZZINESS, PATIENT STATES SHE HAS BEEN TREATED RECENTLY FOR EAR PAIN. PATIENT WAS AT DIALYSIS TODAY WHEN SHE WAS UNABLE TO STAND UP DUE TO DIZZINESS. NO FALL. PATIENT PLACED IN ROOM AND ASSESSMENT COMPLETED. MRI CHECK OFF COMPLETED. CALL LIGHT WITHIN REACH. WILL CONTINUE TO MONITOR.
--- NOTE | 2024-09-06 17:22 | PC.NURSE ---
MRI TRANSPORTING PATIENT TO MRI.
--- NOTE | 2024-09-06 18:28 | PD.EDADDENDU ---
Emergency Room Addendum <Yue Carroll - Last Filed: 09/06/24 22:01> Addendum Narrative: I took over the care from previous shift physician at 1800 on 09/06/2024. See previous notes for complete H & P and ED course. I reviewed all diagnostic test results. My interpretation of the EKG is My interpretation of the chest x-ray is NAD. My review of the CT report is My review of the brain MRI is Negative for acute hemorrhage mass effect or midline shift. No acute infarct. Large old infarct left middle cerebral artery distribution. Mild acute right mastoiditis. CT scan middle inner ear without contrast follow-up would best assess for acute mastoiditis, right otitis media, acquired cholesteatoma in the right attic or Prussak's space, as clinically warranted. Blood tests and urine tests Diagnoses include: Treatment here included Not yet done: Based on my best medical judgment, made decision no further evaluation or treatment indicated at this time. Patient understands and agrees to the discharge instructions customized and printed, see below. Manjinder Beard MD <Manjinder Beard MD - Last Filed: 09/06/24 22:07> Addendum Narrative: I took over the care from previous shift physician (Jacob Snowden MD) at 1800 on 09/06/2024. See previous notes for complete H & P and ED course. Asked me to review the brain MRI report. My review of the brain MRI is: Negative for acute hemorrhage mass effect or midline shift. No acute infarct. Large old infarct left middle cerebral artery distribution. Mild acute right mastoiditis. Diagnoses include: Right mastoiditis and vertigo. Based on my best medical judgment, made decision no further evaluation or treatment indicated at this time. Patient understands and agrees to the discharge instructions customized and printed, see below. Discharge instructions from Dr. Beard: ? After extensive evaluation, there is no life-threatening condition.? Such as stroke or brain tumor or heart attack. -- Your severe symptoms are due to vertigo, possibly from right mastoiditis infection. Take Augmentin to kill the germs causing the infection. -- Use scopolamine patch and/or meclizine for your severe symptoms. -- And Zofran for nausea/vomiting.? And increase oral fluid to prevent dehydration.? Maintain clear urine.? If dark or yellow, increase oral fluid. -- And do everything very slowly.? Including moving your head.? And when you sit up or stand up, wait a minute before you progress.? -- See your private doctor on 09/08/2024 for recheck. Ask to review all test results and official radiology reports, to make sure you receive all necessary follow-ups and monitoring. Ask for a referral to see ENT specialist. Unfortunately, this hospital does not have ENT specialist. -- Seek immediate medical care with worsening or with any concerns. Manjinder Beard MD
== END 2024-09-06 22:34 | disposition home or self-care (01) ==
PROVIDERS: Student in an Organized Health Care Education/Training Program; Emergency Provider Emergency Medicine; PCP Physician Assistant
DX: H66.91 Otitis media, unspecified, right ear (principal); H70.001 Acute mastoiditis without complications, right ear; H71.90 Unspecified cholesteatoma, unspecified ear; R94.31 Abnormal electrocardiogram [ECG] [EKG]; R11.2 Nausea with vomiting, unspecified; R06.02 Shortness of breath; I12.0 Hypertensive chronic kidney disease with stage 5 chronic kidney disease or end stage renal disease; N18.6 End stage renal disease; I25.10 Atherosclerotic heart disease of native coronary artery without angina pectoris; E78.00 Pure hypercholesterolemia, unspecified; Z99.2 Dependence on renal dialysis
CPT/HCPCS: 36415; 70551; 71045; 80053; 83605; 83735; 84100; 84145; 84484; 85025; 87040; 93005; 96365; 96375; 99284; J2405; J2543; J3490; A9270

== ENCOUNTER 2024-09-18 12:58 | Emergency (ER) | payer MEDICARE, MEDICAID, SELFPAY ==
[2024-09-18 12:59] VITALS: BP 111/61; PULSE 98; RESP 17; TEMP 36.6; O2SAT 99
--- NOTE | 2024-09-18 13:05 | EKG_ITS ---
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1970 Requested By: ED Temporary Provider Order Number: [id number] Reading MD: ED Temporary Provider Measurements Intervals [place] Rate: 83 P: 35 DC: 184 QRS: -50 QRSD: 109 T: 95 QT: 445 QTc: 526 Interpretive Statements SINUS RHYTHM LEFT ANTERIOR FASCICULAR BLOCK [QRS AXIS <= -45, QR IN I, RS IN II] POSSIBLE ANTERIOR MYOCARDIAL INFARCTION , PROBABLY OLD [30 ms Q WAVE IN V3/V4, OR R < 0.2 mV IN V4] MODERATE T-WAVE ABNORMALITY, CONSIDER LATERAL ISCHEMIA [-0.1+ mV T-WAVE IN I/aVL/V5/V6] Compared to ECG 09/06/2024 13:11:00 Left anterior fascicular block now present Myocardial infarct finding still present T-wave abnormality still present Possible ischemia still present /store/[id number]
[2024-09-18 13:08] VITALS: BP 112/52; PULSE 84; RESP 18; O2SAT 97
[2024-09-18 13:14] VITALS: PULSE 91; RESP 18; O2SAT 96
[2024-09-18] MEDS: HYDROcodone/APAP 5/325 TABLET 1 TAB PO (13:48)
[2024-09-18] MEDS: LEVOFLOXACIN 250 MG TABLET 500 MG PO (13:48)
[2024-09-18 14:02] LABS: Basophils % (Auto) 0 % (0-2.5); Eosinophils # (Auto) 0.2 Thou/mm3 (0.0-0.5); Eosinophils % (Auto) 3 % (0-10); Hematocrit 25.9 % (36.0-46.0); Hemoglobin 8.9 g/dL (12.0-16.0); Immature Granulocytes % (Auto) 0 % (0-0); Immature Granulocytes Auto 0.01 Thou/mm3 (0.00-0.00); Lymphocytes # (Auto) 1.3 Thou/mm3 (1.0-4.8); Lymphocytes % (Auto) 24 % (10-50); Mean Corpuscular HGB Conc 34.4 g/dl (31.0-37.0); Mean Corpuscular Hemoglobin 33.2 pg (25.0-35.0); Mean Corpuscular Volume 97 fL (80-100); Monocytes # (Auto) 0.6 Thou/mm3 (0.0-0.8); Monocytes % (Auto) 12 % (0-12); Neutrophils # (Auto) 3.1 Thou/mm3 (1.8-7.7); Neutrophils % (Auto) 60 % (37-80); Nucleated Red Blood Cell % 0 /100 WBC (0); Platelet Count 238 Thou/mm3 (140-440); RDW Standard Deviation 53.1 fL (36.4-46.3); Red Blood Count 2.68 Miln/mm3 (4.00-5.20); White Blood Count 5.1 Thou/mm3 (3.6-11.0)
[2024-09-18 14:18] LABS: Anion Gap 12 (7-16); BUN/Creatinine Ratio 4 Ratio (12-20); Blood Urea Nitrogen 15 mg/dL (9-23); Calcium 8.3 mg/dL (8.3-10.6); Carbon Dioxide 31.2 mMol/L (20.0-31.0); Chloride 93 mMol/L (98-107); Creatinine (Component) 3.7 mg/dL (0.6-1.3); Glucose 134 mg/dL (74-106); Osmolality,Calculated 274 (275-295); Potassium 3.1 mMol/L (3.4-5.1); Sodium 136 mMol/L (136-145); Troponin I < 0.020 ng/mL (0.0-0.045); eGFR 14 See Note
--- NOTE | 2024-09-18 14:25 | PD.EDADULT ---
ED General RME/HPI General Chief complaint: General Adult/Misc Complain Stated complaint: HYPOTENSION Time Seen by Provider: 09/18/24 13:30 Arrival date/time: 09/18/24 12:58 Limitations: no limitations RME / HPI RME / HPI narrative: 54 year old female with history of CVA, hypertension, diabetes, ESRD T//Sat followed Dr. Deshpande presents to the ED BIBA from the dialysis center for evaluation of right ear pain today. Reportedly has had the pain for some time that is resolved with Tylenol. However, while at dialysis today the pain returned. Accompanied by dizziness. States she had been evaluated here several times regarding ear pain and they never do anything . Denied any fevers, chills or other associated symptoms. Related Data Home Medications ?Medication ?Instructions ?Recorded ?Confirmed sertraline 50 mg tablet 50 mg PO QDAY 10/01/18 12/19/21 allopurinol 300 mg tablet 300 mg PO QDAY 01/01/20 12/19/21 folic acid 1 mg tablet 1 mg PO QDAY 09/22/20 12/19/21 calcium acetate(phosphat bind) 667 667 mg PO TID 01/12/21 12/19/21 mg capsule nifedipine 90 mg tablet,extended 90 mg PO QDAY 01/12/21 12/19/21 release 24 hr Held on 08/31/24. Instructions: Resume on 09/09/24. hold until follow up with PCP levetiracetam 500 mg tablet 500 mg PO BID 10/31/21 12/19/21 Previous Rx's ?Medication ?Instructions ?Recorded hydralazine 100 mg tablet 100 mg PO TID #90 tabs 03/17/23 insulin glargine 100 unit/mL (3 10 unit (0.1 mL) subcut QPM #15 mL 03/17/23 mL) subcutaneous pen (Lantus Solostar U-100 Insulin) lisinopril 40 mg tablet 40 mg PO BID #60 tabs 03/17/23 levothyroxine 25 mcg tablet 25 mcg PO ACBR #30 tabs 07/11/24 amoxicillin 875 mg-potassium 1 tab PO BID #20 tabs 08/26/24 clavulanate 125 mg tablet aspirin 81 mg tablet,delayed 81 mg PO QDAY #30 tabs 08/31/24 release (Adult Low Dose Aspirin) atorvastatin 40 mg tablet 40 mg PO QPM #30 tabs 08/31/24 ciprofloxacin HCl 500 mg tablet 500 mg PO BID otitis externa #20 09/05/24 tabs ondansetron 4 mg disintegrating 4 mg PO Q8H PRN nausea and 09/05/24 tablet vomiting #10 tabs amoxicillin 500 mg-potassium 1 tab PO BID #20 tabs 09/06/24 clavulanate 125 mg tablet (Augmentin) meclizine 25 mg tablet 25 mg PO BID PRN dizziness #20 tabs 09/06/24 ondansetron 4 mg disintegrating 4 mg PO TID PRN nausea and 09/06/24 tablet vomiting 30 days #10 tabs scopolamine base 1 mg over 3 days 1 mg topical .q72 hours PRN 09/06/24 transdermal patch (Transderm-Scop) dizziness or vertigo #4 ea amoxicillin 500 mg-potassium 1 tab PO TID right ear infection 09/18/24 clavulanate 125 mg tablet #30 tabs (Augmentin) Allergies Allergy/AdvReac Type Severity Reaction Status Date / Time No Known Allergies Allergy Verified 09/04/24 15:04 Review of Systems Review of Systems Systems Reviewed: All systems reviewed, normal except as documented Past Medical History Past Medical History NEUROLOGIC: Positive Neurological Disorders, Cerebrovascular Accident, Seizures and Peripheral Neuropathy CARDIAC: Positive Cardiac Disorders, Coronary Artery Disease, Hypercholesterolemia and Hypertension RESPIRATORY: Positive Asthma GASTROINTESTINAL: Positive Gastrointestinal Disorders, Ulcer and Obesity GENITOURINARY: Positive Genitourinary Disorders, Renal Disease and Dialysis REPRODUCTIVE: Positive Previous Pregnancies ENT: Positive Cataracts and Retinal Detachment ENDOCRINE: Positive Endocrine Disorders, Diabetes Mellitus Type 1, Diabetes Mellitus Type 2, Hyperthyroidism and Hypothyroidism PSYCHO/SOCIAL: Positive Depression and Anxiety OTHER HISTORY: Positive Hospitalization and Falls Family History FAMILY HISTORY: Positive Family Cardiac Disorders Surgical History SURGICAL: Positive Cardiac Surgery, Vascular Surgery, Eye Surgery and Amputation Social History SMOKING STATUS: Never smoker SECOND HAND EXPOSURE: No SUBSTANCE USE: does not use ED Exam General Limitations: Present no limitations General appearance: Present alert and in no apparent distress Head Head exam: Present atraumatic, normocephalic and normal inspection Eye Eye exam: Present normal appearance, PERRL and EOMI ENT ENT exam: Present normal oropharynx, mucous membranes moist and other (Right ear has a 30% TM perforation ) Neck Neck exam: Present normal inspection, full ROM and trachea midline Chest Chest inspection: Present normal inspection and symmetric chest wall rise Respiratory Respiratory exam: Present normal lung sounds bilaterally Cardiovascular Cardiovascular exam: Present regular rate, normal rhythm and normal heart sounds Abdominal Exam Abdominal exam: Present soft and normal bowel sounds Extremities Exam Extremities exam: Present normal inspection and full ROM Back Exam Back exam: Present normal inspection and full ROM Neurological Exam Neurological exam: Present alert, oriented X3 and CN II-XII intact Psychiatric Psychiatric exam: Present normal affect and normal mood Skin Skin exam: Present warm, dry, intact and normal color Course Quality Measures none Orders Category Date Time Status EKG (ED ONLY) *Do not use* NOW Care 09/18/24 13:05 Completed EKG (ED Only) Stat Exams 09/18/24 13:05 Draft BMP [Basic Metabolic Panel] Stat Lab 09/18/24 13:49 Completed CBC Stat Lab 09/18/24 13:49 Completed Troponin I Stat Lab 09/18/24 13:49 Completed HYDROcodone*/APAP 5/325 [[place] 5/325] Med 09/18/24 13:31 Discontinued 1 tab PO X1 ONE Levofloxacin [Levaquin] Med 09/18/24 13:31 Discontinued 500 mg PO X1 ONE Vital Signs Vital signs: Vital Signs Temperature 97.8 F 09/18/24 12:59 Pulse Rate 98 09/18/24 12:59 Respiratory Rate 17 09/18/24 12:59 Blood Pressure 111/61 09/18/24 12:59 Pulse Oximetry (%) 99 09/18/24 12:59 Oxygen Delivery Method Room Air 09/18/24 12:59 Pulse ox is 99% on room air which is adequate. Discharge Plan Plan Patient Disposition: HOME (Self Care) Patient condition on transfer: Stable Prescriptions/Referrals Prescriptions/Med Rec: New amoxicillin-pot clavulanate [Augmentin] 500-125 mg tablet 1 tab PO TID MDD 3 Qty: 30 0RF No Action nifedipine 90 mg tablet extended release 24hr 90 mg PO QDAY calcium acetate(phosphat bind) 667 mg capsule 667 mg PO TID Patient Comments: TAKE ONE CAPSULE BY MOUTH THREE TIMES DAILY Rx Instructions: with meals sertraline 50 mg Tablet 50 mg PO QDAY allopurinol 300 mg Tablet 300 mg PO QDAY folic acid 1 mg Tablet 1 mg PO QDAY levetiracetam 500 mg Tablet 500 mg PO BID insulin glargine [Lantus Solostar U-100 Insulin] 100 unit/mL (3 mL) insulin pen 10 unit SUBCUT QPM Qty: 15 0RF Patient Comments: INJECT 90 UNITS SUBCUTANEOUSLY TWICE DAILY hydralazine 100 mg tablet 100 mg PO TID Qty: 90 0RF lisinopril 40 mg Tablet 40 mg PO BID Qty: 60 0RF levothyroxine 25 mcg Tablet 25 mcg PO ACBR Qty: 30 0RF amoxicillin-pot clavulanate 875-125 mg tablet 1 tab PO BID Qty: 20 0RF aspirin [Adult Low Dose Aspirin] 81 mg tablet,delayed release (DR/EC) 81 mg PO QDAY Qty: 30 0RF atorvastatin 40 mg tablet 40 mg PO QPM Qty: 30 0RF ciprofloxacin HCl 500 mg tablet 500 mg PO BID Qty: 20 0RF ondansetron 4 mg tablet,disintegrating 4 mg PO Q8H PRN (Reason: nausea and vomiting) Qty: 10 0RF amoxicillin-pot clavulanate [Augmentin] 500-125 mg tablet 1 tab PO BID Qty: 20 0RF meclizine 25 mg tablet 25 mg PO BID PRN (Reason: dizziness) Qty: 20 0RF scopolamine base [Transderm-Scop] 1 mg over 3 days patch 3 day 1 mg topical .q72 hours PRN (Reason: dizziness or vertigo) Qty: 4 0RF ondansetron 4 mg tablet,disintegrating 4 mg PO TID PRN (Reason: nausea and vomiting) 30 Days Qty: 10 0RF Referrals: No Primary/Family,Physician [Primary Care Provider] - In 1 week Problem List Clinical Impression: Right ear pain, Perforation of right tympanic membrane Patient/Caregiver Discharge Instructions Education Materials: ED Ruptured Eardrum, Traumatic Additional Instructions: Follow-up with your primary care doctor in 3 to 5 days for recheck and referral to ENT specialist for tympanic membrane evaluation and repair. You can return to the emergency department sooner if symptoms worsen or if you notice any new, concerning issues. For pain, take 1-2 Tylenol 500mg tablets every 6 hours. Print Language: Ivorian Stand Alone Forms: Latonya Award Info., Patient Portal Info Letter MDM Narrative MDM hospital course: Tequila Sen am scribing for and in the presence of Dr. Bonilla. Clinical Information Provided by patient and EMS Medical [facility] I reviewed ED visit on 09/06/2024 for ear pain Meds/Rx Considered, not Ordered None Labs/Rad/Tests considered, not Ordered None Chronic Illness/Social Conditions which may negatively complicate care or outcome(s)-explain: None or not applicable EKG Interpretation EKG #1: Date/time of EK09/18/24 13:06 EKG interpretation: Sinus rhythm, rate 83, left anterior fascicular block, NM 184ms, QRS 109ms, QT/QTc 445/485ms Lab Interpretation Labs: interpreted by mi Lab(s) interpretation(s): No leukocytosis Imaging Imaging interpretation: none Medication Administration(s) Medication Administration History Discontinued Medications Hydrocodone Bitart/Acetaminophen (Hydrocodone/Apap 5/325 Tablet) 1 tab PO X1 ONE Stop: 09/18/24 13:32 Last Admin: 09/18/24 13:48 Dose: 1 tab Documented By: MM Levofloxacin (Levofloxacin 250 Mg Tablet) 500 mg PO X1 ONE Stop: 09/18/24 13:32 Last Admin: 09/18/24 13:48 Dose: 500 mg Documented By: MM See above Diagnosis Most likely dx, and/or detailed dx discussion: Right ear pain Perforation of right ear drum Dispositon Disposition: Discharge Home
[2024-09-18 17:13] VITALS: PULSE 68; RESP 18; TEMP 37.1; O2SAT 97
== END 2024-09-18 17:16 | disposition home or self-care (01) ==
PROVIDERS: Emergency Provider Family Medicine
DX: H66.91 Otitis media, unspecified, right ear (principal); H72.91 Unspecified perforation of tympanic membrane, right ear; I44.4 Left anterior fascicular block; I12.0 Hypertensive chronic kidney disease with stage 5 chronic kidney disease or end stage renal disease; E10.22 Type 1 diabetes mellitus with diabetic chronic kidney disease; N18.6 End stage renal disease; Z99.2 Dependence on renal dialysis; Z79.4 Long term (current) use of insulin
CPT/HCPCS: 36415; 80048; 84484; 85025; 93005; 99283; A9270

== ENCOUNTER 2025-04-09 12:26 | Emergency (ER) | payer MEDICARE, MEDICAID, SELFPAY ==
[2025-04-09 12:30] VITALS: PULSE 70; RESP 18; O2SAT 96; BMI 38.6
[2025-04-09 12:32] VITALS: BP 131/68; PULSE 78; RESP 17; TEMP 36.8; O2SAT 97
--- NOTE | 2025-04-09 13:16 | XR_ITS ---
Examination: Arterial duplex lower extremity study, unilateral right leg Date and time of exam: April 09, 2025, 1333 hours INDICATIONS: Right lower leg redness swelling and pain cold to touch 2 days Findings: Duplex sonographic imaging of the lower extremity arteries using B-mode/[place] scale imaging and Doppler spectral analysis and color flow. Right arm fistula precluded ankle-brachial index Right common femoral artery demonstrates triphasic flow. Right superficial femoral artery demonstrates monophasic flow. Right popliteal artery demonstrates monophasic flow. Right posterior tibial artery demonstrated monophasic flow. Impression: Severe right lower leg obstructive arterial disease
--- NOTE | 2025-04-09 13:18 | PD.EDSKIN ---
ED Skin Abcess FB-RME/HPI General Chief complaint: Skin/Abscess/Foreign Body Stated complaint: LEG PAIN Time Seen by Provider: 04/09/25 13:09 Arrival date/time: 04/09/25 12:26 55-year-old female patient with significant history of hypertension diabetes mellitus, ESRD hypothyroidism, was sent to us after dialysis today via EMS for evaluation regarding right lower leg redness and pain has been ongoing for the last 3 days severity of symptoms mild. Patient denies any trauma to the leg denies any fever denies any other complaints patient is ambulatory. Related Data Home Medications ?Medication ?Instructions ?Recorded ?Confirmed sertraline 50 mg tablet 50 mg PO QDAY 10/01/18 12/19/21 allopurinol 300 mg tablet 300 mg PO QDAY 01/01/20 12/19/21 folic acid 1 mg tablet 1 mg PO QDAY 09/22/20 12/19/21 calcium acetate(phosphat bind) 667 667 mg PO TID 01/12/21 12/19/21 mg capsule nifedipine 90 mg tablet,extended 90 mg PO QDAY 01/12/21 12/19/21 release 24 hr Held on 08/31/24. Instructions: Resume on 09/09/24. hold until follow up with PCP levetiracetam 500 mg tablet 500 mg PO BID 10/31/21 12/19/21 Previous Rx's ?Medication ?Instructions ?Recorded hydralazine 100 mg tablet 100 mg PO TID #90 tabs 03/17/23 insulin glargine 100 unit/mL (3 10 unit (0.1 mL) subcut QPM #15 mL 03/17/23 mL) subcutaneous pen (Lantus Solostar U-100 Insulin) lisinopril 40 mg tablet 40 mg PO BID #60 tabs 03/17/23 levothyroxine 25 mcg tablet 25 mcg PO ACBR #30 tabs 07/11/24 amoxicillin 875 mg-potassium 1 tab PO BID #20 tabs 08/26/24 clavulanate 125 mg tablet aspirin 81 mg tablet,delayed 81 mg PO QDAY #30 tabs 08/31/24 release (Adult Low Dose Aspirin) atorvastatin 40 mg tablet 40 mg PO QPM #30 tabs 08/31/24 ciprofloxacin HCl 500 mg tablet 500 mg PO BID otitis externa #20 09/05/24 tabs ondansetron 4 mg disintegrating 4 mg PO Q8H PRN nausea and 09/05/24 tablet vomiting #10 tabs amoxicillin 500 mg-potassium 1 tab PO BID #20 tabs 09/06/24 clavulanate 125 mg tablet (Augmentin) meclizine 25 mg tablet 25 mg PO BID PRN dizziness #20 tabs 09/06/24 scopolamine base 1 mg over 3 days 1 mg topical .q72 hours PRN 09/06/24 transdermal patch (Transderm-Scop) dizziness or vertigo #4 ea amoxicillin 500 mg-potassium 1 tab PO TID right ear infection 09/18/24 clavulanate 125 mg tablet #30 tabs (Augmentin) cephalexin 500 mg capsule 500 mg PO Q8H 7 days #21 caps 04/09/25 pentoxifylline 400 mg 400 mg PO TID #30 tabs 04/09/25 tablet,extended release Allergies Allergy/AdvReac Type Severity Reaction Status Date / Time No Known Allergies Allergy Verified 09/04/24 15:04 Review of Systems Review of Systems Narrative Review of Systems: Review of system reviewed and within normal limits except mentioned in HPI ED Exam Narrative Physical exam: VITAL SIGNS: Reviewed. GENERAL APPEARANCE: Alert and interactive, follows commands, no acute distress, HEAD AND FACE: Non-traumatic. ENT: PERRL, pink conjunctivitis, eyelid no trauma, Mucous membrane moist. NECK: Supple, nontender, no nuchal rigidity. CHEST: No tenderness, no crepitus, no paradoxical movement, no retractions. LUNGS: Clear, well ventilated, symmetric, no rales, no wheezing, no ronchi, no stridor, good breath sounds bilaterally. HEART: Regular rate, regular rhythm, no murmur, no gallops. ABDOMEN: Soft, positive bowel sounds, nondistended, no guarding, nontender, no rebound, no masses, RECTAL: Deferred. GENITAL: Deferred. NEUROLOGICAL: Gross motor function intact sensory function intact, Appropriate for age. MUSCULOSKELETAL: low back nontender, full range of motion. EXTREMITIES: Redness to the right lower leg, with healing scabs, warm to touch, full range of motion. SKIN: Color pink, dry, no rash, no lacerations, no abrasions, no contusions. LYMPHATICS: Deferred. Course Quality Measures none Orders Category Date Time Status US arterial duplex LE RT Stat Exams 04/09/25 13:16 Completed CBC [CBC] Stat Lab 04/09/25 13:25 Completed CMP [Comprehensive Metabolic Panel] Stat Lab 04/09/25 13:25 Completed HYDROcodone/APAP 10/325 [[place] 10/325] Med 04/09/25 13:17 Discontinued 1 tab PO X1 ONE cephALEXin [Keflex] Med 04/09/25 13:17 Discontinued 500 mg PO X1 ONE Vital Signs Vital signs: Vital Signs Temperature 98.2 F 04/09/25 12:32 Pulse Rate 78 04/09/25 12:32 Respiratory Rate 17 04/09/25 12:32 Blood Pressure 131/68 H 04/09/25 12:32 Pulse Oximetry (%) 97 04/09/25 12:32 Oxygen Delivery Method Room Air 04/09/25 12:32 Skin / Abscess / Foreign Body MDM Narrative MDM Narrative:: 55-year-old female patient with significant history of hypertension diabetes mellitus, ESRD hypothyroidism, was sent to us after dialysis today via EMS for evaluation regarding right lower leg redness and pain has been ongoing for the last 3 days severity of symptoms mild. Patient denies any trauma to the leg denies any fever denies any other complaints patient is ambulatory. Ultrasound of the lower extremity arterial showed Severe right lower leg obstructive arterial disease Patient CBC did not show any leukocytosis. The rest of the labs is significant for ESRD creatinine 5.0 BUN of 39 potassium is normal Results of the ultrasound was discussed with the patient I told her to follow-up closely with PCP and for referral to vascular surgeon. There is no complete obstruction at this time to the arterial system of the lower extremity. The leg is not cold, is not cyanotic. Was given Keflex Patient data External records reviewed:: None Clinical information provided by:: patient Social determinants that could affect healthcare access:: none Patient has the following chronic illnesses:: ESRD, hypertension How is presenting disease/condition affected by chronic disease/condition?: exacerbated by Evaluation data The following diagnostics were reviewed and interpreted by me:: lab results and radiology exam(s) Lab and/or radiology exams considered but not ordered:: None Interpretation Summary: See above Medications / Prescriptions Medications or Prescriptions considered but not ordered:: None Medication administrations:: Medication Administration History Discontinued Medications Hydrocodone Bitart/Acetaminophen (Hydrocodone/Apap 10/325 Tab) 1 tab PO X1 ONE Stop: 04/09/25 13:18 Last Admin: 04/09/25 14:27 Dose: 1 tab Documented By: ANA PAULA Cephalexin HCl (Cephalexin 250 Mg Capsule) 500 mg PO X1 ONE Stop: 04/09/25 13:18 Last Admin: 04/09/25 14:28 Dose: 500 mg Documented By: Tayler Richards Consultations Consultation(s) initiated? (list below): No Diagnosis Skin/Abscess Differential Diagnosis: cellulitis and other (DVT, leg swelling, PAD) Most likely diagnosis given after review of the tests above:: PAD,, cellulitis, ESRD Admission Indicated Admission indicated?: not indicated Admission Request Was there a request for admission?: No Disposition Plan Disposition Plan: Discharge Discharge Attestation Discharge Attestation: The patient was given an opportunity to ask questions and understood the discharge instructions. Discharge instructions specifically effects, indications for sooner follow up or return to the emergency department, and the expected course of current diagnosis. Patient condition: Stable Discharge Plan Plan Patient Disposition: HOME (Self Care) Discharge Disposition comment: stable Prescriptions/Referrals Prescriptions/Med Rec: New cephalexin 500 mg capsule 500 mg PO Q8H 7 Days Qty: 21 0RF pentoxifylline 400 mg tablet extended release 400 mg PO TID Qty: 30 0RF Rx Instructions: must administer with a meal/food No Action nifedipine 90 mg tablet extended release 24hr 90 mg PO QDAY calcium acetate(phosphat bind) 667 mg capsule 667 mg PO TID Patient Comments: TAKE ONE CAPSULE BY MOUTH THREE TIMES DAILY Rx Instructions: with meals sertraline 50 mg Tablet 50 mg PO QDAY allopurinol 300 mg Tablet 300 mg PO QDAY folic acid 1 mg Tablet 1 mg PO QDAY levetiracetam 500 mg Tablet 500 mg PO BID insulin glargine [Lantus Solostar U-100 Insulin] 100 unit/mL (3 mL) insulin pen 10 unit SUBCUT QPM Qty: 15 0RF Patient Comments: INJECT 90 UNITS SUBCUTANEOUSLY TWICE DAILY hydralazine 100 mg tablet 100 mg PO TID Qty: 90 0RF lisinopril 40 mg Tablet 40 mg PO BID Qty: 60 0RF levothyroxine 25 mcg Tablet 25 mcg PO ACBR Qty: 30 0RF amoxicillin-pot clavulanate 875-125 mg tablet 1 tab PO BID Qty: 20 0RF aspirin [Adult Low Dose Aspirin] 81 mg tablet,delayed release (DR/EC) 81 mg PO QDAY Qty: 30 0RF atorvastatin 40 mg tablet 40 mg PO QPM Qty: 30 0RF ciprofloxacin HCl 500 mg tablet 500 mg PO BID Qty: 20 0RF ondansetron 4 mg tablet,disintegrating 4 mg PO Q8H PRN (Reason: nausea and vomiting) Qty: 10 0RF amoxicillin-pot clavulanate [Augmentin] 500-125 mg tablet 1 tab PO TID MDD 3 Qty: 30 0RF amoxicillin-pot clavulanate [Augmentin] 500-125 mg tablet 1 tab PO BID Qty: 20 0RF meclizine 25 mg tablet 25 mg PO BID PRN (Reason: dizziness) Qty: 20 0RF scopolamine base [Transderm-Scop] 1 mg over 3 days patch 3 day 1 mg topical .q72 hours PRN (Reason: dizziness or vertigo) Qty: 4 0RF Referrals: Radha Mane PA-C [Primary Care Provider, Family Practice] - In 1 week Problem List Clinical Impression: PAD (peripheral artery disease), Cellulitis of leg Patient/Caregiver Discharge Instructions Discharge Activity: activity as tolerated Education Materials: ED Cellulitis Additional Instructions: Thank you for the opportunity for serving you today. You are stable for discharged . You are advised to: Follow-up with your PCP in 1 to 2 days Return to ED for worsening of symptoms As your PCP to refer you to a vascular surgeon for your peripheral arterial disease Take medication as prescribed Print Language: Indonesian Stand Alone Forms: Latonya Award Info., Patient Portal Info Letter VINOD Supervising Physician VINOD Supervising Physician: MD Chad
[2025-04-09 13:33] LABS: Basophils # (Auto) 0.0 Thou/mm3 (0.0-0.2); Basophils % (Auto) 0 % (0-2.5); Eosinophils # (Auto) 0.2 Thou/mm3 (0.0-0.5); Eosinophils % (Auto) 3 % (0-10); Hematocrit 33.2 % (36.0-46.0); Hemoglobin 10.7 g/dL (12.0-16.0); Immature Granulocytes Auto 0.02 Thou/mm3 (0.00-0.00); Lymphocytes # (Auto) 1.0 Thou/mm3 (1.0-4.8); Lymphocytes % (Auto) 17 % (10-50); Mean Corpuscular HGB Conc 32.2 g/dl (31.0-37.0); Mean Corpuscular Hemoglobin 30.8 pg (25.0-35.0); Mean Corpuscular Volume 96 fL (80-100); Monocytes # (Auto) 0.5 Thou/mm3 (0.0-0.8); Monocytes % (Auto) 8 % (0-12); Neutrophils # (Auto) 4.4 Thou/mm3 (1.8-7.7); Neutrophils % (Auto) 72 % (37-80); Nucleated Red Blood Cell # 0.00 Thou/mm3 (0.00-0.00); Nucleated Red Blood Cell % 0 /100 WBC (0); Platelet Count 187 Thou/mm3 (140-440); RDW Standard Deviation 55.4 fL (36.4-46.3); Red Blood Count 3.47 Miln/mm3 (4.00-5.20); White Blood Count 6.1 Thou/mm3 (3.6-11.0)
[2025-04-09 13:51] LABS: Alanine Aminotransferase 8 U/L (10-49); Albumin, Serum 4.8 gm/dL (3.5-5.0); Albumin/Globulin Ratio 1.3 (1.2-2.2); Alkaline Phosphatase 65 U/L (46-116); Anion Gap 11 (7-16); Aspartate Amino Transferase 12 U/L (0-34); BUN/Creatinine Ratio 8 Ratio (12-20); Bilirubin,Total 0.4 mg/dL (0.3-1.2); Blood Urea Nitrogen 39 mg/dL (9-23); Calcium 8.5 mg/dL (8.3-10.6); Calcium (Corrected) 8.5 mg/dL (8.5-10.1); Carbon Dioxide 31.5 mMol/L (20.0-31.0); Chloride 96 mMol/L (98-107); Creatinine (Component) 5.0 mg/dL (0.6-1.3); Estimated Creatinine Clearance 14.6 mL/min (>60); Globulin 3.6 gm/dL (2.3-3.5); Glucose 171 mg/dL (74-106); Osmolality,Calculated 289 (275-295); Potassium 3.4 mMol/L (3.4-5.1); Sodium 138 mMol/L (136-145); Total Protein 8.4 gm/dL (5.7-8.2); eGFR 10 See Note
[2025-04-09 16:21] VITALS: BP 120/71; PULSE 82; RESP 16; TEMP 36.9; O2SAT 98
== END 2025-04-09 17:15 | disposition home or self-care (01) ==
PROVIDERS: Nurse Practitioner Family; Emergency Provider Family Medicine; PCP Physician Assistant
DX: E11.51 Type 2 diabetes mellitus with diabetic peripheral angiopathy without gangrene (principal); E11.22 Type 2 diabetes mellitus with diabetic chronic kidney disease; L03.115 Cellulitis of right lower limb; N18.6 End stage renal disease; I12.0 Hypertensive chronic kidney disease with stage 5 chronic kidney disease or end stage renal disease; Z99.2 Dependence on renal dialysis
CPT/HCPCS: 36415; 80053; 85025; 93926; 99283; A9270